=== PATIENT | female | born 1940 ===

== ENCOUNTER → 2018-06-23 09:46 | Outpatient (CLI) | payer MEDICARE, OTHER, SELFPAY | PROVIDERS: Visit Provider Family Medicine | DX: T81.31XA Disruption of external operation (surgical) wound, not elsewhere classified, initial encounter (principal); S91.001A Unspecified open wound, right ankle, initial encounter; S81.802A Unspecified open wound, left lower leg, initial encounter; I73.9 Peripheral vascular disease, unspecified | CPT/HCPCS: 11042; 93922; 99203 ==

== ENCOUNTER → 2018-06-30 09:56 | Outpatient (CLI) | payer MEDICARE, OTHER, SELFPAY | PROVIDERS: PCP Physician Assistant; Visit Provider Family Medicine | DX: S91.001A Unspecified open wound, right ankle, initial encounter (principal); S81.802A Unspecified open wound, left lower leg, initial encounter; I73.9 Peripheral vascular disease, unspecified | CPT/HCPCS: 11042; 87070; 87075; 87077; 87147; 87186; 87205; 97597 ==

== ENCOUNTER → 2018-07-07 10:02 | Outpatient (CLI) | payer MEDICARE, OTHER, SELFPAY | PROVIDERS: PCP Physician Assistant; Visit Provider Family Medicine | DX: S91.001A Unspecified open wound, right ankle, initial encounter (principal); S81.802A Unspecified open wound, left lower leg, initial encounter; I73.9 Peripheral vascular disease, unspecified; L08.9 Local infection of the skin and subcutaneous tissue, unspecified | CPT/HCPCS: 11042; 11043; 87070; 87075; 87077; 87147; 87186; 87205; 99214 ==

== ENCOUNTER → 2018-07-14 10:08 | Outpatient (CLI) | payer MEDICARE, OTHER, SELFPAY | PROVIDERS: PCP Physician Assistant; Visit Provider Family Medicine | DX: S91.001A Unspecified open wound, right ankle, initial encounter (principal); S81.802A Unspecified open wound, left lower leg, initial encounter; I73.9 Peripheral vascular disease, unspecified; L08.9 Local infection of the skin and subcutaneous tissue, unspecified | CPT/HCPCS: 97597; 99213 ==

== ENCOUNTER → 2018-07-28 10:07 | Outpatient (CLI) | payer MEDICARE, OTHER, SELFPAY | PROVIDERS: PCP Physician Assistant; Visit Provider Family Medicine | DX: S91.001A Unspecified open wound, right ankle, initial encounter (principal); S81.802A Unspecified open wound, left lower leg, initial encounter; I73.9 Peripheral vascular disease, unspecified | CPT/HCPCS: 11042 ==

== ENCOUNTER → 2018-08-04 13:30 | Outpatient (CLI) | payer MEDICARE, OTHER, SELFPAY | PROVIDERS: PCP Physician Assistant; Visit Provider Family Medicine | DX: S91.001A Unspecified open wound, right ankle, initial encounter (principal); S81.802D Unspecified open wound, left lower leg, subsequent encounter; I73.9 Peripheral vascular disease, unspecified | CPT/HCPCS: 15271; Q4196 ==

== ENCOUNTER → 2018-08-11 09:04 | Outpatient (CLI) | payer MEDICARE, OTHER, SELFPAY | PROVIDERS: PCP Physician Assistant; Visit Provider Family Medicine | DX: S91.001A Unspecified open wound, right ankle, initial encounter (principal); I73.9 Peripheral vascular disease, unspecified | CPT/HCPCS: 15271; Q4196 ==

== ENCOUNTER → 2018-08-18 09:39 | Outpatient (CLI) | payer MEDICARE, OTHER, SELFPAY | PROVIDERS: PCP Physician Assistant; Visit Provider Family Medicine | DX: S91.001A Unspecified open wound, right ankle, initial encounter (principal); I73.9 Peripheral vascular disease, unspecified | CPT/HCPCS: 15271; Q4196 ==

== ENCOUNTER → 2018-08-25 10:08 | Outpatient (CLI) | payer MEDICARE, OTHER, SELFPAY | PROVIDERS: PCP Physician Assistant; Visit Provider Family Medicine | DX: S91.001A Unspecified open wound, right ankle, initial encounter (principal); I73.9 Peripheral vascular disease, unspecified | CPT/HCPCS: 11042; 87070; 87077; 87186; 87205 ==

== ENCOUNTER → 2018-08-27 09:13 | Outpatient (CLI) | payer MEDICARE, OTHER, SELFPAY | PROVIDERS: PCP Physician Assistant; Visit Provider Family Medicine | DX: L89.613 Pressure ulcer of right heel, stage 3 (principal); S31.40XA Unspecified open wound of vagina and vulva, initial encounter; S71.102A Unspecified open wound, left thigh, initial encounter; B95.62 Methicillin resistant Staphylococcus aureus infection as the cause of diseases classified elsewhere; L08.9 Local infection of the skin and subcutaneous tissue, unspecified; G82.21 Paraplegia, complete; T88.7XXA Unspecified adverse effect of drug or medicament, initial encounter | CPT/HCPCS: 99214 ==

== ENCOUNTER → 2018-09-01 10:04 | Outpatient (CLI) | payer MEDICARE, OTHER, SELFPAY | PROVIDERS: PCP Physician Assistant; Visit Provider Family Medicine | DX: S91.001A Unspecified open wound, right ankle, initial encounter (principal); I73.9 Peripheral vascular disease, unspecified | CPT/HCPCS: 11042 ==

== ENCOUNTER → 2018-09-08 09:19 | Outpatient (CLI) | payer MEDICARE, OTHER, SELFPAY | PROVIDERS: PCP Physician Assistant; Visit Provider Family Medicine | DX: I87.311 Chronic venous hypertension (idiopathic) with ulcer of right lower extremity (principal); L97.812 Non-pressure chronic ulcer of other part of right lower leg with fat layer exposed | CPT/HCPCS: 15271; Q4132 ==

== ENCOUNTER → 2018-09-15 10:26 | Outpatient (CLI) | payer MEDICARE, OTHER, SELFPAY | PROVIDERS: PCP Physician Assistant; Visit Provider Family Medicine | DX: I87.311 Chronic venous hypertension (idiopathic) with ulcer of right lower extremity (principal); L97.812 Non-pressure chronic ulcer of other part of right lower leg with fat layer exposed | CPT/HCPCS: 15271; Q4132 ==

== ENCOUNTER → 2018-09-22 10:21 | Outpatient (CLI) | payer MEDICARE, OTHER, SELFPAY | PROVIDERS: PCP Physician Assistant; Visit Provider Family Medicine | DX: I87.311 Chronic venous hypertension (idiopathic) with ulcer of right lower extremity (principal); L97.312 Non-pressure chronic ulcer of right ankle with fat layer exposed | CPT/HCPCS: 97597 ==

== ENCOUNTER → 2018-09-29 11:41 | Outpatient (CLI) | payer MEDICARE, OTHER, SELFPAY | PROVIDERS: PCP Physician Assistant; Visit Provider Family Medicine | DX: Z48.817 Encounter for surgical aftercare following surgery on the skin and subcutaneous tissue (principal) | CPT/HCPCS: 99212; 99213 ==

== ENCOUNTER → 2021-11-30 09:33 | Outpatient (CLI) | payer MEDICARE, OTHER, SELFPAY | PROVIDERS: Referring Provider Dermatology MOHS-Micrographic Surgery; Visit Provider Nurse Practitioner Family | DX: S81.801A Unspecified open wound, right lower leg, initial encounter (principal) | CPT/HCPCS: 11042; 99203; 99213 ==

== ENCOUNTER → 2021-12-07 10:02 | Outpatient (CLI) | payer MEDICARE, OTHER, SELFPAY | PROVIDERS: PCP Physician Assistant; Referring Provider Dermatology MOHS-Micrographic Surgery; Visit Provider Family Medicine | DX: S81.801A Unspecified open wound, right lower leg, initial encounter (principal) | CPT/HCPCS: 99212 ==

== ENCOUNTER → 2021-12-14 10:55 | Outpatient (CLI) | payer MEDICARE, OTHER, SELFPAY | PROVIDERS: PCP Physician Assistant; Referring Provider Dermatology MOHS-Micrographic Surgery; Visit Provider Nurse Practitioner Family | DX: S81.801A Unspecified open wound, right lower leg, initial encounter (principal) | CPT/HCPCS: 11042 ==

== ENCOUNTER → 2021-12-28 11:15 | Outpatient (CLI) | payer MEDICARE, OTHER, SELFPAY | PROVIDERS: PCP Physician Assistant; Referring Provider Dermatology MOHS-Micrographic Surgery; Visit Provider Nurse Practitioner Family | DX: S81.801A Unspecified open wound, right lower leg, initial encounter (principal) | CPT/HCPCS: 15271; Q4196 ==

== ENCOUNTER → 2022-01-04 10:47 | Outpatient (CLI) | payer MEDICARE, OTHER, SELFPAY | PROVIDERS: PCP Physician Assistant; Referring Provider Dermatology MOHS-Micrographic Surgery; Visit Provider Nurse Practitioner Family | DX: S81.801A Unspecified open wound, right lower leg, initial encounter (principal); C44.722 Squamous cell carcinoma of skin of right lower limb, including hip | CPT/HCPCS: 15271; Q4196 ==

== ENCOUNTER → 2022-01-11 14:05 | Outpatient (CLI) | payer MEDICARE, OTHER, SELFPAY | PROVIDERS: PCP Physician Assistant; Referring Provider Dermatology MOHS-Micrographic Surgery; Visit Provider Nurse Practitioner Family | DX: S81.801A Unspecified open wound, right lower leg, initial encounter (principal) | CPT/HCPCS: 15271; Q4195 ==

== ENCOUNTER → 2022-01-18 13:33 | Outpatient (CLI) | payer MEDICARE, OTHER, SELFPAY | PROVIDERS: PCP Physician Assistant; Referring Provider Dermatology MOHS-Micrographic Surgery; Visit Provider Family Medicine | DX: S81.801A Unspecified open wound, right lower leg, initial encounter (principal) | CPT/HCPCS: 15271; Q4195 ==

== ENCOUNTER → 2022-01-25 13:54 | Outpatient (CLI) | payer MEDICARE, OTHER, SELFPAY | PROVIDERS: PCP Physician Assistant; Referring Provider Physician Assistant; Visit Provider Nurse Practitioner Family | DX: S81.801A Unspecified open wound, right lower leg, initial encounter (principal); T81.89XA Other complications of procedures, not elsewhere classified, initial encounter | CPT/HCPCS: 15271; Q4195 ==

== ENCOUNTER → 2022-03-01 10:32 | Outpatient (CLI) | payer MEDICARE, OTHER, SELFPAY | PROVIDERS: PCP Physician Assistant; Referring Provider Physician Assistant; Visit Provider Nurse Practitioner Family | DX: S81.801D Unspecified open wound, right lower leg, subsequent encounter (principal) | CPT/HCPCS: 99213 ==

== ENCOUNTER 2022-09-19 22:02 | Inpatient (IN) | payer MEDICARE, OTHER, SELFPAY ==
[2022-09-19 22:06] VITALS: BP 204/102; PULSE 97; O2SAT 95
--- NOTE | 2022-09-19 22:08 | DI.RAD.S_ITS ---
PROCEDURE: XR HIP W PEL IF DONE LT 2V INDICATIONS: fall, left hip appears dislocated. TECHNIQUE: AP pelvis with lateral views of the left hip. COMPARISON: None. FINDINGS: Bones: Evaluation is limited by patient position. There is a mildly displaced fracture of the proximal left femoral shaft with marked varus angulation medially. No definite dislocation of the hip joint. Soft tissues: The visualized bowel gas pattern is normal. No suspicious soft tissue calcifications. IMPRESSION: 1. Mildly displaced proximal left femoral shaft fracture with marked varus angulation medially. Dictated by: Karan Gilliland M.D. on 09/19/2022 at 23:06 Approved by: Karan Gilliland M.D. on 09/19/2022 at 23:08
--- NOTE | 2022-09-19 22:08 | DI.RAD.S_ITS ---
PROCEDURE: XR CHEST 1V INDICATIONS: fall, left hip appears dislocated. TECHNIQUE: One view of the chest was acquired. COMPARISON: None. FINDINGS: Surgical changes and devices: None. Lungs and pleura: Evaluation limited by patient rotation. There are confluent left perihilar opacities. No pleural effusions or pneumothorax. Mediastinum: Mediastinal contours appear normal. Heart size is normal. Bones and chest wall: No suspicious bony lesions. Overlying soft tissues appear unremarkable. IMPRESSION: 1. Confluent left perihilar opacities may represent a hilar mass versus adjacent airspace consolidation. Recommend further evaluation with a contrast enhanced CT. Dictated by: Karan Gilliland M.D. on 09/19/2022 at 23:18 Approved by: Karan Gilliland M.D. on 09/19/2022 at 23:20
[2022-09-19 22:09] VITALS: BP 201/102; PULSE 96; RESP 18; TEMP 36.8; O2SAT 97; BMI 25.7
--- NOTE | 2022-09-19 22:14 | ED_ITS ---
HPI - Extremity Injury (Lower) General Chief Complaint: Extremity Injury, Lower Stated Complaint: GLF- left hip pain Time Seen by Provider: 09/19/22 22:08 Source: patient and EMS Mode of arrival: EMS History of Present Illness HPI Narrative: This is an 81-year-old female with history of hypertension, dyslipidemia on metoprolol, atorvastatin and lisinopril. Patient was taking her trash can out walking the trash can down it started to roll away she fell forward and hurt her right hip. Patient was stuck on the ground for about an hour but was warm evening out. Neighbors found her EMS was contacted and patient was transported. Patient has pain and right hip. Despite denies injury elsewhere. Denies hitting her head, states she fell more forward. She denies headache, neck or back pain. No chest pain or shortness of breath. No nausea or vomiting. No loss of bowel or bladder control. Patient states her leg feels a little bit tingling. She can plantar and dorsiflex her foot on the right. Patient states she has never had any prior hip replacements or injuries. No known drug allergies. No tobacco, occasional alcohol, no illicit. Patient's primary care is [facility]. Related Data Home Medications Medication Instructions Recorded Confirmed atorvastatin 10 mg tablet 10 mg PO QAM 09/20/22 09/20/22 lisinopril 20 mg tablet 20 mg PO QAM 09/20/22 09/20/22 metoprolol succinate 50 mg 50 mg PO BID 09/20/22 09/20/22 tablet,extended release 24 hr Allergies Allergy/AdvReac Type Severity Reaction Status Date / Time No Known Drug Allergies Allergy Verified 09/19/22 22:13 Review of Systems Review of Systems ROS Unobtainable: All systems reviewed & are unremarkable except as noted in HPI and below Patient History Medical History (Updated 09/20/22 @ 04:38 by Jacque Haq DO) Dyslipidemia Essential hypertension History of bladder cancer Surgical History (Updated 09/20/22 @ 02:21 by MARIYA Bryant) History of appendectomy Family History (Updated 09/20/22 @ 02:22 by MARIYA Bryant) Father CVA (cerebral vascular accident) Mother Diabetes mellitus Social History (Updated 09/20/22 @ 02:23 by MARIYA Bryant) marital status: household members: none lives independently: Yes (In detention community) caregiver/support person: No Smoking Status: Former smoker Tobacco: How many years used: 40 alcohol intake: current substance use type: does not use additional social history: Daughter lives in [place]. Smoking Status: Never smoker alcohol intake frequency: 0-2 drinks per day Substance Use Type: does not use Exam Narrative Exam Narrative: GEN: Patient appears in mild distress. HEAD: No evidence of trauma, no raccoon/Mcconnell sign. NECK: Nontender, painless range of motion, trachea midline, no midline line tenderness,altered mental status, neuro deficit, recent EtOH. EYES: PERRLA, EOMI ENT: External inspection normal, trachea is midline, TM's are normal no hemotypanum, Nares are clear, no septal hematoma, no dental or oral injury, airway is normal and with normal occlusion, No bony tenderness RESP: Chest is nontender and has symmetric movement, no ecchymosis, breath sounds are normal no crackles, wheezes or rales CVS: Heart sounds are normal, no murmur noted, No JVD. ABG/GI: Nontender, soft, normal bowel sounds, no distention, no organomegaly, pelvic rock is negative but difficulty second to patient deformity at hip. NEURO: Oriented AOx3, neuro is grossly intact, sensation and motor is normal all 4 extremities moving, cranial nerves II through XII are intact, GCS is 15 PSYCH: Normal mood and affect SKIN: Intact, warm and dry, no crepitus and without decubitus BACK: No CVA tenderness, no vertebral tenderness, no step-off's, no crepitus EXT: Patient has obvious deformity at the right hip, patient is lying on her side but right hip is got deformity with from just below the hip the leg being internally rotated. Patient has 2+ dorsalis pedis. She is normal plantar dorsiflexion. She has sensation to light touch throughout the leg. Patient has normal range of motion of all other extremities. No other bony tenderness of the left lower extremity or other extremities. 2+ pulses in all 4 extremities. Initial Vital Signs Initial Vital Signs: Vital Signs Pulse Rate 97 H 09/19/22 22:06 Blood Pressure 204/102 H 09/19/22 22:06 Pulse Oximetry 95 06/08/23 22:06 Oxygen Delivery Method Room Air 09/19/22 22:06 Course Orders Ordered: ED Orders 09/19/22 22:08 Chest [XR chest 1V] Stat XR hip w pel if done LT 2V Stat 09/19/22 22:20 CBC Auto Diff [Complete Blood Count AUTO DIFF] Stat CMP [Comprehensive Metabolic Panel] Stat Lipase Stat Type and Screen Stat Acetaminophen (Acetaminophen 325 Mg Tablet) 650 mg PO Q6H PRN PRN Reason: Fever/Mild Pain (1-3) Last Admin: 09/20/22 02:44 Dose: 650 mg Documented By: CT Calcium Carbonate (Calcium Carbonate 500 Mg Tab) 1,000 mg PO Q4HR PRN PRN Reason: Dyspepsia Dextrose/Sodium Chloride (Dextrose 5%-0.9% Ns) 1,000 mls @ 80 mls/hr IV CONT NUBIA Last Admin: 09/20/22 01:03 Dose: 80 mls/hr Documented By: SB Lisinopril (Lisinopril 20 Mg Tablet) 20 mg PO QAM NUBIA Lorazepam (Lorazepam 2 Mg/Ml Inj) 0.5 mg IV Q4HR PRN PRN Reason: Muscle Spasm Metoprolol Succinate (Metoprolol Er 50 Mg Tablet) 50 mg PO BID NUBIA Morphine Sulfate (Morphine 4 Mg/Ml Inj) 3 mg IV Q4HR PRN PRN Reason: Pain, Severe 5-10 Last Admin: 09/20/22 01:10 Dose: 3 mg Documented By: SB Naloxone HCl (Naloxone 0.4 Mg/Ml Vial) 0.2 mg IV Q2MIN PRN PRN Reason: Opiate Reversal Ondansetron HCl (Ondansetron 4 Mg/2 Ml Inj) 4 mg IV Q8HR PRN PRN Reason: Nausea And Vomiting Sennosides (Sennosides 8.6 Mg Tablet) 17.2 mg PO BEDTIME [facility] Discontinued Medications Lisinopril (Lisinopril 20 Mg Tablet) 20 mg PO NOW ONE Stop: 09/19/22 23:56 Last Admin: 09/20/22 01:04 Dose: Not Given Documented By: SB Metoprolol Tartrate (Metoprolol Tartrate 5 Mg/5 Ml Inj) 5 mg IV Q15M NUBIA Stop: 09/20/22 00:16 Last Admin: 09/20/22 02:48 Dose: Not Given Documented By: Admin: 09/20/22 01:04 Dose: Not Given Documented By: Admin: 09/20/22 00:55 Dose: Not Given Documented By: RAHAT Morphine Sulfate (Morphine 4 Mg/Ml Inj) 4 mg IV Q4HR PRN PRN Reason: Pain, Severe (7-10) Last Admin: 09/19/22 23:28 Dose: 4 mg Documented By: BULMARO Vital Signs Vital signs: Vital Signs - 8 hr 09/19/22 22:09 09/19/22 22:06 09/19/22 22:06 Temperature 98.2 F Pulse Rate 96 H 97 H Respiratory Rate 18 Blood Pressure 201/102 H 204/102 H Pulse Oximetry 97 95 Oxygen Delivery Method Room Air Room Air 09/19/22 22:30 09/19/22 23:00 Temperature Pulse Rate 88 103 H Respiratory Rate Blood Pressure Pulse Oximetry 96 98 Oxygen Delivery Method Room Air MDM - Extremity Injury (Lower) Lab Data 09/19/22 22:20 09/19/22 22:20 Labs: Lab Results 09/19/22 09/19/22 09/19/22 Range/Units 22:20 22:20 22:20 WBC 12.0 H (4.5-11.0) X10^3/uL RBC 3.48 L (4.0-5.2) X10^6/uL Hgb 10.8 L (12.0-16.0) g/dL Hct 31.9 L (36-46) % MCV 91.7 (80-100) fL MCH 31.0 (26-34) PG MCHC 33.8 (30-36) % RDW 13.3 (11.6-14.8) % Plt Count 236 (150-400) X10^3/uL Neut % (Auto) 84.0 H (50-75) % Lymph % (Auto) 8.2 L (25-40) % [place] % (Auto) 6.9 (3-14) % Eos % (Auto) 0.4 L (2-4) % Baso % (Auto) 0.5 (0-2) % Neut # (Auto) 49802 H (8084-6045) /uL Lymph # (Auto) 1000 L (7271-1613) /uL [place] # (Auto) 800 (0-900) /uL Eos # (Auto) 0 (0-450) /uL Baso # (Auto) 100 (0-100) /uL Sodium 137 (137-145) mmol/L Potassium 3.7 (3.4-5.1) mmol/L Chloride 105 (98-107) mmol/L Carbon Dioxide 25 (22-32) mmol/L BUN 18 H (7-17) mg/dL Creatinine 0.50 L (0.52-1.04) mg/dL Estimated GFR > 60 (>60) mL/min BUN/Creatinine Ratio 36.0 H (6-22) Glucose 128 H (80-110) mg/dL Calcium 9.0 (8.4-10.2) mg/dL Magnesium (1.6-2.3) mg/dL Total Bilirubin 0.5 (0.2-1.3) mg/dL AST 32 (14-36) IU/L ALT 17 (<35) IU/L Alkaline Phosphatase 115 (38-126) U/L Troponin I (0.01-0.034) ng/mL Total Protein 6.6 (6.3-8.2) g/dL Albumin 3.6 (3.5-5.0) g/dL Globulin 3.0 (1.7-4.1) g/dL Albumin/Globulin Ratio 1.2 (1.0-2.8) Lipase 114 (23-300) U/L Procalcitonin (<0.5) ng/mL TSH (0.47-4.68) uIU/mL Free T4 (0.78-2.19) ng/dL Blood Type O Negative Antibody Screen Negative 09/19/22 09/19/22 09/19/22 Range/Units 22:20 22:20 22:20 WBC (4.5-11.0) X10^3/uL RBC (4.0-5.2) X10^6/uL Hgb (12.0-16.0) g/dL Hct (36-46) % MCV (80-100) fL MCH (26-34) PG MCHC (30-36) % RDW (11.6-14.8) % Plt Count (150-400) X10^3/uL Neut % (Auto) (50-75) % Lymph % (Auto) (25-40) % [place] % (Auto) (3-14) % Eos % (Auto) (2-4) % Baso % (Auto) (0-2) % Neut # (Auto) (4657-1297) /uL Lymph # (Auto) (5619-3412) /uL [place] # (Auto) (0-900) /uL Eos # (Auto) (0-450) /uL Baso # (Auto) (0-100) /uL Sodium (137-145) mmol/L Potassium (3.4-5.1) mmol/L Chloride (98-107) mmol/L Carbon Dioxide (22-32) mmol/L BUN (7-17) mg/dL Creatinine (0.52-1.04) mg/dL Estimated GFR (>60) mL/min BUN/Creatinine Ratio (6-22) Glucose (80-110) mg/dL Calcium (8.4-10.2) mg/dL Magnesium 1.2 L (1.6-2.3) mg/dL Total Bilirubin (0.2-1.3) mg/dL AST (14-36) IU/L ALT (<35) IU/L Alkaline Phosphatase (38-126) U/L Troponin I 0.025 (0.01-0.034) ng/mL Total Protein (6.3-8.2) g/dL Albumin (3.5-5.0) g/dL Globulin (1.7-4.1) g/dL Albumin/Globulin Ratio (1.0-2.8) Lipase (23-300) U/L Procalcitonin (<0.5) ng/mL TSH 2.09 (0.47-4.68) uIU/mL Free T4 1.18 (0.78-2.19) ng/dL Blood Type Antibody Screen 09/19/22 Range/Units 22:20 WBC (4.5-11.0) X10^3/uL RBC (4.0-5.2) X10^6/uL Hgb (12.0-16.0) g/dL Hct (36-46) % MCV (80-100) fL MCH (26-34) PG MCHC (30-36) % RDW (11.6-14.8) % Plt Count (150-400) X10^3/uL Neut % (Auto) (50-75) % Lymph % (Auto) (25-40) % [place] % (Auto) (3-14) % Eos % (Auto) (2-4) % Baso % (Auto) (0-2) % Neut # (Auto) (6772-9084) /uL Lymph # (Auto) (1142-7421) /uL [place] # (Auto) (0-900) /uL Eos # (Auto) (0-450) /uL Baso # (Auto) (0-100) /uL Sodium (137-145) mmol/L Potassium (3.4-5.1) mmol/L Chloride (98-107) mmol/L Carbon Dioxide (22-32) mmol/L BUN (7-17) mg/dL Creatinine (0.52-1.04) mg/dL Estimated GFR (>60) mL/min BUN/Creatinine Ratio (6-22) Glucose (80-110) mg/dL Calcium (8.4-10.2) mg/dL Magnesium (1.6-2.3) mg/dL Total Bilirubin (0.2-1.3) mg/dL AST (14-36) IU/L ALT (<35) IU/L Alkaline Phosphatase (38-126) U/L Troponin I (0.01-0.034) ng/mL Total Protein (6.3-8.2) g/dL Albumin (3.5-5.0) g/dL Globulin (1.7-4.1) g/dL Albumin/Globulin Ratio (1.0-2.8) Lipase (23-300) U/L Procalcitonin 0.05 (<0.5) ng/mL TSH (0.47-4.68) uIU/mL Free T4 (0.78-2.19) ng/dL Blood Type Antibody Screen Imaging Data Chest x-ray: Radiologist's Impression: Close Hip X-Ray (Signed) Karan Gilliland - 09/19/22 Chest X-Ray (Signed) Karan Gilliland - 09/19/[address] [address] XRay Report Signed Patient: Gini Sylvester MR#: [id number] : 1940 Acct:[id number] Age/Sex: 81 / F Date of Service: 09/19/22 Loc: ED Accession Number: [id number] ?? Procedure: XR chest 1V Ordering Provider: Jacque Haq D.O. PROCEDURE:? XR CHEST 1V ? INDICATIONS:? fall, left hip appears dislocated. ? TECHNIQUE:? One view of the chest was acquired.? ? COMPARISON:? None. ? FINDINGS:? ? Surgical changes and devices:? None.? ? Lungs and pleura:? Evaluation limited by patient rotation.? There are confluent left perihilar opacities.? No pleural effusions or pneumothorax.? ? Mediastinum:? Mediastinal contours appear normal.? Heart size is normal.? ? Bones and chest wall:? No suspicious bony lesions.? Overlying soft tissues appear unremarkable.? ? IMPRESSION:? ? 1. Confluent left perihilar opacities may represent a hilar mass versus adjacent airspace consolidation.? Recommend further evaluation with a contrast enhanced CT. ? ? Dictated by: Karan Gilliland M.D. on 09/19/2022 at 23:18 ? ? Approved by: Karan Gilliland M.D. on 09/19/2022 at 23:20?? pelvic xray: Radiologist's Impression: Gini Sylvester??81??F??1940 ? Allergy/Adv: No Known Drug Allergies Close Hip X-Ray (Signed) Karan Gilliland - 09/19/22 Chest X-Ray 09/19/22 [place] [address] XRay Report Signed Patient: Gini Sylvester MR#: [id number] : 1940 Acct:[id number] Age/Sex: 81 / F Date of Service: 09/19/22 Loc: ED Accession Number: [id number] ?? Procedure: XR hip w pel if done LT 2V Ordering Provider: Jacque Haq D.O. PROCEDURE:? XR HIP W PEL IF DONE LT 2V ? INDICATIONS:? fall, left hip appears dislocated. ? TECHNIQUE:? AP pelvis with lateral views of the left hip. ? COMPARISON:? None. ? FINDINGS:? ? Bones:? Evaluation is limited by patient position.? There is a mildly displaced fracture of the proximal left femoral shaft with marked varus angulation medially.? No definite dislocation of the hip joint. ? Soft tissues:? The visualized bowel gas pattern is normal.? No suspicious soft tissue calcifications.? ? ? IMPRESSION:? ? 1. Mildly displaced proximal left femoral shaft fracture with marked varus angulation medially. ? ? ? Dictated by: Karan Gilliland M.D. on 09/19/2022 at 23:06 ? ? Approved by: Karan Gilliland M.D. on 09/19/2022 at 23:08?? ECG Data Attestation: I personally reviewed and interpreted this ECG as follows: Prior ECG tracings: not available for review Interpretation: Rate of 98, QRS is 74 QTC of 428. Irregular rhythm AFib. Nonspecific change. MDM Narrative Medical decision making narrative: This is an 81-year-old pleasant female with no history anticoagulation with hypertension and dyslipidemia who describes falling while taking out her trash and the can got away from her pulling her forward and down. Patient has obvious deformity at the left hip initially suspected to be dislocated but is actually fractured with significant angulation. Patient is neurovascularly intact she does describe a little bit of numbness and tingling. Chest obvious fracture, some confluent left perihilar opacities show white count 12 hemoglobin of 10, depressed comparison. Normal platelets 236. Electrolytes overall normal BUN 18, creatinine 0.5, glucose 128, troponin LFTs are all negative. Patient denies hitting her head, neck pain or other injuries. Patient is tolerating degree of angulation quite well, she would 150 mcg of fentanyl in route, she did have some additional doses of pain medication here. Case was discussed with Dr. Wyman, orthopedic surgery: He was asked to review images, did so and does ask for patient to be placed in Gross's traction with admission to hospitalist service. Spoke with AISSATOU Rees: Accepts for admission. Patient was placed in Gross's traction here in the department with myself and nursing, patient was given pain medication just prior. She tolerated procedure remarkably well. Patient continued to be neurovascularly intact pre and post placement. Still has some deformity at anterior thigh. Continued to be hemodynamically stable here in the department. No new or worsening neurovascular changes. Patient was type and screened for potential bleeding. Discharge Plan Departure Patient Disposition: Admitted As Inpatient Clinical Impression: Closed left femoral fracture, Fall Admit Date/Time: 09/19/22 23:26 Admit Provider: Lanny Rees
[2022-09-19 22:29] LABS: Add Manual Diff / Slide Review NO; Basophils Absolute Auto 100 /uL (0-100); Basophils Percent Auto 0.5 % (0-2); Eosinophils Absolute Auto 0 /uL (0-450); Eosinophils Percent Auto 0.4 % (2-4); Hematocrit 31.9 % (36-46); Hemoglobin 10.8 g/dL (12.0-16.0); Lymphocytes Absolute Auto 1000 /uL (1100-4500); Lymphocytes Percent Auto 8.2 % (25-40); Mean Corpuscular HGB Conc 33.8 % (30-36); Mean Corpuscular Volume 91.7 fL (80-100); Monocytes Absolute Auto 800 /uL (0-900); Monocytes Percent Auto 6.9 % (3-14); Neutrophils Absolute Auto 10100 /uL (1500-7000); Platelet Count 236 X10^3/uL (150-400); Red Blood Cell Count 3.48 X10^6/uL (4.0-5.2); Red Cell Distribution Width 13.3 % (11.6-14.8)
[2022-09-19 22:30] VITALS: PULSE 88; O2SAT 96
[2022-09-19 22:46] LABS: Alanine Aminotransferase 17 IU/L (<35); Albumin 3.6 g/dL (3.5-5.0); Albumin Globulin Ratio 1.2 (1.0-2.8); Alkaline Phosphatase 115 U/L (38-126); Aspartate Aminotransferase 32 IU/L (14-36); Bilirubin Total 0.5 mg/dL (0.2-1.3); Blood Urea Nitrogen 18 mg/dL (7-17); Carbon Dioxide 25 mmol/L (22-32); Chloride 105 mmol/L (98-107); Estimated Glomerular Filt Rate > 60 mL/min (>60); Glucose 128 mg/dL (80-110); HEMOLYSIS 40 (0-50); Lipase 114 U/L (23-300); Potassium 3.7 mmol/L (3.4-5.1); Sodium 137 mmol/L (137-145); Total Protein 6.6 g/dL (6.3-8.2)
[2022-09-19 23:00] VITALS: PULSE 103; O2SAT 98
[2022-09-19] MEDS: MORPHINE 4 MG/ML INJ IV (23:28)
[2022-09-19 23:30] VITALS: BP 191/106; PULSE 95; O2SAT 97
--- NOTE | 2022-09-19 23:44 | P.HP_ITS ---
History of Present Illness History of Present Illness Date Patient Seen: 09/19/22 Time Patient Seen: 23:44 Chief complaint: GLF- left femur fracture, Afib Narrative: Gini Sylvester is a jam 81-year-old female with history of hypertension, dyslipidemia on metoprolol, atorvastatin and lisinopril.?Presented to the ED for GLF taking out the trash can down the hill of her driveway, she was found down (approx 1 hr) by neighbors brought into the ED via EMS for severe left hip pain notable varus angulation. Denies injury elsewhere, hitting her head, LOC, states she fell more forward.? In the ED patient presented with hypertensive urgency 201/102, and demonstrated atrial fibrillation with a controlled rate of [address] or T-wave changes on EKG. She denies a history of atrial fibrillation. She denies headache, neck or back pain, chest pain, shortness of breath, abd pain, nausea, vomiting.? No loss of bowel or bladder control.? Patient states her left leg feels a little bit tingling.? She can plantar and dorsiflex her foot on the right.? Patient states she has never had any prior hip replacements or injuries, no anticoagulants or ASA, No known drug allergies.? No tobacco, occasional alcohol, no illicit.? Patient's primary care is [facility]. Patient was placed in Gross's traction in ED per ortho recommendation, patient tolerated remarkably well. The time of admit temp 98.2?, 191/106, 95, 18, 97% on room air. WBC 12 with a left shift neutrophils 10,000, lymph 1000. HGB 10/HCT 31, the rest of patient's labs are normal with the exception of glucose 128. Chest x-ray shows confluent left perihilar opacities. Left hip x-ray shows mildly displaced proximal left femur fracture with marked varus angulation medially. Patient admitted for closed left femur fracture, new onset atrial fibrillation. [facility] Medical History (Updated 09/20/22 @ 02:21 by MARIYA Bryant) Dyslipidemia Essential hypertension History of bladder cancer Surgical History (Updated 09/20/22 @ 02:21 by MARIYA Bryant) History of appendectomy Family History (Updated 09/20/22 @ 02:22 by MARIYA Bryant) Father CVA (cerebral vascular accident) Mother Diabetes mellitus Social History (Updated 09/20/22 @ 02:23 by Lanny Rees [facility]) marital status: household members: none lives independently: Yes (In [facility] community) caregiver/support person: No Smoking Status: Former smoker Tobacco: How many years used: 40 alcohol intake: current substance use type: does not use additional social history: Daughter lives in [place]. Meds Home Medications and Allergies Allergies Allergy/AdvReac Type Severity Reaction Status Date / Time No Known Drug Allergies Allergy Verified 09/19/22 22:13 Review of Systems Review of Systems Narrative: All 12 point systems reviewed with the patient and are negative except otherwise documented. Exam Vital Signs (past 8 hours): - 09/19/22 22:09 09/19/22 22:06 09/19/22 22:06 Temperature 98.2 F Pulse Rate 96 H 97 H Respiratory Rate 18 Blood Pressure 201/102 H 204/102 H Pulse Oximetry 97 95 Oxygen Delivery Method Room Air Room Air 09/19/22 22:30 09/19/22 23:00 09/19/22 23:30 Temperature Pulse Rate 88 103 H Respiratory Rate Blood Pressure 191/106 H Pulse Oximetry 96 98 Oxygen Delivery Method Room Air 09/19/22 23:30 Temperature Pulse Rate 95 H Respiratory Rate Blood Pressure Pulse Oximetry 97 Oxygen Delivery Method Room Air Oxygen Delivery Method Room Air Narrative Exam Narrative: General: Patient is a well-developed, well-nourished in no distress at this time. HEENT: Normocephalic, atraumatic, extraocular muscles intact, oral pharynx is clear and mucous membranes are moist. Neck is supple and symmetric, trachea is midline, no adenopathy, no thyroid enlargement, nontender, no masses palpated. Negative for JVD Chest: Normal AP diameter and contour without kyphoscoliosis, Equal chest rise without nasal flaring, retractions, tachypneic or labored breathing. Lungs: Auscultation of all lung cardenas are clear without adventitious sounds, wheezes, rhonchi, or rales. Cardio: regular rate and rhythm without murmur, rubs, or gallops, no carotid bruit, no cardiac pulsations present. Abdomen: Soft nontender, negative for organomegaly, or masses. Bowel sounds are present in all 4 quadrants without guarding or rebound, no CVA tenderness. Musculoskeletal: Right ext & left upper ext:Muscle strength and tone are equal, no effusions, cyanosis, clubbing or edema present. intact radial and pedal pulses are normal. Left Lower Ext:obvious gross deformity at the left hip, from just below the hip the leg being internally rotated.? Patient has 2+ dorsalis pedis.?normal plantar dorsiflexion.sensation to light touch throughout the leg. No other bony tenderness of the left lower extremity or other extremities. Patient placed in Gross's traction in ED-patient tolerated procedure well. Skin: Warm dry and intact without rashes, ulcerations or petechiae. Neuro: Alert and orientated x3, no gross deficits noted of cranial nerves. Psych: Patient has a well-kept appearance, appropriate affect, mental status attitude thought context and judgment are appropriate for age. Objective Labs 09/19/22 22:20 09/19/22 22:20 Labs: Laboratory Results - last 24 hr 09/19/22 09/19/22 09/19/22 22:20 22:20 22:20 WBC 12.0 H RBC 3.48 L Hgb 10.8 L Hct 31.9 L MCV 91.7 MCH 31.0 MCHC 33.8 RDW 13.3 Plt Count 236 Neut % (Auto) 84.0 H Lymph % (Auto) 8.2 L [place] % (Auto) 6.9 Eos % (Auto) 0.4 L Baso % (Auto) 0.5 Neut # (Auto) 82125 H Lymph # (Auto) 1000 L [place] # (Auto) 800 Eos # (Auto) 0 Baso # (Auto) 100 Sodium 137 Potassium 3.7 Chloride 105 Carbon Dioxide 25 BUN 18 H Creatinine 0.50 L Estimated GFR > 60 BUN/Creatinine Ratio 36.0 H Glucose 128 H Calcium 9.0 Total Bilirubin 0.5 AST 32 ALT 17 Alkaline Phosphatase 115 Total Protein 6.6 Albumin 3.6 Globulin 3.0 Albumin/Globulin Ratio 1.2 Lipase 114 Blood Type O Negative Antibody Screen Negative Assessment & Plan Assessment & Plan narrative: Gini Gomezis an 81-year-old female with history of hypertension, dyslipidemia on metoprolol, atorvastatin and lisinopril. Patient admitted for ground level fall resulting in closed left femur fracture, new onset atrial fibrillation. Patient will taken to the OR tomorrow for left femur repair, the following day workup of new onset atrial fibrillation to include echo and initiating Eliquis per surgeon recommendations, monitor and further evaluation of leukocytosis, r/o infection. #GLF resulting in pathologic left femur fracture, closed, acute, present on admission * mildly displaced proximal left femur fracture with marked varus angulation medially * Patient placed in Gross's traction in ED * Dr. Wyman Ortho to consult * Pain management-ice morphine, ativan for muscle spasms * Elkins placed, monitor I&O * NPO at midnight * Holding VTE medication due to pending surgery * D5 NS, VS q.6 hours while NPO # atrial fibrillation, new onset, acute, present on admission * Found on EKG in ED-rate controlled rate 98 * Placed on tele * Unable to initiate Eliquis due to pending surgery-start after surgery per Orthopedic surgeon. * Ordered TSH, T4 * Echo ordered for 09/21 after surg. # hypertensive urgency, in the setting of hypertension, acute on chronic, present on admission * In ED 201/102, admit 196/106, 182/88, repeat 165/84 * IV metoprolol 5 mg Q 15 minutes x3-while NPO Give for SBP>180,DBP>100,HR>110 x 30 min sustained give for one of the above * continue metoprolol & lisinopril # dyslipidemia, chronic, present on admission * Continue atorvastatin following surgery * lipids ordered # leukocytosis with left shift, mild, acute, present on admission * WBC 12, neutrophils 10,000, lymph 1000 * Likely the result of the fall but will rule out infection * Blood cultures, UA, CRP, procalcitonin Code status: Full Surrogate decision maker: Daughter Kathy Chung DVT/VTE prophylaxis: Medication held due to surgery, SCD for right only. Disposition: Patient admitted for surgery and repair of left femur fracture, and new onset atrial fibrillation workup. Expected length of stay to exceed 2 midnights I have utilized all available immediate resources to obtain, update, or review the patient's current medications. I confirmed that the patient's advanced care plan is present, Code status is documented and/or surrogate decision maker is listed in the patient's medical record. I have personally reviewed patient's chart notes from PCP, specialists, diagnostic imaging, and laboratory results. Scores GCS Elvis coma scale eye opening: Spontaneous Elvis coma scale verbal response: Orientated [place] coma scale motor response: Obey commands [place] coma scale total score: 15
[2022-09-20] VITALS (24 sets, daily range): BP systolic 96–182; BP diastolic 52–111; PULSE 67–97; RESP 12–31; TEMP 36.1–37.1; O2SAT 91–98; BMI 25.7
[2022-09-20] LABS: Magnesium 1.2 mg/dL (1.6-2.3)
[2022-09-20 00:13] LABS: Troponin I 0.025 ng/mL (0.01-0.034)
[2022-09-20 00:31] LABS: Thyroid Stimulating Hormone 2.09 uIU/mL (0.47-4.68)
[2022-09-20 01:02] LABS: Procalcitonin 0.05 ng/mL (<0.5)
[2022-09-20] MEDS: DEXTROSE 5%-0.9% NS 1,000 ML 80 ML IV ×2 (01:03→09:39)
[2022-09-20] MEDS: MORPHINE 4 MG/ML INJ 3 MG IV ×2 (01:10→05:08)
[2022-09-20 01:41] LABS: Free T4, Direct Thyroxine 1.18 ng/dL (0.78-2.19)
[2022-09-20] MEDS: ACETAMINOPHEN 325 MG TABLET 650 MG PO ×2 (02:44→16:44)
[2022-09-20] MEDS: MAGNESIUM SULFATE 2 GM/50 ML PIGGYBACK IV (05:15)
[2022-09-20] MEDS: lisinopriL 20 MG TABLET PO (05:15)
[2022-09-20 06:02] LABS: Add Manual Diff / Slide Review NO; Basophils Absolute Auto 0 /uL (0-100); Basophils Percent Auto 0.1 % (0-2); Eosinophils Absolute Auto 0 /uL (0-450); Hematocrit 31.7 % (36-46); Hemoglobin 10.9 g/dL (12.0-16.0); Lymphocytes Absolute Auto 800 /uL (1100-4500); Lymphocytes Percent Auto 8.2 % (25-40); Mean Corpuscular HGB Conc 34.5 % (30-36); Mean Corpuscular Hemoglobin 31.7 PG (26-34); Monocytes Absolute Auto 600 /uL (0-900); Monocytes Percent Auto 6.2 % (3-14); Neutrophils Absolute Auto 7900 /uL (1500-7000); Neutrophils Percent Auto 85.5 % (50-75); Platelet Count 232 X10^3/uL (150-400); Red Blood Cell Count 3.45 X10^6/uL (4.0-5.2); Red Cell Distribution Width 13.2 % (11.6-14.8); White Blood Cell Count 9.3 X10^3/uL (4.5-11.0)
[2022-09-20 06:10] LABS: INR 1.1 (0.9-1.3); Prothrombin Time 12.6 SECONDS (10.1-12.7)
[2022-09-20 06:23] LABS: BUN Creatinine Ratio 34.7 (6-22); Blood Urea Nitrogen 17 mg/dL (7-17); Calcium 9.6 mg/dL (8.4-10.2); Carbon Dioxide 28 mmol/L (22-32); Chloride 103 mmol/L (98-107); Cholesterol 172 mg/dL (140-199); Estimated Glomerular Filt Rate > 60 mL/min (>60); Glucose 136 mg/dL (80-110); HDL Cholesterol 60 mg/dL (40-60); HEMOLYSIS < 15 (0-50); LDL Cholesterol Calculated 99 mg/dL (<100); Sodium 136 mmol/L (137-145); Triglycerides 65 mg/dL (35-150)
[2022-09-20 07:25] LABS: Troponin I 0.128 ng/mL (0.01-0.034)
[2022-09-20 07:27] LABS: Appearance Urine UA CLEAR; Bilirubin Urine UA NEGATIVE (NEGATIVE); Color Urine UA YELLOW; Glucose Urine UA NEGATIVE (Negative); Ketones Urine UA 1+ (NEGATIVE); Leukocyte Esterase Urine UA NEGATIVE (NEGATIVE); Nitrite Urine UA NEGATIVE (Negative); Occult Blood Urine UA NEGATIVE (Negative); Protein Urine UA NEGATIVE (Negative); Specific Gravity Urine UA >=1.030 (1.000-1.035); Urobilinogen Urine UA 0.2 E.U./dL (0.2)
[2022-09-20 07:33] LABS: Bacteria Urine None Seen; Culture Indicated Urine Cult Not Indicated; RBC Urine None Seen (0-5/HPF); Squamous Epithelial Cell Urine None Seen (0-5/HPF); Urine Comments Microscopic Normal; WBC Urine None Seen (0-5/HPF)
[2022-09-20] MEDS: METOPROLOL ER 50 MG TABLET PO ×2 (09:34→21:08)
[2022-09-20 12:37] LABS: Magnesium 1.7 mg/dL (1.6-2.3)
[2022-09-20 12:40] LABS: Troponin I 0.085 ng/mL (0.01-0.034)
--- NOTE | 2022-09-20 12:46 | P.HP_ITS ---
History of Present Illness History of Present Illness Date Patient Seen: 09/20/22 Time Patient Seen: 12:46 Chief complaint: GLF- left femur fracture, Afib Narrative: Gini is a pleasant 81-year-old female with past medical history of AFib and hypertension who presented to the emergency department at [facility] overnight after a ground level fall when she was chasing her garbage can down the alley and she slipped and fell. Imaging in the emergency department demonstrated a displaced subtrochanteric femur fracture. She lives in [place] by herself. She was previously fully ambulatory without assistive devices. Currently denies any distal numbness or tingling. Denies any recent nausea, vomiting, diarrhea, fevers, chills or any other constitutional symptoms. No other musculoskeletal complaints at this time. [facility] Medical History Dyslipidemia Essential hypertension History of bladder cancer Surgical History History of appendectomy Family History Father CVA (cerebral vascular accident) Mother Diabetes mellitus Social History marital status: household members: none lives independently: Yes (In shelter community) caregiver/support person: No Smoking Status: Former smoker Tobacco: How many years used: 40 alcohol intake: current substance use type: does not use additional social history: Daughter lives in [place]. Meds Home Medications and Allergies Home Medications Medication Instructions Recorded Confirmed Type atorvastatin 10 mg tablet 10 mg PO QAM 09/20/22 09/20/22 History lisinopril 20 mg tablet 20 mg PO QAM 09/20/22 09/20/22 History metoprolol succinate 50 mg 50 mg PO BID 09/20/22 09/20/22 History tablet,extended release 24 hr Allergies Allergy/AdvReac Type Severity Reaction Status Date / Time No Known Drug Allergies Allergy Verified 09/19/22 22:13 Review of Systems Review of Systems ROS: Yes All systems reviewed with the patient and are negative except as otherwise documented Exam Vital Signs (past 8 hours): - 09/20/22 05:00 09/20/22 05:15 09/20/22 08:15 Temperature 98.7 F 97.0 F L Pulse Rate 96 H 96 H 77 Respiratory Rate 16 16 Blood Pressure 141/77 H 141/77 H 107/52 L Pulse Oximetry 94 96 Oxygen Delivery Method Oxygen Flow Rate 0 09/20/22 09:34 09/20/22 12:25 Temperature 98 F Pulse Rate 77 77 Respiratory Rate 16 Blood Pressure 107/52 L 142/77 H Pulse Oximetry 98 Oxygen Delivery Method Room Air Oxygen Flow Rate Oxygen Delivery Method Room Air Oxygen Flow Rate 0 Narrative Exam Narrative: HEENT: Head atraumatic eyes anicteric moist mucous membranes Cardiovascular: Palpable peripheral pulses extremities are warm and well perfused Respiratory: Breathing comfortably on room air Psychiatric: Appropriate mood and affect Neuro: No acute deficits Musculoskeletal: Exam of left lower extremity demonstrates an abrasion over her patella, leg is held flexed and internally rotated. Sensation intact to light touch in sural, saphenous, superficial peroneal and deep peroneal nerve distributions. 2+ dorsalis pedis pulse with brisk capillary refill less than 2 seconds. Objective Imaging Left hip: My impression: AP and cross-table lateral left hip demonstrates: Displaced, transverse subtrochanteric femur fracture Labs 09/20/22 05:38 09/20/22 05:38 Labs: Laboratory Results - last 24 hr 09/19/22 09/19/22 09/19/22 22:20 22:20 22:20 WBC 12.0 H RBC 3.48 L Hgb 10.8 L Hct 31.9 L MCV 91.7 MCH 31.0 MCHC 33.8 RDW 13.3 Plt Count 236 Neut % (Auto) 84.0 H Lymph % (Auto) 8.2 L [place] % (Auto) 6.9 Eos % (Auto) 0.4 L Baso % (Auto) 0.5 Neut # (Auto) 11319 H Lymph # (Auto) 1000 L [place] # (Auto) 800 Eos # (Auto) 0 Baso # (Auto) 100 PT INR Sodium 137 Potassium 3.7 Chloride 105 Carbon Dioxide 25 BUN 18 H Creatinine 0.50 L Estimated GFR > 60 BUN/Creatinine Ratio 36.0 H Glucose 128 H Calcium 9.0 Magnesium Total Bilirubin 0.5 AST 32 ALT 17 Alkaline Phosphatase 115 Troponin I Total Protein 6.6 Albumin 3.6 Globulin 3.0 Albumin/Globulin Ratio 1.2 Triglycerides Cholesterol LDL Cholesterol, Calc HDL Cholesterol Lipase 114 Procalcitonin TSH Free T4 Urine Color Urine Appearance Urine pH Ur Specific [place] Urine Protein Urine Glucose (UA) Urine Ketones Urine Occult Blood Urine Nitrate Urine Bilirubin Urine Urobilinogen Ur Leukocyte Esterase Urine RBC Urine WBC Ur Squamous Epith Cells Urine Bacteria Ur Culture Indicated? Micro UA Comment Blood Type O Negative Antibody Screen Negative 09/19/22 09/19/22 09/19/22 22:20 22:20 22:20 WBC RBC Hgb Hct MCV MCH MCHC RDW Plt Count Neut % (Auto) Lymph % (Auto) [place] % (Auto) Eos % (Auto) Baso % (Auto) Neut # (Auto) Lymph # (Auto) [place] # (Auto) Eos # (Auto) Baso # (Auto) PT INR Sodium Potassium Chloride Carbon Dioxide BUN Creatinine Estimated GFR BUN/Creatinine Ratio Glucose Calcium Magnesium 1.2 L Total Bilirubin AST ALT Alkaline Phosphatase Troponin I 0.025 Total Protein Albumin Globulin Albumin/Globulin Ratio Triglycerides Cholesterol LDL Cholesterol, Calc HDL Cholesterol Lipase Procalcitonin TSH 2.09 Free T4 1.18 Urine Color Urine Appearance Urine pH Ur Specific [place] Urine Protein Urine Glucose (UA) Urine Ketones Urine Occult Blood Urine Nitrate Urine Bilirubin Urine Urobilinogen Ur Leukocyte Esterase Urine RBC Urine WBC Ur Squamous Epith Cells Urine Bacteria Ur Culture Indicated? Micro UA Comment Blood Type Antibody Screen 09/19/22 09/19/22 09/20/22 22:20 23:42 05:38 WBC 9.3 RBC 3.45 L Hgb 10.9 L Hct 31.7 L MCV 92.0 MCH 31.7 MCHC 34.5 RDW 13.2 Plt Count 232 Neut % (Auto) 85.5 H Lymph % (Auto) 8.2 L [place] % (Auto) 6.2 Eos % (Auto) 0.0 L Baso % (Auto) 0.1 Neut # (Auto) 7900 H Lymph # (Auto) 800 L [place] # (Auto) 600 Eos # (Auto) 0 Baso # (Auto) 0 PT INR Sodium Potassium Chloride Carbon Dioxide BUN Creatinine Estimated GFR BUN/Creatinine Ratio Glucose Calcium Magnesium Total Bilirubin AST ALT Alkaline Phosphatase Troponin I Total Protein Albumin Globulin Albumin/Globulin Ratio Triglycerides Cholesterol LDL Cholesterol, Calc HDL Cholesterol Lipase Procalcitonin 0.05 TSH Free T4 Urine Color Yellow Urine Appearance Clear Urine pH 5.0 Ur Specific [place] >=1.030 H Urine Protein Negative Urine Glucose (UA) Negative Urine Ketones 1+ H Urine Occult Blood Negative Urine Nitrate Negative Urine Bilirubin Negative Urine Urobilinogen 0.2 Ur Leukocyte Esterase Negative Urine RBC None seen Urine WBC None seen Ur Squamous Epith Cells None seen Urine Bacteria None seen Ur Culture Indicated? Cult not indicated Micro UA Comment Microscopic normal Blood Type Antibody Screen 09/20/22 09/20/22 09/20/22 05:38 05:38 05:38 WBC RBC Hgb Hct MCV MCH MCHC RDW Plt Count Neut % (Auto) Lymph % (Auto) [place] % (Auto) Eos % (Auto) Baso % (Auto) Neut # (Auto) Lymph # (Auto) [place] # (Auto) Eos # (Auto) Baso # (Auto) PT 12.6 INR 1.1 Sodium 136 L Potassium 4.0 Chloride 103 Carbon Dioxide 28 BUN 17 Creatinine 0.49 L Estimated GFR > 60 BUN/Creatinine Ratio 34.7 H Glucose 136 H Calcium 9.6 Magnesium Total Bilirubin AST ALT Alkaline Phosphatase Troponin I 0.128 H* Total Protein Albumin Globulin Albumin/Globulin Ratio Triglycerides Cholesterol LDL Cholesterol, Calc HDL Cholesterol Lipase Procalcitonin TSH Free T4 Urine Color Urine Appearance Urine pH Ur Specific [place] Urine Protein Urine Glucose (UA) Urine Ketones Urine Occult Blood Urine Nitrate Urine Bilirubin Urine Urobilinogen Ur Leukocyte Esterase Urine RBC Urine WBC Ur Squamous Epith Cells Urine Bacteria Ur Culture Indicated? Micro UA Comment Blood Type Antibody Screen 09/20/22 09/20/22 09/20/22 05:38 12:00 12:00 WBC RBC Hgb Hct MCV MCH MCHC RDW Plt Count Neut % (Auto) Lymph % (Auto) [place] % (Auto) Eos % (Auto) Baso % (Auto) Neut # (Auto) Lymph # (Auto) [place] # (Auto) Eos # (Auto) Baso # (Auto) PT INR Sodium Potassium Chloride Carbon Dioxide BUN Creatinine Estimated GFR BUN/Creatinine Ratio Glucose Calcium Magnesium 1.7 Total Bilirubin AST ALT Alkaline Phosphatase Troponin I 0.085 H Total Protein Albumin Globulin Albumin/Globulin Ratio Triglycerides 65 Cholesterol 172 LDL Cholesterol, Calc 99 HDL Cholesterol 60 Lipase Procalcitonin TSH Free T4 Urine Color Urine Appearance Urine pH Ur Specific [place] Urine Protein Urine Glucose (UA) Urine Ketones Urine Occult Blood Urine Nitrate Urine Bilirubin Urine Urobilinogen Ur Leukocyte Esterase Urine RBC Urine WBC Ur Squamous Epith Cells Urine Bacteria Ur Culture Indicated? Micro UA Comment Blood Type Antibody Screen Assessment & Plan Assessment & Plan narrative: Assessment: 81-year-old female with left subtrochanteric femur fracture Plan: Patient was seen preoperatively, we discussed her exam and imaging. Given the fracture displacement she is indicated for intramedullary nail of the left femur. Risks and benefits of surgery were discussed again including the ri sk of infection, damage to internal structures, bleeding, nerve injury, instability, need for revision surgery, blood clots, anesthesia and . No guarantees were made regarding outcomes. Patient expressed understanding and accepted these risks and wished to go forward with surgery and consent was signed. The left lower extremity was then marked with my initials.
[2022-09-20] MEDS: CEFAZOLIN 2 GM/100 ML PREMIX 100 ML IV (13:10)
--- NOTE | 2022-09-20 13:49 | SUR.OPER ---
Supine on padded [place] table with bilateral legs secured in padded positioning boots and suspended in positioning spars, operative leg in traction per surgeon. Head on one pillow. Arm on non-operative side secured on padded armboard <90 degrees abduction. Arm on operative side padded and resting across chest then secured with tape over sheet. Padded perineal post in place per surgeon.
[2022-09-20] MEDS: EPINEPHrine 1 MG/ML 0.15 MG IM (13:59)
[2022-09-20] MEDS: BUPIVACAINE 0.25% (PF) VIAL 30 ML INJ (14:00)
--- NOTE | 2022-09-20 14:00 | DI.RAD.S_ITS ---
PROCEDURE: XR FEMUR LT MIN 2V INDICATIONS: IM NAILING TECHNIQUE: 2 views of the femur were acquired. COMPARISON: None. FINDINGS: Fluoroscopic guidance utilized for a left hip ORIF, with trochanteric screw and intramedullary thomas fixation. IMPRESSION: Fluoroscopic guidance. Dictated by: Ethan Astorga M.D. on 09/20/2022 at 16:07 Approved by: Ethan Astorga M.D. on 09/20/2022 at 16:07
--- NOTE | 2022-09-20 14:08 | CM.DANOTE ---
Addendum entered by ALINA Sauer 09/20/22 15:28: ADD: [facility] [facility] medically ready for [facility] Original Note: Initial DCP Assessment Note Patient is an 81 yo female, resident of [place], used to navigating her home and life independently, fell taking her trash out, with subsequent femur fracture in need of repair Patient in the OR this afternoon w/Dr Wyman for hip repair PCP Denise Figueroa Payer [facility] [employer] able to meet w/patient and her daughter Kathy this morning at bedside. Had lengthy conversation Patient lives alone, completely indp and active. Patient has three adult children that live in the [place] area Reviewed inpatient status and it's implication on Medicare SNF benefit, reviewed [facility] benefit and then reviewed [facility] choice list for SNFs Patient would love to return home w/her family to assist but admits SNF will likely be a safer plan. Patient and daughter ask that [facility] [place] and [facility] [place] be contacted. Joie, admin assist, kindly agreed to send referrals Ally at [facility] accepts this patient for admission when she is medically stable PASRR completed in anticipation of SNF CM team following closely for coordination of DCP. Therapies pending once patient returns from the OR ALINA Morris Discharge Planning/Care Management CM Discharge Assessment Start: 09/20/22 14:04 Freq: Status: Active Protocol: Document 09/20/22 14:04 RAS (Rec: 09/20/22 14:08 RAS [id number]) Discharge Planning Assessment Assigned Electroplating Laborer ALINA Poe DPOA/Assigned Designee Name Kathy Erickson, daughter ( [place]) Contact Information [phone] Advance Directives? Yes Advance Directives on File No History Provided By Patient,Family Member,Medical Record Prior Living Arrangements House Household Members none Type of transporation used prior to Drives own vehicle admit Independent with ADL's Yes Is patient alert and oriented? Yes Patient/Family Preference [facility] Facility Barriers to Discharge Yes Comment Patient will likely need SNF to aid in her recovery, [facility] first choices Discharge Plan [facility] Facility Transportation Arrangement Likely w/c vs BLS depending on distance (?) Referrals Initiated Prison Medicare Choice List Provided Yes Medicare choice list reviewed on patient,family electronic tablet with SNF/HH Preference [facility] and [facility] Has Agency SNF been contacted Yes
--- NOTE | 2022-09-20 15:56 | P.OP_ITS ---
Operative Date/Time/Diagnoses Date of procedure: 09/20/22 Time of procedure: 15:56 Pre-op diagnosis: Left subtrochanteric femur fracture Post-op diagnosis: same Procedure & Clinicians Procedure: Intramedullary nail left femur Same procedure as scheduled: Yes Indications: Indications: This is a 81 year old female with the above diagnosis. We discussed that in order to facilitate mobilization early, as well as proper healing of the fracture, we recommend operative fixation using an intramedullary nail. The risks and benefits and alternatives to the procedure were discussed. The risks include bleeding, infection, damage to internal structures, failure of the implants, and future surgery as well as anesthesia. No guarantees were made regarding outcomes. Patient expressed understanding with these risks and wished to go forth with surgery. Surgeon: Gustabo Wyman Click Yes if Unassisted: Yes Anesthesia Type: General Operative Notes Findings: Operative findings: Subtrochanteric femur fracture, reducible with traction using leverage to the operating table. Closure Type: primary Specimen(s): none sent Prosthetic devices, grafts, tissues, transplants, or devices: Implants: [employer] MAYER nail, size 10 by 36 cm, 2 distal interlocking screws, 2 proximal cephalomedullary screws Estimated Blood Loss (mL): 25 Blood products transfused: none Procedure in detail: Details of operation: The patient's identity was verified. The hip was verified and site of surgery was marked. Prophylactic antibiotics were administered. The patient was taken to the operating room and anesthesia was established. Patient was positioned supine on the operating table. The feet were padded and placed into the traction boots. Anteversion of the contralateral hip was measured using fluoroscopy and was noted to be 25?. The injured hip was then placed in slight adduction and the uninjured hip extended about 30?. The fracture was reduced by applying longitudinal traction and internal rotation and a small amount of adduction. The lateral surface of the hip was sterilely prepped after which a vertical isolation drape was placed. The surgical team paused in the patient's identity, surgical procedure and surgical site were verified. A small incision was made proximal to the greater trochanter through the fascia to the tip of the trochanter could be palpated. A threaded guide pin was then inserted through the tip of the greater trochanter to the level of the lesser tuberosity. Once the wire was appropriately positioned the entry hole was drilled. The entry/channel Reamer was used to enter the cortex and reamed the metaphyseal portion of the canal. A finger motor home electrical foreman as well as a mallet and manual traction was used for reduction. Ball-tip guidewire was passed and the length of the nail was measured. The intramedullary nail was assembled on the insertion handle and the nail was inserted and its depth verified. We then turned our attention to the distal locking of the nail. First we lined up the condyles for a perfect lateral with the nail at perfect circles, thus giving us 12? of built-in anteversion in the nail, then internally rotated the knee 13?. The distal interlocking screws were then placed using perfect [place] technique. The nail was then backslapped to provide compression at the fracture site. Then obtaining a perfect lateral at the femoral neck in line with the implant, A small incision was made laterally over the distal vastus tubercle, through the fascia down to the bone and the targeting jig sleeve was advanced to the bone. Under fluoroscopic control, 2 drill bits were positioned through the lateral cortex of the femoral neck and into the center of the femoral head and measured, a step drill was used followed by placement of the screws thus obtaining 25? of anteversion. Final AP and lateral projections were taken confirming correct nail and screw placement. Our attention was then directed distally to the interlocking of the nail. An incision was made and the guide was used to place the sleeve down to the bone. The bone was then drilled and measured and interlocking screw was placed. The wounds were copiously irrigated. The subcutaneous area was closed with interrupted 2-0 Vicryl. The wound was then infiltrated with 0.5% marcaine with epinephrine. The skin was then closed with juli after which a sterile dressing was applied. Patient was subsequently transferred from the [facility] to the hospital bed. Disposition: The patient was taken to the recovery room in stable condition having tolerated the procedure without difficulty. Complications: none Post-operative Condition: stable Disposition: PACU Plan for aftercare: Postoperative plan: Weightbearing as tolerated with crutches or walker for 4 weeks. After 4 weeks it is okay to ambulate without assistance if stable and strong enough. DVT prophylaxis for 4 weeks (default aspirin 81 mg b.i.d., is unable to take aspirin, and then Lovenox, 40 mg subcutaneous daily). Okay to change dressings to clean dry dressings after 3 days. Okay for dressings to come off completely at 7 days. Okay for warm soap and water to run over the incision and a shower or sponge bath, however no soaking the wound. Follow-up in 2 weeks for staple removal, and follow-up in [address] Wyman with x- rays on arrival
--- NOTE | 2022-09-20 16:04 | SUR.PHASEI ---
denies pain, resting comfortably. taking water. no n/v. Ice pack to hip area.
--- NOTE | 2022-09-20 16:24 | PC.NURSE ---
Patient left for surgery at approximately 1215 this afternoon. She returns from PACU at 1630 A&OX4. VSS, afebrile on RA. X3 incisions to L hip, guaze and tegaderm c/d/i. Pt reports moderate pain level 4/10. Daughter at bedside supportive. She denies n/v, and is tolerating po intake well. Elkins catheter in place draining adequate clear, yellow, urine. Hospitalist at bedside this evening discussing plan for patient to have CT chest, echo in a.m. Discussing plan of new meds with new onset Afib. Patient and daughter acknowledge understanding and agreement. SCD's on. IV saline locked. Call light in place. Continuous monitoring.
[2022-09-20] MEDS: OXYCODONE IR 5 MG TABLET PO (16:43)
--- NOTE | 2022-09-20 16:53 | PM.PN.1 ---
Subjective Subjective Date Patient Seen: 09/20/22 Interval history: 81-year-old female ex-smoker with history of hypertension, dyslipidemia on metoprolol, atorvastatin and lisinopril presented to ED after GLF. Pt had left femur ORIF today. Postop she is feeling fine, denies leg pain, denies CP/palps. Noted to be in afib on admission but back in SR pre-op and post-op. Pt states she was first told she had afib back in May of this year when saw her PCP for routine visit. She was seen by cardiology and ECHO recommended but for some reason cardiology office did not f/u with scheduling (per pt/dtr). Pt had elevated troponin without CP decreasing trop pre-op. Pt noted to left hilar opacities on CXR. She smoked for 1+ ppd for 40 years and quit 10 years ago. Denies cough, fever. Exam Vital Signs (past 8 hours): - 09/20/22 09:34 09/20/22 12:25 09/20/22 12:00 Temperature 98 F Pulse Rate 77 77 77 Respiratory Rate 16 Blood Pressure 107/52 L 142/77 H 144/77 H Pulse Oximetry 98 Oxygen Delivery Method Room Air 09/20/22 15:55 09/20/22 15:54 09/20/22 16:00 Temperature 97.6 F Pulse Rate 75 74 69 Respiratory Rate 15 12 15 Blood Pressure 96/68 100/55 L 101/61 Pulse Oximetry 96 95 91 Oxygen Delivery Method Room Air Room Air Room Air 09/20/22 16:05 09/20/22 16:10 09/20/22 16:18 Temperature 97.6 F Pulse Rate 80 76 74 Respiratory Rate 16 16 15 Blood Pressure 106/57 L 106/57 L 125/74 Pulse Oximetry 92 94 96 Oxygen Delivery Method Room Air Room Air Oxygen Delivery Method Room Air Oxygen Flow Rate 0 Narrative Exam Narrative: Gen: alert, NAD Lungs: clear CV: regular Ext: left hip dressing clean and dry, no distal edema Neuro: mentation intact, nl affect and speech Objective Labs 09/20/22 05:38 09/20/22 05:38 Labs: Laboratory Results - last 24 hr 09/19/22 09/19/22 09/19/22 22:20 22:20 22:20 WBC 12.0 H RBC 3.48 L Hgb 10.8 L Hct 31.9 L MCV 91.7 MCH 31.0 MCHC 33.8 RDW 13.3 Plt Count 236 Neut % (Auto) 84.0 H Lymph % (Auto) 8.2 L [place] % (Auto) 6.9 Eos % (Auto) 0.4 L Baso % (Auto) 0.5 Neut # (Auto) 86555 H Lymph # (Auto) 1000 L [place] # (Auto) 800 Eos # (Auto) 0 Baso # (Auto) 100 PT INR Sodium 137 Potassium 3.7 Chloride 105 Carbon Dioxide 25 BUN 18 H Creatinine 0.50 L Estimated GFR > 60 BUN/Creatinine Ratio 36.0 H Glucose 128 H Calcium 9.0 Magnesium Total Bilirubin 0.5 AST 32 ALT 17 Alkaline Phosphatase 115 Troponin I Total Protein 6.6 Albumin 3.6 Globulin 3.0 Albumin/Globulin Ratio 1.2 Triglycerides Cholesterol LDL Cholesterol, Calc HDL Cholesterol Lipase 114 Procalcitonin TSH Free T4 Urine Color Urine Appearance Urine pH Ur Specific [place] Urine Protein Urine Glucose (UA) Urine Ketones Urine Occult Blood Urine Nitrate Urine Bilirubin Urine Urobilinogen Ur Leukocyte Esterase Urine RBC Urine WBC Ur Squamous Epith Cells Urine Bacteria Ur Culture Indicated? Micro UA Comment Blood Type O Negative Antibody Screen Negative 09/19/22 09/19/22 09/19/22 22:20 22:20 22:20 WBC RBC Hgb Hct MCV MCH MCHC RDW Plt Count Neut % (Auto) Lymph % (Auto) [place] % (Auto) Eos % (Auto) Baso % (Auto) Neut # (Auto) Lymph # (Auto) [place] # (Auto) Eos # (Auto) Baso # (Auto) PT INR Sodium Potassium Chloride Carbon Dioxide BUN Creatinine Estimated GFR BUN/Creatinine Ratio Glucose Calcium Magnesium 1.2 L Total Bilirubin AST ALT Alkaline Phosphatase Troponin I 0.025 Total Protein Albumin Globulin Albumin/Globulin Ratio Triglycerides Cholesterol LDL Cholesterol, Calc HDL Cholesterol Lipase Procalcitonin TSH 2.09 Free T4 1.18 Urine Color Urine Appearance Urine pH Ur Specific [place] Urine Protein Urine Glucose (UA) Urine Ketones Urine Occult Blood Urine Nitrate Urine Bilirubin Urine Urobilinogen Ur Leukocyte Esterase Urine RBC Urine WBC Ur Squamous Epith Cells Urine Bacteria Ur Culture Indicated? Micro UA Comment Blood Type Antibody Screen 09/19/22 09/19/22 09/20/22 22:20 23:42 05:38 WBC 9.3 RBC 3.45 L Hgb 10.9 L Hct 31.7 L MCV 92.0 MCH 31.7 MCHC 34.5 RDW 13.2 Plt Count 232 Neut % (Auto) 85.5 H Lymph % (Auto) 8.2 L [place] % (Auto) 6.2 Eos % (Auto) 0.0 L Baso % (Auto) 0.1 Neut # (Auto) 7900 H Lymph # (Auto) 800 L [place] # (Auto) 600 Eos # (Auto) 0 Baso # (Auto) 0 PT INR Sodium Potassium Chloride Carbon Dioxide BUN Creatinine Estimated GFR BUN/Creatinine Ratio Glucose Calcium Magnesium Total Bilirubin AST ALT Alkaline Phosphatase Troponin I Total Protein Albumin Globulin Albumin/Globulin Ratio Triglycerides Cholesterol LDL Cholesterol, Calc HDL Cholesterol Lipase Procalcitonin 0.05 TSH Free T4 Urine Color Yellow Urine Appearance Clear Urine pH 5.0 Ur Specific [place] >=1.030 H Urine Protein Negative Urine Glucose (UA) Negative Urine Ketones 1+ H Urine Occult Blood Negative Urine Nitrate Negative Urine Bilirubin Negative Urine Urobilinogen 0.2 Ur Leukocyte Esterase Negative Urine RBC None seen Urine WBC None seen Ur Squamous Epith Cells None seen Urine Bacteria None seen Ur Culture Indicated? Cult not indicated Micro UA Comment Microscopic normal Blood Type Antibody Screen 09/20/22 09/20/22 09/20/22 05:38 05:38 05:38 WBC RBC Hgb Hct MCV MCH MCHC RDW Plt Count Neut % (Auto) Lymph % (Auto) [place] % (Auto) Eos % (Auto) Baso % (Auto) Neut # (Auto) Lymph # (Auto) [place] # (Auto) Eos # (Auto) Baso # (Auto) PT 12.6 INR 1.1 Sodium 136 L Potassium 4.0 Chloride 103 Carbon Dioxide 28 BUN 17 Creatinine 0.49 L Estimated GFR > 60 BUN/Creatinine Ratio 34.7 H Glucose 136 H Calcium 9.6 Magnesium Total Bilirubin AST ALT Alkaline Phosphatase Troponin I 0.128 H* Total Protein Albumin Globulin Albumin/Globulin Ratio Triglycerides Cholesterol LDL Cholesterol, Calc HDL Cholesterol Lipase Procalcitonin TSH Free T4 Urine Color Urine Appearance Urine pH Ur Specific [place] Urine Protein Urine Glucose (UA) Urine Ketones Urine Occult Blood Urine Nitrate Urine Bilirubin Urine Urobilinogen Ur Leukocyte Esterase Urine RBC Urine WBC Ur Squamous Epith Cells Urine Bacteria Ur Culture Indicated? Micro UA Comment Blood Type Antibody Screen 09/20/22 09/20/22 09/20/22 05:38 12:00 12:00 WBC RBC Hgb Hct MCV MCH MCHC RDW Plt Count Neut % (Auto) Lymph % (Auto) [place] % (Auto) Eos % (Auto) Baso % (Auto) Neut # (Auto) Lymph # (Auto) [place] # (Auto) Eos # (Auto) Baso # (Auto) PT INR Sodium Potassium Chloride Carbon Dioxide BUN Creatinine Estimated GFR BUN/Creatinine Ratio Glucose Calcium Magnesium 1.7 Total Bilirubin AST ALT Alkaline Phosphatase Troponin I 0.085 H Total Protein Albumin Globulin Albumin/Globulin Ratio Triglycerides 65 Cholesterol 172 LDL Cholesterol, Calc 99 HDL Cholesterol 60 Lipase Procalcitonin TSH Free T4 Urine Color Urine Appearance Urine pH Ur Specific [place] Urine Protein Urine Glucose (UA) Urine Ketones Urine Occult Blood Urine Nitrate Urine Bilirubin Urine Urobilinogen Ur Leukocyte Esterase Urine RBC Urine WBC Ur Squamous Epith Cells Urine Bacteria Ur Culture Indicated? Micro UA Comment Blood Type Antibody Screen [facility] Medical History Dyslipidemia Essential hypertension History of bladder cancer Surgical History History of appendectomy Family History Father CVA (cerebral vascular accident) Mother Diabetes mellitus Social History marital status: household members: none lives independently: Yes (In [facility] community) caregiver/support person: No Smoking Status: Former smoker Tobacco: How many years used: 40 alcohol intake: current substance use type: does not use additional social history: Daughter lives in [place]. Assessment & Plan Assessment & Plan narrative: 1. 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, closed, acute, present on admission -s/p ORIF 09/19/22 -routine postop pain mgmt, PT -SNF rehab vs home 2. Paroxysmal atrial fibrillation -recent outpatient diagnosis but has not had w/u -ECHO ordered for 09/21 -telemetry -agrees to start Eliquis 5 mg bid -already rate controlled on her metoprolol 3.Hypertensive urgency in ED, resolved -initial BP 201/102 in setting of acute pain -cont routine home meds lisinopril, metoprolol and atorvastatin 4. Elevated troponin -acute mycardial strain secondary to elev BP, pain/stress from fall -trop peaked and declining -ECHO ordered 5. Left hilar mass -concerning for malignancy in ex-smoker -chest CT with contrast ordered for 09/21 6. Anemia unknown chronicity -poss chronic dz or malignancy -check B12, iron studies DVT prevention: started on Eliquis
[2022-09-20 16:58] LABS: NT-proBNP (BNP-Adult 18+) 991 pg/mL (<450)
--- NOTE | 2022-09-20 17:17 | DI.ECHO.S_ITS ---
[facility] +---------+ Hospital +---------+ : : [address] : : : : [id number] : : : : Phone: [phone]+ Echocardiogram Report + + :Name: EL RIBERA Study Date: 09/21/2022 Height: 64 in : :[facility] ReadingLocation: Weight: 150 lb : : Gender: Female BSA: 1.7 m2 : :: 1940 Age: 81 yrs BP: 132/69 mmHg: :Reason For Study: ATRIAL FIBRILLATION : :Ordering Physician: JOSE, : :KAMARI Performed By: Lorri White : :Referring: KAMARI GARCIA : + + Interpretation Summary The patient had occasional PACs during the exam. The left ventricular cavity is small. The ejection fraction is estimated to be 55-60%. There is a mild dyssynchronous contraction pattern, consistent with a conduction abnormality. The right ventricle is normal in size and function. No significant valvular pathology seen. Mild atherosclerotic plaque(s) in the aortic arch. Procedure: A two-dimensional transthoracic echocardiogram with color flow and Doppler was performed. The study quality was technically adequate. There is no prior echocardiogram noted for this patient. The heart rate ranged between 59-63 bpm during the study. The patient was in normal sinus rhythm during the exam. The patient had occasional PACs during the exam. The patient had a bundle branch block rhythm during the exam. Left Ventricle: The left ventricular cavity is small. Proximal septal thickening is noted. There is no echo evidence for significant left ventricular outflow tract obstruction. There is no thrombus. The ejection fraction is estimated to be 55-60%. There is a mild dyssynchronous contraction pattern, consistent with a conduction abnormality. Diastolic parameters suggest a relaxation abnormality of the left ventricle, consistent with probable normal filling pressures. Right Ventricle: The right ventricle is normal in size and function. Atria: The left atrial size is normal. The right atrium is borderline dilated. There is no Doppler evidence for an interatrial shunt. Mitral Valve: There is mild mitral annular calcification. There is no mitral regurgitation noted. Aortic Valve: The aortic valve is trileaflet. The aortic valve opens well. The aortic valve is slightly calcified. There is no aortic valve stenosis. No aortic regurgitation is present. Tricuspid Valve: The tricuspid valve is normal in structure and function. There is trace tricuspid regurgitation. Pulmonary artery pressures cannot be estimated because of the lack of a measurable TR jet velocity. Pulmonic Valve: The pulmonic valve is not well seen, but is grossly normal. There is no pulmonic valvular regurgitation. Great Vessels: The aortic root is normal size. The dimensions of the ascending aorta are normal. Mild atherosclerotic plaque(s) in the aortic arch. The IVC is of normal diameter and collapses greater than 50% with a sniff. This suggests a low right atrial pressure of 3 mm Hg. Pericardium/ Pleura There is no pericardial effusion. There is an anterior echo-free space consistent with a fat pad. There is a small loculated pericardial effusion. There are no echocardiographic indications of cardiac tamponade. There is no pleural effusion. MMode/2D Measurements & Calculations LVIDd: 3.9 cm LVOT diam: 2.0 cm LVIDs: 2.8 cm Ao root diam: 3.2 cm FS: 28.8 % asc Aorta Diam: 3.5 cm IVSd: 1.1 cm Ao Arch Diam (Prox Trans): 2.6 cm LVPWd: 0.87 cm LV harmon. diameter/BSA (cm/m^2): 2.3 LV sys. diameter/BSA (cm/m^2): 1.6 LA A2 area: 19.8 cm2 RA long axis: 5.0 cm LA A4 area: 14.2 cm2 RA area: 18.6 cm2 LA length (vol): 5.3 cm RA vol: 59.4 ml LA vol: 44.8 ml RA : 34.3 ml/m2 LA vol index: 25.9 ml/m2 IVC diam: 1.7 cm RVD1 (basal): 3.7 cm TAPSE: 2.4 cm Doppler Measurements & Calculations Ao V2 max: 156.4 cm/sec LVOT Max Abimael: 133.4 cm/sec Ao V2 mean: 108.2 cm/sec LV V1 max P.1 mmHg Ao max P.8 mmHg LV V1 VTI: 23.8 cm Ao mean P.3 mmHg MARIBEL(I,D): 2.5 cm2 Ao V2 VTI: 28.5 cm MARIBEL(V,D): 2.6 cm2 sev ratio: 0.84 MARIBEL indexed to BSA (cm^2/m^2): 1.4 MV E max abimael: 69.3 cm/sec PA V2 max: 83.6 cm/sec MV A max abimael: 92.5 cm/sec PA V2 mean: 61.5 cm/sec MV E/A: 0.75 PA mean P.6 mmHg Med Peak E' Abimael: 7.3 cm/sec E/E' med: 9.5 Lat Peak E' Abimael: 4.8 cm/sec E/E' lat: 14.5 E/e' average: 12.0 MV dec time: 0.27 sec SV(LVOT): 71.3 ml Reading Physician:01:03 PM
[2022-09-20] MEDS: DOCUSATE 100 MG CAPSULE PO (21:08)
[2022-09-20] MEDS: CALCIUM CARBONATE 500 MG TAB PO (21:08)
[2022-09-20] MEDS: SENNOSIDES 8.6 MG TABLET 17.2 MG PO (21:08)
[2022-09-20] MEDS: CEFAZOLIN VIAL 1 GM in SODIUM CHLORIDE 0.9% 100 ML IV (22:09)
[2022-09-20] MEDS: SODIUM CHLORIDE 0.9% FLUSH 10 ML IV (22:10)
[2022-09-21] VITALS (11 sets, daily range): BP systolic 94–132; BP diastolic 44–69; PULSE 59–77; RESP 16–18; TEMP 36.4–36.9; O2SAT 91–98
--- NOTE | 2022-09-21 01:23 | PC.NURSE ---
Addendum entered by Mayela Bourne R.N. 09/21/22 03:52: Found with telemetry completely removed and catheter strapped off. Patient trying to pull catheter out. Initially thought she was in [place]. Reoriented. Telemetry replaced as well as catheter strap. VSS. Denies pain. Original Note: Patient is alert and oriented. Breath sounds CTA with RA sat of 92%; on continuous oximetry. HR irregular and telemetry reading is afib CVR. Denies nausea. BT present but denies passing flatus as yet. Indwelling catheter is patent; urine is clear, alondra. Is able to move herself in bed. Gait not assessed as has not yet been out of bed since only returned from surgery around 1600. Dressings x 3 to lateral left leg/hip all CDI. Allevyn dressings to right LE CDI. Abrasion noted on left knee. Wearing bilateral calf SCD's. Denies pain. Fall risk score is high and bed alarm is activated.
[2022-09-21] MEDS: CEFAZOLIN VIAL 1 GM in SODIUM CHLORIDE 0.9% 100 ML IV (05:40)
[2022-09-21] MEDS: SODIUM CHLORIDE 0.9% FLUSH 10 ML IV ×2 (05:40→09:01)
[2022-09-21 06:53] LABS: Hematocrit 29.3 % (36-46); Mean Corpuscular HGB Conc 34.2 % (30-36); Mean Corpuscular Hemoglobin 31.6 PG (26-34); Mean Corpuscular Volume 92.5 fL (80-100); Platelet Count 259 X10^3/uL (150-400); Red Blood Cell Count 3.17 X10^6/uL (4.0-5.2); Red Cell Distribution Width 13.3 % (11.6-14.8)
[2022-09-21 06:55] LABS: HEMOLYSIS < 15 (0-50)
[2022-09-21 07:01] LABS: Magnesium 1.6 mg/dL (1.6-2.3)
[2022-09-21 07:04] LABS: BUN Creatinine Ratio 19.2 (6-22); Blood Urea Nitrogen 10 mg/dL (7-17); Calcium 9.5 mg/dL (8.4-10.2); Carbon Dioxide 31 mmol/L (22-32); Chloride 101 mmol/L (98-107); Estimated Glomerular Filt Rate > 60 mL/min (>60); Glucose 136 mg/dL (80-110); HEMOLYSIS < 15 (0-50); Iron 21 ug/dL (37-170); Potassium 4.4 mmol/L (3.4-5.1); Sodium 137 mmol/L (137-145)
[2022-09-21 07:15] LABS: Percent Iron Saturation 7 % (15-50); Total Iron Binding Capacity 299 ug/dL (265-497); Transferrin 209 mg/dL (206-381)
[2022-09-21 07:36] LABS: Ferritin 107 ng/mL (11-264)
--- NOTE | 2022-09-21 08:00 | DI.CT.S_ITS ---
PROCEDURE: CT CHEST W CON INDICATIONS: lt hilar mass, ex-smoker TECHNIQUE: After the administration of intravenous contrast, 5 mm thick sections acquired from the pulmonary apices to the posterior costophrenic angles. 1 mm axial lung, 5 mm thick coronal and sagittal reformats and 7 mm axial MIP were acquired. For radiation dose reduction, the following was used: automated exposure control, adjustment of mA and/or kV according to patient size. COMPARISON: [facility], CR, XR CHEST 1V, 09/19/2022, 22:13. FINDINGS: Image quality: Excellent. Lungs and pleura: Left hilar mass measures approximately 6.3 x 4.5 cm (29/2). A few internal calcifications are present. The lesion predominantly involves the left upper lobe with nodular thickening extending along the adjacent pleura as well as invasion of the left mediastinum. Lesion abuts the pericardium without definite invasion. There is obstruction of the left upper lobe bronchus and mass effect on the left lower lobe bronchus. Mass effect is seen on the left upper lobe pulmonary vein without obstruction. The course of the left upper lobe and lingular pulmonary arteries is poorly visualized. Nonspecific tree-in-bud nodularity is seen within the left upper lobe. A 0.8 x 0.7 cm solid nodule is seen in the anterior left upper lobe (109/3). There is a 0 point 7 cm subpleural nodule in the right upper lobe medially (83/3) and a 0.8 cm nodule in the right upper lobe laterally (109/3). A few nodules are seen in the right lower lobe, the largest of which is a 1.1 cm nodule at the right lung base (235/3). Small left and trace right pleural effusions are present. Mediastinum: Bulky conglomerated left prevascular nghia mass is seen. A patient care representative section measures 3.7 x 4.9 cm (24/2). And upper mediastinal pretracheal lymph node measures 1.1 cm in short axis (17/2). Heart size is moderately enlarged. Small amount of nonspecific pericardial fluid. Mild coronary artery calcifications. Thoracic aorta and central pulmonary arteries are normal in size. Esophagus is normal in caliber. No hiatal hernia. Bones and chest wall: A left supraclavicular lymph node measures 1.6 cm in short axis diameter (8/2). Nonspecific calcification is seen projecting into the thecal canal at the T7 level on the right, which is most likely benign but may be calcium mass effect. No gross of osseous lesion is seen. No vertebral body compression fractures. Thyroid is unremarkable. Abdomen: Multiple hypoattenuating lesions are seen in the liver, the largest in the superior right hepatic lobe measures 6.2 x 5.5 cm (50/2). IMPRESSION: 1. Left upper lobe perihilar mass is seen measuring 6.3 x 4.5 cm, which extends into the left hilum and abuts the pericardium. There is probable extension along the left major fissure. The mass obstructs the left upper lobe bronchus and narrows the left lower lobe bronchus with possible involvement of the left upper lobe and lingular pulmonary arteries. 2. Bulky mediastinal lymph nodes and a left supraclavicular lymph node are consistent with nghia metastatic disease. 3. Additional bilateral round pulmonary nodules are suspicious for pulmonary metastatic disease. Small bilateral pleural effusions may be malignant. 4. Small pericardial effusion is nonspecific, but malignant involvement is not excluded. 5. Multiple hypoattenuating hepatic masses are highly suspicious for hepatic metastatic disease. Approved by: Brannon Boswell M.D. on 09/21/2022 at 7:57
--- NOTE | 2022-09-21 08:03 | PM.PN.1 ---
Subjective Subjective Interval history: Patient feeling pretty good today, and able to walk around room without much pain. HR elevated at 110's, EKG ordered. BP soft at 90/52 so given 500cc bolus. Daughter in law at bedside. Exam Vital Signs (past 8 hours): - 09/21/22 00:26 09/21/22 03:51 Temperature 97.8 F 98.4 F Pulse Rate 66 77 Respiratory Rate 18 16 Blood Pressure 103/59 L 132/69 Pulse Oximetry 91 95 Oxygen Flow Rate 0 0 Oxygen Delivery Method Room Air Oxygen Flow Rate 0 Narrative Exam Narrative: Gen: alert, NAD Lungs: clear CV: regular Ext: left hip dressing clean and dry, no distal edema Neuro: mentation intact, nl affect and speech Objective Labs 09/21/22 06:25 09/21/22 06:25 Labs: Laboratory Results - last 24 hr 09/20/22 09/20/22 09/20/22 12:00 12:00 12:00 WBC RBC Hgb Hct MCV MCH MCHC RDW Plt Count Sodium Potassium Chloride Carbon Dioxide BUN Creatinine Estimated GFR BUN/Creatinine Ratio Glucose Calcium Magnesium 1.7 Iron TIBC % Saturation Transferrin Ferritin Troponin I 0.085 H NT-Pro-B Natriuret Pep 991 H 09/21/22 09/21/22 09/21/22 06:25 06:25 06:25 WBC RBC Hgb Hct MCV MCH MCHC RDW Plt Count Sodium 137 Potassium 4.4 Chloride 101 Carbon Dioxide 31 BUN 10 Creatinine 0.52 Estimated GFR > 60 BUN/Creatinine Ratio 19.2 Glucose 136 H Calcium 9.5 Magnesium 1.6 Iron 21 L TIBC 299 % Saturation 7 L Transferrin 209 Ferritin 107 Troponin I NT-Pro-B Natriuret Pep 09/21/22 06:25 WBC 9.0 RBC 3.17 L Hgb 10.0 L Hct 29.3 L MCV 92.5 MCH 31.6 MCHC 34.2 RDW 13.3 Plt Count 259 Sodium Potassium Chloride Carbon Dioxide BUN Creatinine Estimated GFR BUN/Creatinine Ratio Glucose Calcium Magnesium Iron TIBC % Saturation Transferrin Ferritin Troponin I NT-Pro-B Natriuret Pep [facility] Medical History Dyslipidemia Essential hypertension History of bladder cancer Surgical History History of appendectomy Family History Father CVA (cerebral vascular accident) Mother Diabetes mellitus Social History marital status: household members: none lives independently: Yes (In jail community) caregiver/support person: No Smoking Status: Former smoker Tobacco: How many years used: 40 alcohol intake: current substance use type: does not use additional social history: Daughter lives in [place]. 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, closed, acute, present on admission -s/p ORIF 09/19/22 -routine postop pain mgmt, PT -SNF rehab vs home # Paroxysmal atrial fibrillation -recent outpatient diagnosis but has not had w/u -ECHO shows EF 55-60%, mild dyssynchronous contraction pattern, no valvular pathology -telemetry -agrees to start Eliquis 5 mg bid -rate elevated into 110's, obtaining EKG -holding metoprolol for now due to hypotension # Probable lung cancer, incidentally found -possible left hilar mass intially seen on CXR, concerning for malignancy in ex-smoker -chest CT with contrast ordered for 09/21 and shows likely lung cancer with metastasis to liver -awaiting family to be present to deliver the news # Hypertensive urgency in ED, resolved, now with hypotension -initial BP 201/102 in setting of acute pain in ED -BP on 09/21 dipped to 90s/50s -held home meds lisinopril, metoprolol -give 500cc bolus # Elevated troponin -secondary to demand ischemia from elevated blood pressure, pain/stress from fall -trop peaked and declining -echo as above # Iron deficiency anemia -iron studies show normal ferritin but low transferrin sat at 7% -B12 pending -will give dose of IV iron and should dc on po iron supplementation # HLD -continue statin DVT prevention: started on Eliquis Dispo: SNF in 1-2 days.
[2022-09-21] MEDS: lisinopriL 20 MG TABLET PO (08:55)
[2022-09-21] MEDS: APIXABAN 5 MG TABLET PO ×2 (08:55→21:06)
[2022-09-21] MEDS: DOCUSATE 100 MG CAPSULE PO ×2 (08:55→21:06)
[2022-09-21] MEDS: METOPROLOL ER 50 MG TABLET PO (08:58)
[2022-09-21] MEDS: ACETAMINOPHEN 325 MG TABLET 650 MG PO ×2 (08:59→17:30)
[2022-09-21] MEDS: CHOLECALCIFEROL (VITAMIN D3) 1,000 UNIT TABLET 2000 UNIT PO (09:00)
[2022-09-21] MEDS: polyethylene glycoL 3350 17 GM POWD.PACK PO (09:00)
[2022-09-21] MEDS: OXYCODONE IR 5 MG TABLET PO ×4 (09:00→22:04)
[2022-09-21] MEDS: MAGNESIUM CHLORIDE 64 MG TABLET 128 MG PO (09:02)
--- NOTE | 2022-09-21 09:38 | CM.DPC ---
Addendum entered by ALINA Domínguez 09/21/22 12:20: DCP Continued: TECHNOLOGY DEVELOPMENT INTERN spoke with Madeleine at [facility] ([phone]) to let her know that [facility] is patient's preference and it is possible for d/c tomorrow, 6.10. Waiting on PT/OT recommendation for transportation. Madeleine said they could accept patient tomorrow. TECHNOLOGY DEVELOPMENT INTERN told Madeleine she'd likely be working with [facility] tomorrow for d/c planning logistics. Per Madeleine, they can accept on Friday but CM team will need to set up transport via [facility] and [facility] will cover cost. Or will transport with private vehicle. Plan: potential d/c tomorrow pending if patient is medically stable to [facility]. Transport pending PT/OT recommendation. CM team will continue to follow closely. TRACY Original Note: DCP Continued: TECHNOLOGY DEVELOPMENT INTERN team reviewed EMR. TECHNOLOGY DEVELOPMENT INTERN teamed entered room and introduced selves and roles. Patient accompanied by daughter Kathy ([phone]) and DHEERAJ White ([phone]), who is also an RN. Patient appeared A/Ox4, and was sitting up watching TV eating breakfast. Patient and family reported their preference is [facility] for SNF. Patient's daughter Kathy had some concerns for transport. ALINA Dean informed patient and family that transportation will follow PT/OT recommendation. Kathy requested that upon d/c she be notified. Kathy stopped TECHNOLOGY DEVELOPMENT INTERN team in [place] to reported that patient's baseline cognitive level is a tad confused. ALINA Jeffers called Madeleine at [facility] and [facility] with update. CM team will continue to attempt to get ahold of her to update her on patient's preference. From rounds, provider reported lung tumor and potential cancerous cells in liver. Provider will inform family and patient. Plan: Either tomorrow or Friday transport to [facility]. CM team will get ahold of Madeleine at [facility]. PASRR already complete. CM team or facility will arrange transportation pending PT/OT recommendation. ALINA Domínguez
--- NOTE | 2022-09-21 10:30 | PT.IIE ---
Current Diagnoses Unspecified fracture of left femur, initial encounter for closed fracture (09/19/22) Surgery Performed Operation Date: 09/20/22 13:15 Actual Procedures p Intramedullary Nailing Femur - Gustabo Wyman MD Surgical History (Last Reviewed 09/21/22 @ 10:33 by Leroy Ybarra PA-C) History of appendectomy Medical History (Last Reviewed 09/21/22 @ 10:33 by Leroy Ybarra PA-C) Dyslipidemia Essential hypertension History of bladder cancer Physical Therapy Inpatient Evaluation/Re-Eval M1 PT/OT-IP Prior Functional Status Start: 09/21/22 12:11 Freq: NEEDED Status: Active Protocol: Document 09/21/22 10:30 AB (Rec: 09/21/22 12:23 AB [id number]) Medical Review Prior Functional Status Medical History Reviewed Yes Communication able to make needs known Mobility and Gait pt stated that she is modified independent with all mobilities and ambulation using a tripod cane but only started using SPC ~ 6 weeks ago due to L hip pain Social History Household Members none Living Arrangements House Number of Floors (Floors) One Floor Number of Stairs To Enter/Railing? 1 step to enter Home Environment Walk in Shower,Built-In Shower Seat Home Equipment Front Wheel Walker,Quad Cane, Straight Cane,Hand Held Shower ,Grab Bars Near Toilet,Grab Bars In Shower M2 PT-IP Current Condition Start: 09/21/22 12:11 Freq: NEEDED Status: Active Protocol: Document 09/21/22 10:30 AB (Rec: 09/21/22 12:23 AB [email or web address]) Physical Therapy Current Condition Current Condition Evaluation Date 09/21/22 Treatment Diagnosis GLF; L femur fx s/p IM nailing ; difficulty in walking Onset Date 09/19/22 M3 PT-IP Subjective Start: 09/21/22 12:11 Freq: NEEDED Status: Active Protocol: Document 09/21/22 10:30 AB (Rec: 09/21/22 12:23 AB [email or web address]) Subjective Physical Therapy Visit Type Type Initial Evaluation Visit Start Time 10:30 Visit Stop Time 11:53 Total Visit Minutes 35 Notes pt seen for split visits due to ECHO procedure: seen 1030 am to 1040 am and 1128 am to 1153am. Number of DIVINE HEALER Visits 0 Physical Therapy Visit Comments Patient Comments agreeable to do PT Therapy Pain Assessment Pain When Pain Assessed During Mobility Pain Present Pain Present Pain Reported Location Left Hip Intensity 5 Scale Used Numeric (0 - 10) Pain Management Techniques Apply Cold,Distraction, Modification of Treatment,Re- positioning,Timing of Activity with Medications M4 PT-IP Mobility and Gait Start: 09/21/22 12:11 Freq: NEEDED Status: Active Protocol: Document 09/21/22 10:30 AB (Rec: 09/21/22 12:23 AB [email or web address]) PT-Bed Mobility Assessment Supine to Sit Supine to Sit Standby Assistance,1 Person Assistance,Bedrails Scooting Scooting to Edge of Bed Minimal Assistance PT-Transfer Assessment Sit to and From Stand Sit to and from Stand Moderate Assistance,Maximum Assistance,1 Person Assistance ,Use of Upper Extremities Equipment Transfer Assistive Device Gait Belt,Front Wheeled Walker Orthotic/Prosthetic Devices or Brace: No Transfers Transfer Destination Chair Transfer Technique ambulated Transfer Ability Level of Assist Moderate Assistance,Maximum Assistance,1 Person Assistance ,Use of Upper Extremities Comments Mobility Comments daughter in room with pt. pt agreed to do PT. completed supine to sit SBA with cues. pt requires increase time to complete task . able to sit on EOB SBA. min A for scooting to EOB. completed sit to stand x 2 attempts mod to max A and max cues. pt can be impulsive. required initial mod A to stand but required max A to get to upright position. pt with retroleaning and posterior legs leaning against the bed. cued to correct requiring max A for positioning and standing balance. ambulated towards the chair using FWW mod to max A and max cues for techniques and for L quads activation. pt agreed to sit on the chair and positioned for lunch. call light and table placed within reach. Gait Assessment Gait Gait Assistance Required: Moderate Assistance,Maximum Assistance Distance (Feet) 12 Able to Maintain Weight Bearing Status Yes During Gait Assistive Devices Assistive Device Gait Belt,Front Wheeled Walker Orthotic/Prosthetic Devices or Brace: No Gait Deviations General Gait Pattern Antalgic,Decreased Stride Length,Decreased Feet Clearance,Step-to Gait Factors Limiting Gait Function Factors Limiting Gait Function Limited Range of Motion,Pain, Poor Balance,Poor Safety Awareness PT-Balance Assessment Sitting Balance and Reactions Static Sitting Balance Ability Good Dynamic Sitting Balance Ability Good Standing Balance and Reactions Static Standing Balance Ability Poor Dynamic Standing Balance Ability Poor Device Used FWW M5 PT-IP Objective Assessments Start: 09/21/22 12:11 Freq: NEEDED Status: Active Protocol: Document 09/21/22 10:30 AB (Rec: 09/21/22 12:23 AB [id number]) Orientation Orientation/Cognition Level of Alertness Alert Orientation Name,Place,Situation Language Function Ability No Deficits Noted Safety Awareness Decreased Safety Awareness Memory Description No Deficits Noted Gross Range of Motion Lower Extremity ROM Impairments pt has B ankle tighness with decrease DF Strength Lower Extremity Strength Assessment Left Impaired Hip 3+/5 Knee 3+/5 Coordination Assessment Gross Coordination Gross Coordination WNL Sensation Assessment Sensation Gross Sensation WNL Muscle Tone Muscle Tone WNL Yes M6 PT-IP Treatment Start: 09/21/22 12:11 Freq: NEEDED Status: Active Protocol: Document 09/21/22 10:30 AB (Rec: 09/21/22 12:23 AB [id number]) Physical Therapy Treatment Education Education Provided Precautions,Weight Bearing Status,Post-Op Packet,Safety M7 PT-IP Assessment and Plan Start: 09/21/22 12:11 Freq: NEEDED Status: Active Protocol: Document 09/21/22 10:30 AB (Rec: 09/21/22 12:23 AB [email or web address]) PT Summary Assessment and Plan Potential Rehabilitation Potential Fair Status of Condition at Evaluation Evolving Summary Impairments Pain,ROM,Strength,Balance, Coordination,Sensation,Tone, Cognition,Bed Mobility, Transfers,Gait,Activity Tolerance Assessment Summary pt with GLF and sustained a L femur fx and underwent IM nailing ORIF POD 1. pt is WBAT on LLE. pt requiring mod to max A for transfers and ambulation using FWW and will require SNF rehab to improve stregnth and mobility independence. Goals Bed Mobility Goal Independent Transfer Goal Standby Assistance,Front Wheeled Walker Gait Goal Standby Assistance,Front Wheel Walker Gait Distance 150 Other Goals up/down 1 step using FWW SBA Days to Meet Goals 10 Frequency of Treatment Frequency Of Treatment Twice a Day Treatment Plan Physical Therapy Treatment Plan Bed Mobility Training,Transfer Training,Gait Training, Therapeutic Exercise,Balance Retraining,Post Op Education, Discharge Planning,Hot or Cold Pack,Neuromuscular Re-ed, Coordination Retraining,Manual Therapy Weight Bearing Status Weight Bearing Status Weight Bear as Tolerated Allowed Weight Bearing Amount (enter % LLE WBAT or #) (%) Recommendations To Nursing Amount of Assist Needed 1 Person Assist Discharge Recommendations PT Discharge Recommendations SNF Rehab Transportation Needs at Discharge Private Vehicle,Wheelchair/ Cabulance
--- NOTE | 2022-09-21 10:32 | PM.PNPO.1 ---
Subjective Subjective Date Patient Seen: 09/21/22 Time Patient Seen: 10:32 Interval history: Patient's left leg pain is mild. Denies fever/ chills. No nausea or vomiting. Patient lives alone. Her [id number] is here who is a nurse. She works in [employer]. [id number] informed me that patient has started physical therapy for some left hip pain a few weeks ago. She is otherwise without complaints this morning. Exam Vital Signs (past 8 hours): - 09/21/22 03:51 09/21/22 08:55 09/21/22 08:58 Temperature 98.4 F Pulse Rate 77 77 77 Respiratory Rate 16 Blood Pressure 132/69 132/69 132/69 Pulse Oximetry 95 Oxygen Flow Rate 0 09/21/22 08:00 Temperature 98 F Pulse Rate 66 Respiratory Rate 18 Blood Pressure 113/61 Pulse Oximetry 98 Oxygen Flow Rate 0 Oxygen Delivery Method Room Air Oxygen Flow Rate 0 Narrative Exam Narrative: 81-year-old female resting comfortably in bed in no apparent distress. Dressing is Clean, dry, intact.. Motor functions intact bilateral lower extremities. Sensation grossly intact to light touch bilateral lower extremities. Const General: cooperative and comfortable Nutritional Appearance: average body habitus Orientation: alert Resp Effort & Inspection: normal respiratory effort and able to speak in complete sentences Objective Labs 09/21/22 06:25 09/21/22 06:25 Labs: Laboratory Results - last 24 hr 09/20/22 09/20/22 09/20/22 12:00 12:00 12:00 WBC RBC Hgb Hct MCV MCH MCHC RDW Plt Count Sodium Potassium Chloride Carbon Dioxide BUN Creatinine Estimated GFR BUN/Creatinine Ratio Glucose Calcium Magnesium 1.7 Iron TIBC % Saturation Transferrin Ferritin Troponin I 0.085 H NT-Pro-B Natriuret Pep 991 H 09/21/22 09/21/22 09/21/22 06:25 06:25 06:25 WBC RBC Hgb Hct MCV MCH MCHC RDW Plt Count Sodium 137 Potassium 4.4 Chloride 101 Carbon Dioxide 31 BUN 10 Creatinine 0.52 Estimated GFR > 60 BUN/Creatinine Ratio 19.2 Glucose 136 H Calcium 9.5 Magnesium 1.6 Iron 21 L TIBC 299 % Saturation 7 L Transferrin 209 Ferritin 107 Troponin I NT-Pro-B Natriuret Pep 09/21/22 06:25 WBC 9.0 RBC 3.17 L Hgb 10.0 L Hct 29.3 L MCV 92.5 MCH 31.6 MCHC 34.2 RDW 13.3 Plt Count 259 Sodium Potassium Chloride Carbon Dioxide BUN Creatinine Estimated GFR BUN/Creatinine Ratio Glucose Calcium Magnesium Iron TIBC % Saturation Transferrin Ferritin Troponin I NT-Pro-B Natriuret Pep [facility] Medical History Dyslipidemia Essential hypertension History of bladder cancer Surgical History History of appendectomy Family History Father CVA (cerebral vascular accident) Mother Diabetes mellitus Social History marital status: household members: none lives independently: Yes (In longterm community) caregiver/support person: No Smoking Status: Former smoker Tobacco: How many years used: 40 alcohol intake: current substance use type: does not use additional social history: Daughter lives in [place]. Assessment & Plan Post-op Postoperative Procedures: Procedures Operation Date: 09/20/22 13:15 Actual Procedure Side Surgeon p Intramedullary Nailing Femur Gustabo Wyman MD Postoperative day: 1 Postoperative status: doing well Postoperative plan narrative: Patient progressing as expected status post intramedullary nail left femur Weightbearing as tolerated with crutches or walker for 4 weeks, after 4 weeks it is okay to ambulate without assistance is stable and strong enough Okay to remove dressing at 7 days, no soaking the wound until completely healed Follow-up in 2 weeks for staple removal and follow-up [address] Wyman for x-rays Disposition likely snf facility when stable per hospitalist
[2022-09-21] MEDS: SODIUM CHLORIDE 0.9% 500 ML IV (13:37)
--- NOTE | 2022-09-21 14:25 | PT.IPTN ---
Current Diagnoses Unspecified fracture of left femur, initial encounter for closed fracture (09/19/22) Surgery Performed Operation Date: 09/20/22 13:15 Actual Procedures p Intramedullary Nailing Femur - Gustabo Wyman MD Physical Therapy Treatment Note M2 PT-IP Current Condition Start: 09/21/22 12:11 Freq: NEEDED Status: Active Protocol: Document 09/21/22 10:30 AB (Rec: 09/21/22 12:23 AB [id number]) Physical Therapy Current Condition Current Condition Evaluation Date 09/21/22 Treatment Diagnosis GLF; L femur fx s/p IM nailing ; difficulty in walking Onset Date 09/19/22 M3 PT-IP Subjective Start: 09/21/22 12:11 Freq: NEEDED Status: Active Protocol: Document 09/21/22 14:55 TS (Rec: 09/21/22 15:15 TS [id number]) Subjective Physical Therapy Visit Type Type Treatment Note Visit Start Time 14:25 Visit Stop Time 14:44 Total Visit Minutes 19 Notes DIL present. BP: 112/70 sitting. Number of MANAGER LEADERSHIP DEVELOPMENT Visits 1 Physical Therapy Visit Comments Patient Comments agreeable to do PT Therapy Pain Assessment Pain When Pain Assessed During Mobility Pain Present Pain Present Pain Reported Location Left Hip Pain Management Techniques Apply Cold,Distraction, Modification of Treatment,Re- positioning,Timing of Activity with Medications M4 PT-IP Mobility and Gait Start: 09/21/22 12:11 Freq: NEEDED Status: Active Protocol: Document 09/21/22 14:55 TS (Rec: 09/21/22 15:15 TS [id number]) PT-Bed Mobility Assessment Supine to Sit Supine to Sit Standby Assistance,1 Person Assistance,Bedrails Scooting Scooting to Edge of Bed Standby Assistance PT-Transfer Assessment Sit to and From Stand Sit to and from Stand Minimal Assistance,1 Person Assistance,Use of Upper Extremities Equipment Transfer Assistive Device Gait Belt,Front Wheeled Walker Orthotic/Prosthetic Devices or Brace: No Comments Mobility Comments Pt found resting in bed, agreeable to PT. Supine to sit with HOB elevated 15D SBA with BUE support on bed. Pt scooted to EOB with increase time to get feet flat on floor . Sit to stand Leonela w/FWW slight retrolean initially in standing. She ambulated in room CGA ~50' with emerging step thru gait, reports some weakness in LLE, no buckling or LOB noted. Stand to sit to chair Leonela for eccentric control and cues provided for reaching back for arms of chair. Pt was left in room with DIL, ice pack for leg and RN in room. Gait Assessment Gait Gait Assistance Required: Contact Guard Assist Distance (Feet) 50 Able to Maintain Weight Bearing Status Yes During Gait Assistive Devices Assistive Device Gait Belt,Front Wheeled Walker Orthotic/Prosthetic Devices or Brace: No Gait Deviations General Gait Pattern Antalgic,Decreased Stride Length,Decreased Feet Clearance,Step-to Gait Factors Limiting Gait Function Factors Limiting Gait Function Limited Range of Motion,Pain, Poor Balance,Poor Safety Awareness Comments Gait Comments See mobility comments. PT-Balance Assessment Sitting Balance and Reactions Static Sitting Balance Ability Good Dynamic Sitting Balance Ability Good Standing Balance and Reactions Static Standing Balance Ability Good Dynamic Standing Balance Ability Fair Device Used FWW M5 PT-IP Objective Assessments Start: 09/21/22 12:11 Freq: NEEDED Status: Active Protocol: Document 09/21/22 10:30 AB (Rec: 09/21/22 12:23 AB [id number]) Orientation Orientation/Cognition Level of Alertness Alert Orientation Name,Place,Situation Language Function Ability No Deficits Noted Safety Awareness Decreased Safety Awareness Memory Description No Deficits Noted Gross Range of Motion Lower Extremity ROM Impairments pt has B ankle tighness with decrease DF Strength Lower Extremity Strength Assessment Left Impaired Hip 3+/5 Knee 3+/5 Coordination Assessment Gross Coordination Gross Coordination WNL Sensation Assessment Sensation Gross Sensation WNL Muscle Tone Muscle Tone WNL Yes M6 PT-IP Treatment Start: 09/21/22 12:11 Freq: NEEDED Status: Active Protocol: Document 09/21/22 14:55 TS (Rec: 09/21/22 15:15 TS [id number]) Physical Therapy Treatment Education Education Provided Precautions,Weight Bearing Status,Post-Op Packet,Safety M7 PT-IP Assessment and Plan Start: 09/21/22 12:11 Freq: NEEDED Status: Active Protocol: Document 09/21/22 14:55 TS (Rec: 09/21/22 15:15 TS [id number]) PT Summary Assessment and Plan Potential Rehabilitation Potential Good Summary Impairments Pain,ROM,Strength,Balance, Coordination,Sensation,Tone, Cognition,Bed Mobility, Transfers,Gait,Activity Tolerance Progress Towards Goals Progressing Toward Goals Assessment Summary Pt is progressing well with her mobility this session. She is SBA for all bed mobility from slightly elevated bed. She required decreased assist for sit to stands to Leonela x1. She progressed her gait to CGA with FWW to ~50' in room, no buckling or LOB but some unsteadiness in FWW, she remains a falls risk. PT is recommending SNF rehab to progress transfers, gait and activity tolerance. Goals Bed Mobility Goal Independent Transfer Goal Standby Assistance,Front Wheeled Walker Gait Goal Standby Assistance,Front Wheel Walker Gait Distance 150 Other Goals up/down 1 step using FWW SBA Days to Meet Goals 10 Frequency of Treatment Frequency Of Treatment Twice a Day Treatment Plan Physical Therapy Treatment Plan Bed Mobility Training,Transfer Training,Gait Training, Therapeutic Exercise,Balance Retraining,Post Op Education, Discharge Planning,Hot or Cold Pack,Neuromuscular Re-ed, Coordination Retraining,Manual Therapy Other Recommendations and Next Treatment Progress gait. Focus Weight Bearing Status Weight Bearing Status Weight Bear as Tolerated Allowed Weight Bearing Amount (enter % LLE WBAT or #) (%) Recommendations To Nursing Amount of Assist Needed 1 Person Assist Discharge Recommendations PT Discharge Recommendations SNF Rehab Transportation Needs at Discharge Private Vehicle,Wheelchair/ Cabulance
--- NOTE | 2022-09-21 17:56 | PC.NURSE ---
Day shift: Pt experienced hypotension while sitting in the chair for lunch. SBP 70s. Pt did not have any hypotensive symptoms. Notified MD Brar who ordered 500mL NS bolus. 1/[address] through bolus, IV infiltrated. Unable to get IV access - 2 nurses tried. MD Brar ok'ed to stop bolus since BP has improved and ok'ed no IV access for now. EKG done for assessment of afib. Per MD Brar, EKG showed sinus rylie. Elkins d/c'ed at 1500. Due to void by 2300. As of 1800, patient does not feel the urge to void. Will continue to monitor.
[2022-09-21] MEDS: SENNOSIDES 8.6 MG TABLET 17.2 MG PO (21:06)
[2022-09-21] MEDS: CALCIUM CARBONATE 500 MG TAB PO (21:06)
--- NOTE | 2022-09-21 23:19 | PC.NURSE ---
Patient is alert and oriented. Breath sounds with crackles at bilateral bases w/RA sat of 93%; denies SOB. HR irregular w/telemetry reading of afib CVR. BP initially low at 95/44 but on recheck was 104/55 and is asymptomatic. Denies nausea. Has not had BM since 09/18 and denies flatus but does have active BT in all quads. Had catheter removed at 1500 today and had not yet voided. Gotten up to bathroom at 2300 and voided approx 30cc with bladder scan showing 154cc so will continue to monitor. Is able to turn herself in bed. Up in room with walker and SBA but is weak on left LE. Did complain of 4/10 pain earlier and was medicated with oxycodone and when up to bathroom stated she had no pain. Dressings to left lateral upper leg intact with small amount sanguinous drainage on middle dressing. Allevyn dressings to right LE are CDI. CMS is intact and able to lift left leg off bed but decreased ROM. Declines use of SCD's so reminded to ankle wave. US guided IV placed by CUST[employer]S COMPLIANCE MANAGER as patient is still on telemetry. Fall risk score is high and bed alarm is activated.
[2022-09-22] VITALS (7 sets, daily range): BP systolic 87–132; BP diastolic 43–75; PULSE 60–84; RESP 16–18; TEMP 36.6–36.8; O2SAT 93–97
[2022-09-22] MEDS: OXYCODONE IR 5 MG TABLET PO ×4 (04:38→23:51)
[2022-09-22 06:18] LABS: Magnesium 1.4 mg/dL (1.6-2.3)
[2022-09-22] MEDS: MAGNESIUM SULFATE 4 GM/100 ML PIGGYBACK IV (08:35)
[2022-09-22] MEDS: DOCUSATE 100 MG CAPSULE PO ×2 (08:42→20:31)
[2022-09-22] MEDS: APIXABAN 5 MG TABLET PO ×2 (08:42→20:32)
[2022-09-22] MEDS: CHOLECALCIFEROL (VITAMIN D3) 1,000 UNIT TABLET 2000 UNIT PO (08:42)
[2022-09-22] MEDS: polyethylene glycoL 3350 17 GM POWD.PACK PO (08:43)
[2022-09-22] MEDS: SODIUM CHLORIDE 0.9% FLUSH 10 ML IV (08:43)
[2022-09-22] MEDS: ACETAMINOPHEN 325 MG TABLET 650 MG PO ×2 (08:46→15:23)
--- NOTE | 2022-09-22 10:59 | CM.DPC ---
Addendum entered by Luna Prasad R.N. 09/22/22 14:48: Did not hear back from [facility]. Nurse, Mavis, noted that patient had some decreased BP readings, had to give IV bolus fluids, family concerned about her leaving today. Hospitalist will keep another day. Called Madeleine at [facility] and updated her, she does have transportation for tomorrow, she gave an estimate time of picking belt operator for tomorrow at 1230. Have updated patient and son of time, and have written on her white board. Madeleine will call tomorrow if time needs to be adjusted. PASSR is completed. Patient is pleasant, alert and oriented, is pleased that she will be going to [facility]. Original Note: DCP Cont: Dr. Brar indicated that patient is not yet aware of her metastasis, plans a goals of care conference with patient and family today. [id number], who is a nurse, is aware. Dr. Brar indicated that patient could potentially go today to [facility] after discussion, unsure if plans will change after conversation. Called Madeleine at [facility], can accept today, as long as it is before 5:00pm. They have no transportation, [facility], would have to be set up, and they bill their facility. Did call [facility], left a message, unsure if they are open today. Other option is for family to transport. P: DCP to follow closely. Will see how conversation goes with patient today, and if family is able to transport to [facility] as well, as long as this is still the plan. Will see if PASSR is completed. Luna Prasad RN/[place]
--- NOTE | 2022-09-22 11:09 | PT.IPTN ---
Current Diagnoses Unspecified fracture of left femur, initial encounter for closed fracture (09/19/22) Surgery Performed Operation Date: 09/20/22 13:15 Actual Procedures p Intramedullary Nailing Femur - Gustabo Wyman MD Physical Therapy Treatment Note M2 PT-IP Current Condition Start: 09/21/22 12:11 Freq: NEEDED Status: Active Protocol: Document 09/21/22 10:30 AB (Rec: 09/21/22 12:23 AB [id number]) Physical Therapy Current Condition Current Condition Evaluation Date 09/21/22 Treatment Diagnosis GLF; L femur fx s/p IM nailing ; difficulty in walking Onset Date 09/19/22 M3 PT-IP Subjective Start: 09/21/22 12:11 Freq: NEEDED Status: Active Protocol: Document 09/22/22 10:50 KS (Rec: 09/22/22 13:03 KS [id number]) Subjective Physical Therapy Visit Type Type Treatment Note Visit Start Time 10:50 Visit Stop Time 11:09 Total Visit Minutes 19 Number of COMMUNITY SERVICE REPRESENTATIVE Visits 2 Physical Therapy Visit Comments Patient Comments agreeable to do PT Therapy Pain Assessment Pain When Pain Assessed During Mobility Pain Present Pain Present Pain Reported Location Left Hip Scale Used not quantified Pain Management Techniques Elevation,Re-positioning, Timing of Activity with Medications M4 PT-IP Mobility and Gait Start: 09/21/22 12:11 Freq: NEEDED Status: Active Protocol: Document 09/22/22 10:50 KS (Rec: 09/22/22 13:03 KS [id number]) PT-Bed Mobility Assessment Supine to Sit Supine to Sit Standby Assistance,1 Person Assistance,Bedrails Scooting Scooting to Edge of Bed Standby Assistance PT-Transfer Assessment Sit to and From Stand Sit to and from Stand Minimal Assistance,Moderate Assistance,1 Person Assistance ,Use of Upper Extremities Equipment Transfer Assistive Device Gait Belt,Front Wheeled Walker Orthotic/Prosthetic Devices or Brace: No Transfers Transfer Destination Chair,Toilet Transfer Technique ambulated Transfer Ability Level of Assist Moderate Assistance,1 Person Assistance,Use of Upper Extremities Comments Mobility Comments Pt in bed upon arrival, agreeable to ambulate. SBA for bed mobility, Min A for sit<> stand w/ FWW and ambulation to bathroom. Pt c/o increased pain when ambulating, but was able to tolerate. She required Mod A for sit<>Stand from toilet. Reveiwed LE stregnthening exercises and pt left in chair w/ all needs in reach. Gait Assessment Gait Gait Assistance Required: Contact Guard Assist Distance (Feet) 30 Able to Maintain Weight Bearing Status Yes During Gait Assistive Devices Assistive Device Gait Belt,Front Wheeled Walker Orthotic/Prosthetic Devices or Brace: No Gait Deviations General Gait Pattern Antalgic,Decreased Stride Length,Decreased Feet Clearance,Step-to Gait Factors Limiting Gait Function Factors Limiting Gait Function Limited Range of Motion,Pain, Poor Balance,Poor Safety Awareness Comments Gait Comments See mobility comments. PT-Balance Assessment Sitting Balance and Reactions Static Sitting Balance Ability Good Dynamic Sitting Balance Ability Good Standing Balance and Reactions Static Standing Balance Ability Good Dynamic Standing Balance Ability Fair Device Used FWW M5 PT-IP Objective Assessments Start: 09/21/22 12:11 Freq: NEEDED Status: Active Protocol: Document 09/21/22 10:30 AB (Rec: 09/21/22 12:23 AB [id number]) Orientation Orientation/Cognition Level of Alertness Alert Orientation Name,Place,Situation Language Function Ability No Deficits Noted Safety Awareness Decreased Safety Awareness Memory Description No Deficits Noted Gross Range of Motion Lower Extremity ROM Impairments pt has B ankle tighness with decrease DF Strength Lower Extremity Strength Assessment Left Impaired Hip 3+/5 Knee 3+/5 Coordination Assessment Gross Coordination Gross Coordination WNL Sensation Assessment Sensation Gross Sensation WNL Muscle Tone Muscle Tone WNL Yes M6 PT-IP Treatment Start: 09/21/22 12:11 Freq: NEEDED Status: Active Protocol: Document 09/22/22 10:50 KS (Rec: 09/22/22 13:03 KS [id number]) Physical Therapy Treatment Exercises Exercises Ankle Pumps,Gluteal Sets,Quad Sets Education Education Provided Precautions,Weight Bearing Status,Post-Op Packet,Safety M7 PT-IP Assessment and Plan Start: 09/21/22 12:11 Freq: NEEDED Status: Active Protocol: Document 09/22/22 10:50 KS (Rec: 09/22/22 13:03 KS [id number]) PT Summary Assessment and Plan Potential Rehabilitation Potential Good Summary Impairments Pain,ROM,Strength,Balance, Coordination,Sensation,Tone, Cognition,Bed Mobility, Transfers,Gait,Activity Tolerance Progress Towards Goals Progressing Toward Goals Assessment Summary Pt continues to make slow progress towards goals and demonstrates good effort. She is limited by weakness and pain and requires Min to Mod A for sit<>Stands and Min A for ambulation. Cont to recommned SNF to decrease fall risk and increase strength and functional mobility independence. Goals Bed Mobility Goal Independent Transfer Goal Standby Assistance,Front Wheeled Walker Gait Goal Standby Assistance,Front Wheel Walker Gait Distance 150 Other Goals up/down 1 step using FWW SBA Days to Meet Goals 10 Frequency of Treatment Frequency Of Treatment Twice a Day Treatment Plan Physical Therapy Treatment Plan Bed Mobility Training,Transfer Training,Gait Training, Therapeutic Exercise,Balance Retraining,Post Op Education, Discharge Planning,Hot or Cold Pack,Neuromuscular Re-ed, Coordination Retraining,Manual Therapy Other Recommendations and Next Treatment Progress gait. Focus Weight Bearing Status Weight Bearing Status Weight Bear as Tolerated Allowed Weight Bearing Amount (enter % LLE WBAT or #) (%) Recommendations To Nursing Amount of Assist Needed 1 Person Assist Discharge Recommendations PT Discharge Recommendations SNF Rehab Transportation Needs at Discharge Private Vehicle,Wheelchair/ Cabulance
[2022-09-22] MEDS: SODIUM CHLORIDE 0.9% 500 ML IV (12:45)
--- NOTE | 2022-09-22 14:32 | PM.PN.1 ---
Subjective Subjective Date Patient Seen: 09/22/22 Time Patient Seen: 14:32 Interval history: Patient is seen 2 days postop from her left intramedullary nail for a left subtrochanteric femur fracture. Her son is in the room. She is doing well. Plan is for her to go to a longterm facility in [facility] Today or tomorrow. She is been up with a walker with assistance and has been able to put weight on her leg. Tiny bit of tingling in her toes otherwise no numbness or tingling. No other complaints at this time Exam Vital Signs (past 8 hours): - 09/22/22 08:00 09/22/22 11:56 Temperature 97.8 F 97.9 F Pulse Rate 60 61 Respiratory Rate 18 18 Blood Pressure 129/60 87/43 L Pulse Oximetry 93 94 Oxygen Flow Rate 0 0 Oxygen Delivery Method Room Air Oxygen Flow Rate 0 Narrative Exam Narrative: HEENT: Head atraumatic eyes anicteric moist mucous membranes Cardiovascular: Palpable peripheral pulses extremities are warm and well perfused Respiratory: Breathing comfortably on room air Psychiatric: Appropriate mood and affect Neuro: No acute deficits Musculoskeletal: incision sites are clean dry and intact without any breakthrough bleeding. Able to fire EHL, FHL, tib ant and gastrocs. 2+ dorsalis pedis pulse with brisk capillary refill less than 2 seconds. Sensation intact to light touch in sural, saphenous, superficial peroneal, deep peroneal and tibial nerve distributions. Objective Labs 09/21/22 06:25 09/21/22 06:25 Labs: Laboratory Results - last 24 hr 09/21/22 09/22/22 06:25 05:55 Sodium 137 Potassium 4.4 Chloride 101 Carbon Dioxide 31 BUN 10 Creatinine 0.52 Estimated GFR > 60 BUN/Creatinine Ratio 19.2 Glucose 136 H Calcium 9.5 Magnesium 1.4 L Ferritin 107 PFSH Medical History Dyslipidemia Essential hypertension History of bladder cancer Surgical History History of appendectomy Family History Father CVA (cerebral vascular accident) Mother Diabetes mellitus Social History marital status: household members: none lives independently: Yes ([place] [facility]) caregiver/support person: No Smoking Status: Former smoker Tobacco: How many years used: 40 alcohol intake: current substance use type: does not use additional social history: Daughter lives in [place]. Assessment & Plan Assessment & Plan narrative: Assessment: 81-year-old female 2 days status post left intramedullary nail for subtrochanteric femur fracture progressing as expected postoperative course Plan: Continue to weightbear as tolerated with assistance. She did have preoperative AFib and so should continue on anticoagulation (minimum of 4 weeks per my protocol even if she did not have AFib) otherwise come to be managed by her primary care. Currently on Eliquis in the hospital. We discussed limiting narcotic medications which she already has been doing. Ice 30 minutes every hour if needed. For the dressings, she can remove postoperative day 3, shower with warm soap and water and then placed Band-Aids over her incisions. I will plan to see her 2 weeks postop and then 6 weeks postop with x-rays on the 6 week postoperative visit.
--- NOTE | 2022-09-22 14:58 | PT-IP ANOTE ---
Per RN, pt awaiting care conference for new cancer diagnosis. Hold PT this PM.
--- NOTE | 2022-09-22 17:12 | PM.PN.1 ---
Subjective Subjective Interval history: Patient's hip feeling well. Family present in room to discuss CT chest findings. ACP note below details discussion. ACP Note Active Diagnoses: Newly diagnosed metastatic lung cancer These active diagnoses are of sufficient risk that focused discussion on advance care planning is indicated in order to allow the patient to thoughtfully consider personal goals of care; and, if situations arise that prevent the ability to personally give input, to ensure appropriate representation of their personal desires through documentation or informed surrogate decision makers. Persons present and participating in discussion: Myself, patient, 2 sons, daughter and [id number] Discussion: I began by explaining that can had a chest x-ray on admission which showed a suspicious left hilar opacity. Due to this a CT chest was done which returned showing a large with multiple metastatic nodules, bulky hilar lymphadenopathy concerning for metastasis and a large liver lesion consistent with metastasis. I relayed that primary lung cancer was the likely diagnosis with metastatic disease. Patient understood and noted that ?I did smoke for 40 years?. She expressed interest in obtaining a referral from her PCP to Oncology to determine next steps in treatment. Family expressed interest in [facility] in [place]. I will call her PCP tomorrow morning to have her placed an urgent referral there. Patient had no further questions was thankful for straight forward news about her incidentally found lung cancer. Time Spent: Total time spent [id number] in education and discussion directly related to Advance Care Plannin minutes Asa Brar, DO at 1430 on 09/22 Exam Vital Signs (past 8 hours): - 09/22/22 11:56 09/22/22 15:47 09/22/22 13:10 Temperature 97.9 F 98.2 F Pulse Rate 61 64 66 Respiratory Rate 18 18 Blood Pressure 87/43 L 119/68 114/62 Pulse Oximetry 94 97 Oxygen Flow Rate 0 0 09/22/22 13:00 Temperature Pulse Rate 68 Respiratory Rate Blood Pressure 112/60 Pulse Oximetry Oxygen Flow Rate Oxygen Delivery Method Room Air Oxygen Flow Rate 0 Narrative Exam Narrative: HEENT: Head atraumatic eyes anicteric moist mucous membranes Cardiovascular: Palpable peripheral pulses extremities are warm and well perfused Respiratory: Breathing comfortably on room air Psychiatric: Appropriate mood and affect Neuro: No acute deficits Musculoskeletal: incision sites are clean dry and intact without any breakthrough bleeding. Able to fire EHL, FHL, tib ant and gastrocs. 2+ dorsalis pedis pulse with brisk capillary refill less than 2 seconds. Sensation intact to light touch in sural, saphenous, superficial peroneal, deep peroneal and tibial nerve distributions. Objective Labs 09/21/22 06:25 09/21/22 06:25 Labs: Laboratory Results - last 24 hr 09/21/22 09/22/22 06:25 05:55 Sodium 137 Potassium 4.4 Chloride 101 Carbon Dioxide 31 BUN 10 Creatinine 0.52 Estimated GFR > 60 BUN/Creatinine Ratio 19.2 Glucose 136 H Calcium 9.5 Magnesium 1.4 L Ferritin 107 PFSH Medical History Dyslipidemia Essential hypertension History of bladder cancer Surgical History History of appendectomy Family History Father CVA (cerebral vascular accident) Mother Diabetes mellitus Social History marital status: household members: none lives independently: Yes (In senior care community) caregiver/support person: No Smoking Status: Former smoker Tobacco: How many years used: 40 alcohol intake: current substance use type: does not use additional social history: Daughter lives in [place]. 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, closed, acute, present on admission -s/p ORIF 09/19/22 -routine postop pain mgmt, PT -SNF rehab planned for 09/23 # Paroxysmal atrial fibrillation -recent outpatient diagnosis but has not had w/u -ECHO shows EF 55-60%, mild dyssynchronous contraction pattern, no valvular pathology -telemetry -agrees to start Eliquis 5 mg bid -restart home metop succ but at 25mg daily due to hypotension # Probable lung cancer, incidentally found -possible left hilar mass intially seen on CXR, concerning for malignancy in ex-smoker -chest CT with contrast ordered for 09/21 and shows likely lung cancer with metastasis to liver -had family conference on 09/22 with all patient's children present in room to deliver the news that she has newly diagnosed cancer, see ACP note in HPI # Hypertensive urgency in ED, resolved, now with hypotension -initial BP 201/102 in setting of acute pain in ED -BP on 09/21 dipped to 90s/50s -held home meds lisinopril, metoprolol -given 500cc bolus with improvement # Elevated troponin -secondary to demand ischemia from elevated blood pressure, pain/stress from fall -trop peaked and declining -echo as above # Iron deficiency anemia -iron studies show normal ferritin but low transferrin sat at 7% -B12 pending -should dc on po iron supplementation # HLD -continue statin DVT prevention: started on Eliquis Dispo: SNF on 09/23.
[2022-09-22] MEDS: SENNOSIDES 8.6 MG TABLET 17.2 MG PO (20:31)
[2022-09-22] MEDS: CALCIUM CARBONATE 500 MG TAB PO (20:32)
[2022-09-23 00:28] VITALS: BP 133/80; PULSE 69; RESP 18; TEMP 36.4; O2SAT 94
[2022-09-23 06:15] VITALS: BP 150/73; PULSE 72; RESP 20; TEMP 36.8; O2SAT 94
--- NOTE | 2022-09-23 07:56 | PM.DS.1 ---
History of Present Illness History of Present Illness Date Patient Seen: 09/20/22 Time Patient Seen: 12:46 Chief complaint: GLF- left femur fracture, Afib Narrative: Gini is a pleasant 81-year-old female with past medical history of AFib and hypertension who presented to the emergency department at [facility] overnight after a ground level fall when she was chasing her garbage can down the alley and she slipped and fell. Imaging in the emergency department demonstrated a displaced subtrochanteric femur fracture. She lives in [place] by herself. She was previously fully ambulatory without assistive devices. Currently denies any distal numbness or tingling. Denies any recent nausea, vomiting, diarrhea, fevers, chills or any other constitutional symptoms. No other musculoskeletal complaints at this time. Discharge Providers Provider Date of admission: 09/19/22 23:26 Discharge Date: 09/23/22 Primary care physician: Denise Figueroa PA-C Consults: 09/19/22 23:42 Consult to Physician Routine Comment: Consulting Provider: Gustabo Wyman Reason for consultation: Left femur fx Has provider been notified: Yes 09/20/22 04:29 Consult to MASTER OCEAN - General Manager In Training Routine Comment: pt lives alone, will need plan for care support 09/20/22 16:10 Consult to Discharge Planning Routine Comment: Consult to Physical Therapy Evaluate & Treat Comment: Physician Instructions: Evaluate and Treat 09/21/22 08:05 Consult to Occupational Therapy Evaluate & Treat Comment: Physician Instructions: Evaluate and treat Discharge provider: Asa Brar DO Summary Hospital Course Discharge Diagnosis: # 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, closed, acute, present on admission -s/p ORIF 09/19/22 -routine postop pain mgmt, PT -SNF rehab dc on 09/23 -continue eliquis # Paroxysmal atrial fibrillation -recent outpatient diagnosis but has not had w/u -ECHO shows EF 55-60%, mild dyssynchronous contraction pattern, no valvular pathology -telemetry -agrees to start Eliquis 5 mg bid -restart home metop succ but at 25mg daily due to hypotension # Newly diagnosed metastatic lung cancer, incidentally found -possible left hilar mass intially seen on CXR, concerning for malignancy in ex-smoker -chest CT with contrast ordered for 09/21 and shows likely lung cancer with metastasis to liver -had family conference on 09/22 with all patient's children present in room to deliver the news that she has newly diagnosed cancer, see ACP note below -referral placed to [facility] at [phone] per patient's family request, records and imaging faxed to [phone] # Hypertensive urgency in ED, resolved, now with hypotension -initial BP 201/102 in setting of acute pain in ED -BP on 09/21 dipped to 90s/50s -held home lisinopril, metoprolol dose lowered -given 500cc bolus with improvement # Elevated troponin -secondary to demand ischemia from elevated blood pressure, pain/stress from fall -trop peaked and declining -echo as above # Iron deficiency anemia -iron studies show normal ferritin but low transferrin sat at 7% -B12 pending -should dc on po iron supplementation # HLD -continue statin ACP Note Active Diagnoses:? Newly diagnosed metastatic lung cancer These active diagnoses are of sufficient risk that focused discussion on advance care planning is indicated in order to allow the patient to thoughtfully consider personal goals of care; and, if situations arise that prevent the ability to personally give input, to ensure appropriate representation of their personal desires through documentation or informed surrogate decision makers. Persons present and participating in discussion:? Myself, patient, 2 sons, daughter and [id number] Discussion:? I began by explaining that can had a chest x-ray on admission which showed a suspicious left hilar opacity.? Due to this a CT chest was done which returned showing a large with multiple metastatic nodules, bulky hilar lymphadenopathy concerning for metastasis and a large liver lesion consistent with metastasis.? I relayed that primary lung cancer was the likely diagnosis with metastatic disease.? Patient understood and noted that ?I did smoke for 40 years?.? She expressed interest in obtaining a referral from her PCP to Oncology to determine next steps in treatment.? Family expressed interest in [facility] in [place].? I will call her PCP tomorrow morning to have her placed an urgent referral there.? Patient had no further questions was thankful for straight forward news about her incidentally found lung cancer. Time Spent: Total time spent [id number] in education and discussion directly related to Advance Care Planning:? 32 minutes Hospital Course: Admitted for GLF while chasing trashcan than rolled down the hill resulting in left femur fracture. Underwent ORIF with ortho and did well post-op. Had A-fib on tele which had recently been diagnosed as outpatient. Started on eliquis 5mg BID for this. Had some hypotensive episodes which improved with fluid boluses so her home lisinopril was held and metoprolol XL was lowered to 25mg daily. CXR done on admission showed suspicious lung mass so CT chest with contrast done which confirmed a large left hilar lung mass with mets to liver. Family conference held with patient to share the new diagnosis and she expressed interest in seeking oncological treatment at [facility]. A referral was made there and medical records were faxed over along with CT imaging. Time Spent with Patient Time spent: Greater than 30 minutes Exam Vital Signs (past 8 hours): - 09/23/22 00:28 09/23/22 06:15 Temperature 97.6 F 98.3 F Pulse Rate 69 72 Respiratory Rate 18 20 Blood Pressure 133/80 150/73 H Pulse Oximetry 94 94 Oxygen Flow Rate 0 0 Oxygen Delivery Method Room Air Oxygen Flow Rate 0 Narrative Exam Narrative: Gen: alert, NAD Lungs: clear CV: regular Ext: left hip dressing clean and dry, no distal edema Neuro: mentation intact, nl affect and speech Objective Labs 09/21/22 06:25 09/21/22 06:25 Labs: Laboratory Results - last 24 hr 09/21/22 06:25 Sodium 137 Potassium 4.4 Chloride 101 Carbon Dioxide 31 BUN 10 Creatinine 0.52 Estimated GFR > 60 BUN/Creatinine Ratio 19.2 Glucose 136 H Calcium 9.5 Ferritin 107 PFSH Medical History Dyslipidemia Essential hypertension History of bladder cancer Surgical History History of appendectomy Family History Father CVA (cerebral vascular accident) Mother Diabetes mellitus Social History marital status: household members: none lives independently: Yes (In penitentiary community) caregiver/support person: No Smoking Status: Former smoker Tobacco: How many years used: 40 alcohol intake: current substance use type: does not use additional social history: Daughter lives in [place]. Discharge Plan Discharge Plan Patient Disposition: SNF Discharge orders & Medications Prescriptions: New Eliquis 5 mg Tablet 5 mg PO BID Qty: 60 0RF metoprolol succinate 25 mg Tablet Extended Release 24 Hr 25 mg PO DAILY Qty: 30 0RF oxycodone 5 mg Tablet 5 mg PO Q3HR PRN (Reason: Pain, Mild (1-3)) Qty: 30 0RF Continued atorvastatin 10 mg tablet 10 mg PO QAM Patient Comments: take 1 tablet by mouth once daily Discontinued lisinopril 20 mg tablet 20 mg PO QAM Patient Comments: take 1 tablet by mouth once daily metoprolol succinate 50 mg tablet extended release 24 hr 50 mg PO BID Patient Comments: take 1 tablet by mouth twice a day Follow up/Referrals: Denise Figueroa PA-C [Primary Care Provider] - Visit Report/Discharge Packet Stand Alone Forms: Patient Portal/API Discharge Data Primary Care Provider: Denise Figueroa
[2022-09-23 08:15] VITALS: BP 148/78; PULSE 102; RESP 18; TEMP 36.8; O2SAT 96
[2022-09-23 08:22] VITALS: BP 148/78; PULSE 99
[2022-09-23] MEDS: METOPROLOL ER 25 MG TABLET PO (08:22)
[2022-09-23] MEDS: DOCUSATE 100 MG CAPSULE PO (08:22)
[2022-09-23] MEDS: APIXABAN 5 MG TABLET PO (08:22)
[2022-09-23] MEDS: CHOLECALCIFEROL (VITAMIN D3) 1,000 UNIT TABLET 2000 UNIT PO (08:22)
[2022-09-23] MEDS: CALCIUM CARBONATE 500 MG TAB PO (08:22)
[2022-09-23] MEDS: polyethylene glycoL 3350 17 GM POWD.PACK PO (08:23)
[2022-09-23] MEDS: SODIUM CHLORIDE 0.9% FLUSH 10 ML IV (08:23)
[2022-09-23] MEDS: OXYCODONE IR 5 MG TABLET PO ×2 (08:24→13:37)
[2022-09-23 08:50] VITALS: PULSE 78
--- NOTE | 2022-09-23 08:51 | CM.DPC ---
Addendum entered by AILNA Morfin 09/23/22 11:57: ADD: Per Madeleine at [facility], wanted to make sure pt knew that Onc Tx could not start during SNF stay. NADINE met bedside with pt and adult Dtr and updated that referral sent to [facility] in [place] [facility] and they will receive a call for first appointment/establish care but that if medications recommended or tx that it could not happen until after SNF rehab and they acknowledged understanding and remain agreeable to d/c to [facility] today around 1430 now via [facility] as facility van was not available. NADINE updated RN and FIELD APPLICATION ENGINEER getting pt in the shower now. SW provided Dtr with the contact to call Medical Records as family was wanting her imaging to provide to medical providers. BF Original Note: DCP Discharge SNF Per MD, pt is medically stable to d/c to SNF today and no identified barriers to d/c and completed d/c pwk. Pt and family aware as plan had been set up yesterday for today and were bedside and agreeable with plan. LOIS Salter updated [facility] on discharge and faxed d/c packet PASRR, signed med list, scripts, orders to [facility] to review and confirmed no COVID swab needed. Facility van for transport at around 1230 today. LOIS Salter kindly updated RN, sales support advisor and [facility]. Plan: Patient to d/c to [facility] for rehab today via facility van at 1230 before safe return home. ALINA Morfin
--- NOTE | 2022-09-23 10:47 | CM.DPNOTE ---
Called Manjit Banda per Madeleine at [facility], because their transporters could not accommodate the 1230 transport. Spoke to Rafa to bring wheelchair, and he said soonest they could picking machine operator was 1430. I took that slot and told Gauri. Joie Murray, JOS Assist.
[2022-09-23] MEDS: ACETAMINOPHEN 325 MG TABLET 650 MG PO (10:49)
--- NOTE | 2022-09-23 10:50 | OT.IP.EVAL ---
Current Diagnoses Unspecified fracture of left femur, initial encounter for closed fracture (09/19/22) Surgery Performed Operation Date: 09/20/22 13:15 Actual Procedures p Intramedullary Nailing Femur - Gustabo Wyman MD Past Medical History (Last Reviewed 09/21/22 @ 10:33 by Leroy Ybarra PA-C) Dyslipidemia Essential hypertension History of bladder cancer Surgical History (Last Reviewed 09/21/22 @ 10:33 by Leroy Ybarra PA-C) History of appendectomy Occupational Therapy Inpatient Evaluation/Re-Eval M1 PT/OT-IP Prior Functional Status Start: 09/21/22 12:11 Freq: NEEDED Status: Active Protocol: Document 09/23/22 11:33 CGR (Rec: 09/23/22 11:43 CGR [id number]) Medical Review Prior Functional Status Medical History Reviewed Yes Communication able to make needs known Mobility and Gait pt stated that she is modified independent with all mobilities and ambulation using a tripod cane but only started using SPC ~ 6 weeks ago due to L hip pain Activities of Daily Living and IADL's Pt was IND in all ADLs at baseline. Pt drives and performs all IADLs without assist. Social History Household Members none Living Arrangements House Number of Floors (Floors) One Floor Number of Stairs To Enter/Railing? 1 step to enter Home Environment Walk in Shower,Built-In Shower Seat Home Equipment Front Wheel Walker,Quad Cane, Straight Cane,Hand Held Shower ,Business Ethics Professor,Sock Aid,Grab Bars In Shower Employment Status Retired Additional Social History Comment Pt has a flat bed M2 OT-IP Current Condition Start: 09/23/22 11:33 Freq: Status: Active Protocol: Document 09/23/22 11:33 CGR (Rec: 09/23/22 11:43 CGR [id number]) Occupational Therapy Current Condition Current Condition Evaluation Date 09/23/22 Treatment Diagnosis Fall w L pathologic femur fx. 09/19 IM nailing WBAT, lung CA new dx Diagnosis Onset Date 09/19/22 Weight Bearing Status Weight Bearing Status Weight Bear as Tolerated M3 OT- IP Subjective and Pain Start: 09/23/22 11:33 Freq: Status: Active Protocol: Document 09/23/22 11:33 CGR (Rec: 09/23/22 11:43 CGR [id number]) OT- Subjective Occupational Therapy Visit Type Type Initial Evaluation Visit Start Time 10:09 Visit Stop Time 10:50 Total Visit Minutes 41 Notes Pt's daughter persent throughout session. OT Pain Assessment Pain When Pain Assessed During Mobility Pain Present Pain Present Pain Reported Location Left Hip Intensity 4 Scale Used Numeric (0 - 10) Management Techniques Distraction,Modification of Treatment,Re-positioning, Timing of Activity with Medications M4 OT- IP ADL's Start: 09/23/22 11:33 Freq: Status: Active Protocol: Document 09/23/22 11:33 CGR (Rec: 09/23/22 11:43 CGR [id number]) OT [id number] Comments OT Self-Feeding Comments not meal time OT ADL-Grooming General Evaluation Grooming Ability Standby Assistance Areas Needing Assistance Combing/Brushing Hair,Face Washing Comments OT Grooming Comments standing at sink OT ADL-Oral Care Comments Oral Care Comments pt states already performed OT ADL-Dressing Comments OT Dressing Comments Educated pt on LB dressing with DME and demonstrated for pt but pt declined to practice at this time. OT ADL-Toileting General Evaluation Toileting Ability Standby Assistance Comments OT Toileting Comments Pt urinated seated on toielt. OT ADL-Bathing Comments OT Bathing Comments not performed M5 OT- IP IADL's Start: 09/23/22 11:33 Freq: Status: Active Protocol: Document 09/23/22 11:33 CGR (Rec: 09/23/22 11:43 CGR [id number]) OT-Instrumental Activities of Daily Living Deficits IADL Deficits Identified No Deficits Home Safety Awareness Awareness of Need for Assistance at Home Good Awareness Ability to Problem Solve Emergency Able to Problem Solve Situations Medication Management Medication Management No Deficits Identified Money Management Money Management No Deficits Identified Meal Preparation Meal Preparation Caregiver Provides Assist Engineering Production Liaison Engineering Production Liaison Caregiver Provides Assist Driving Driving Comments Pt's daughter states pt will have assist. M6 OT- IP Functional Cognition Start: 09/23/22 11:33 Freq: Status: Active Protocol: Document 09/23/22 11:33 CGR (Rec: 09/23/22 11:43 CGR [id number]) Cognitive Factors Limiting Selfcare Function Cognitive Ability Level of Alertness Alert Patient Orientation Name,Age,Birthday,Month,Date, Year,Day of Week,Place, Situation Attention Span Ability Capable of Focused Attention, Capable of Sustained Attention Ability to Follow Commands Able to Follow One Step Commands with Increased Time, Able to Follow One Step Commands with Repetition Safety Awareness No Deficits Noted OT- Vision and Hearing OT- Hearing Assessment OT- Hearing Assessment WFL OT- Vision Assessment Vision History Cataracts Visual Acuity Glasses For Reading Visual Attentiveness WFL Occular Pursuits WFL Visual Convergence WFL M7 OT- IP Mobility and Balance Start: 09/23/22 11:33 Freq: Status: Active Protocol: Document 09/23/22 11:33 CGR (Rec: 09/23/22 11:43 CGR [id number]) OT-Transfer Assessment Sit to and From Stand Sit to and from Stand Contact Guard Assistance Transfers Transfer Ability Contact Guard Assistance Technique Transfer Destination Chair,Toilet Transfer Technique Stand Step Pivot Devices Transfer Assistive Devices Gait Belt,Front Wheeled Walker Comments Mobility Comments Pt needed extra time for sit to stand from toilet but was able to perform using grab bar once positioned. OT- Balance Assessment Sitting Balance and Reactions Static Sitting Balance Ability Good Dynamic Sitting Balance Ability Good M8 OT- IP Objective Assessments Start: 09/23/22 11:33 Freq: Status: Active Protocol: Document 09/23/22 11:33 CGR (Rec: 09/23/22 11:43 CGR [id number]) OT Gross Range of Motion Upper Extremity Range of Motion Assessment Within Functional Limits OT Strength Upper Extremity Strength Assessment Within Functional Limits Comments Strength Comments grossly 4+/5 OT- Coordination Assessment Upper Extremity Finger to Nose Test Within Functional Limits Finger Tapping Test Within Functional Limits OT-Muscle Tone Assessment Muscle Tone WNL Yes OT Sensation Assessment Edema Edema Absent M9 OT- IP Assessment and Plan Start: 09/23/22 11:33 Freq: Status: Active Protocol: Document 09/23/22 11:33 CGR (Rec: 09/23/22 11:43 CGR [id number]) OT Summary Assessment and Plan Potential Rehabilitation Potential Excellent Analytic Complexity at Evaluation Moderate Summary OT Impairments Pain,Balance,Functional Mobility,Dressing,Toileting, Bathing,Toilet Transfers, Shower Transfers,Activity Tolerance Progress Towards Goals Progressing Toward Goals Assessment Summary Pt presents as a moderate complexity evaluation s/p admit for fall with L pathologic fx. Pt underwent 09/19/22 IM nailing and is WBAT. Pt was found to have lung CA during this visit. Pt mobilized well in the room reporting a 4/10 pain. Pt with fair- endurance. Pt will benefit from SNF upon discharge. Goals Grooming Goal Independent Dressing Goal Independent Toileting Goal Independent Bathing Goal Independent Toilet Transfer Goal Independent Shower Transfer Goal Independent Days to Meet Goals 30 Frequency of Treatment Frequency Of Treatment Once a Day Treatment Plan OT Treatment Plan ADL Training,Functional Mobility,Patient/Family Education,Discharge Planning Other Treatment Recommendations and Next shower, LB dressing Treatment Focus Discharge Recommendations OT Discharge Recommendations SNF Rehab Transportation Needs at Discharge Private Vehicle
[2022-09-23 15:02] LABS: Vitamin B12 513 pg/mL (239-931)
== END 2022-09-23 13:40 | DRG 481 ==
LOC: ED 23:05 → AC 23:27
PROVIDERS: Internal Medicine; Orthopaedic Surgery; Admitting Provider Nurse Practitioner Family; Emergency Provider Emergency Medicine; PCP Physician Assistant; Referring Provider Emergency Medicine; Visit Provider Nurse Practitioner Family
PROC: 0QS906Z Reposition Left Femoral Shaft with Intramedullary Internal Fixation Device, Open Approach (ICD-10-PCS; principal; 2022-09-20 13:15)
DX: M84.452A Pathological fracture, left femur, initial encounter for fracture (principal); C34.92 Malignant neoplasm of unspecified part of left bronchus or lung; I24.8 Other forms of acute ischemic heart disease; C78.7 Secondary malignant neoplasm of liver and intrahepatic bile duct; I16.0 Hypertensive urgency; I10 Essential (primary) hypertension; E78.5 Hyperlipidemia, unspecified; D50.9 Iron deficiency anemia, unspecified; I48.0 Paroxysmal atrial fibrillation; I95.9 Hypotension, unspecified; Z87.891 Personal history of nicotine dependence; Z20.822 Contact with and (suspected) exposure to COVID-19
CPT/HCPCS: 36415; 71045; 71260; 73502; 73552; 76000; 80048; 80053; 80061; 81001; 82607; 82728; 82962; 83540; 83550; 83690; 83735; 83880; 84145; 84439; 84443; 84484; 85025; 85027; 85610; 86850; 86900; 86901; 87040; 93005; 93010; 93306; 96374; 97116; 97162; 97166; 97535; 99284; J0171; J0690; J1100; J2270; J2405; J2704; J3010; J3475; J3490; Q9967

== ENCOUNTER 2022-11-26 12:59 | Inpatient (IN) | payer MEDICARE, OTHER, SELFPAY ==
[2022-09-20 02:40] VITALS: BMI 25.7
[2022-11-26] VITALS (13 sets, daily range): BP systolic 131–188; BP diastolic 64–97; PULSE 55–65; RESP 17–33; TEMP 36.1–36.4; O2SAT 93–98; BMI 21.7
--- NOTE | 2022-11-26 13:56 | DI.RAD.S_ITS ---
PROCEDURE: XR CHEST 1V INDICATIONS: CHEST PAIN TECHNIQUE: One view of the chest was acquired. COMPARISON: None. FINDINGS: Surgical changes and devices: None. Lungs and pleura: Lungs are clear. Probable 4.5 cm left perihilar region mass. No pleural effusions or pneumothorax. . Mediastinum: Mediastinal contours appear normal. Mild cardiomegaly. Bones and chest wall: No suspicious bony lesions. Overlying soft tissues appear unremarkable. IMPRESSION: Probable 4.5 cm left perihilar region mass. Recommend CT chest with contrast. Comment: Findings were discussed with Dr. Haq on 11.26.22 at 15:29 hours Dictated by: Yusef Tate M.D. on 11/26/2022 at 15:28 Approved by: Yusef Tate M.D. on 11/26/2022 at 15:31
[2022-11-26 14:46] LABS: Add Manual Diff / Slide Review NO; Basophils Absolute Auto 100 /uL (0-100); Basophils Percent Auto 0.5 % (0-2); Eosinophils Absolute Auto 0 /uL (0-450); Eosinophils Percent Auto 0.3 % (2-4); Hematocrit 30.9 % (36-46); Hemoglobin 10.4 g/dL (12.0-16.0); Lymphocytes Absolute Auto 1000 /uL (1100-4500); Lymphocytes Percent Auto 8.6 % (25-40); Mean Corpuscular HGB Conc 33.7 % (30-36); Mean Corpuscular Hemoglobin 28.6 PG (26-34); Mean Corpuscular Volume 84.9 fL (80-100); Monocytes Absolute Auto 1000 /uL (0-900); Monocytes Percent Auto 8.2 % (3-14); Neutrophils Absolute Auto 9900 /uL (1500-7000); Neutrophils Percent Auto 82.4 % (50-75); Platelet Count 364 X10^3/uL (150-400); Red Blood Cell Count 3.64 X10^6/uL (4.0-5.2); Red Cell Distribution Width 14.3 % (11.6-14.8)
[2022-11-26 14:53] LABS: INR 1.4 (0.9-1.3); Prothrombin Time 16.3 SECONDS (10.1-12.7)
[2022-11-26 14:55] LABS: PTT Partial Thromboplastin Tim 34 SECONDS (26-36)
[2022-11-26 14:58] LABS: Alanine Aminotransferase 20 IU/L (<35); Albumin 3.5 g/dL (3.5-5.0); Albumin Globulin Ratio 1.1 (1.0-2.8); Alkaline Phosphatase 280 U/L (38-126); Aspartate Aminotransferase 42 IU/L (14-36); BUN Creatinine Ratio 29.1 (6-22); Bilirubin Total 0.3 mg/dL (0.2-1.3); Blood Urea Nitrogen 16 mg/dL (7-17); Carbon Dioxide 36 mmol/L (22-32); Chloride 96 mmol/L (98-107); Creatine Kinase < 20 U/L (30-135); Estimated Glomerular Filt Rate > 60 mL/min (>60); Globulin 3.1 g/dL (1.7-4.1); Glucose 104 mg/dL (80-110); HEMOLYSIS < 15 (0-50); Lipase 76 U/L (23-300); Magnesium 1.2 mg/dL (1.6-2.3); Potassium 3.6 mmol/L (3.4-5.1); Sodium 134 mmol/L (137-145); Total Protein 6.6 g/dL (6.3-8.2)
[2022-11-26 15:08] LABS: Troponin I < 0.012 ng/mL (0.01-0.034)
--- NOTE | 2022-11-26 15:12 | ED.WEAKNESS ---
HPI - Weakness General Chief complaint: Weakness Stated complaint: weakness Time Seen by Provider: 11/26/22 15:02 Source: patient and EMS Mode of arrival: EMS History of Present Illness HPI Narrative: 82-year-old female with recent diagnosis of stage IV lung cancer, anticoagulated on apixaban, dyslipidemia, hypertension, atrial fibrillation history. Patient is present with her family. Patient has no complaints but has been increasingly weak over the past 7 days. They were trying to go to the hospital for a lab draw and patient was unable to get into the car. Daughter states it has been increasingly difficult for her to get in and out of chairs, not of bed. EMS was contacted patient was brought here. Patient's temperature is 99? F are maximum temperature at home, she denies headache, neck pain, no chest pain or shortness of breath. Daughter knows little increased work of breathing when she exerts herself. No nausea or vomiting she has had decreased appetite, she is drinking fluids but not taking solids. No diarrhea or constipation today. She has had some constipation is taking medication for this. She is got some chronic urinary incontinence usually can make it to the bathroom during the daytime but has not been noticing that she needs to urinate during the daytime lately. No new swelling of extremities. Patient diagnosis occurred after breaking her femur, having additional workup and being found to have lung cancer. She is in process of getting set up for treatment at [facility], they have not started actual treatments. Patient denies any recent surgeries. Reported allergy to sulfa. No tobacco, alcohol or illicit. Patient's primary care was [facility] but they are changing over to [facility] and Romy Roth. Patient is accompanied by her daughter. Patient has been living at home but requiring increasing assistance. Related Data Home Medications Medication Instructions Recorded Confirmed atorvastatin 10 mg tablet 10 mg PO QAM 09/20/22 11/26/22 apixaban 5 mg tablet (Eliquis) 2.5 mg PO BID 11/26/22 11/26/22 lisinopril 20 mg tablet 20 mg PO DAILY 11/26/22 11/26/22 metoprolol succinate 50 mg 50 mg PO BID 11/26/22 11/26/22 tablet,extended release 24 hr Allergies Allergy/AdvReac Type Severity Reaction Status Date / Time Sulfa (Sulfonamide Allergy Verified 08/15/23 13:09 Antibiotics) Review of Systems Review of Systems ROS Unobtainable: All systems reviewed & are unremarkable except as noted in HPI and below Patient History Medical History Dyslipidemia Essential hypertension History of bladder cancer Surgical History History of appendectomy Family History Father CVA (cerebral vascular accident) Mother Diabetes mellitus Social History marital status: household members: family lives independently: Yes (In senior care community) caregiver/support person: No Smoking Status: Former smoker Tobacco: How many years used: 40 alcohol intake: former substance use type: does not use additional social history: Daughter lives in [place]. Smoking Status: Former smoker alcohol intake frequency: 0-2 drinks per day Alcohol type: wine Substance Use Type: does not use Exam Narrative Exam Narrative: GEN: well nourished, well appearing female, alert and oriented x 3, patient appears to be in mild distress. HEENT: Atraumatic, pupils are equal round reactive to light, extraocular movements are intact, nares are clear, there is no conjunctival pallor. Throat is clear without any exudates, erythema, tonsillar enlargement or uvular deviation HEART: Regular rate and rhythm without murmur, clicks, rubs. LUNGS:Lungs clear to auscultation, no wheezes, rales, crackles, chest moves symmetrically ABD:bowel sounds normal, soft, non-tender, no guarding, rebound, rigidity, no masses noted, no hepatosplenomegaly :No CVA tenderness MSCL: Non-tender, no muscle atrophy, general global weakness, equal movement bilaterally NEURO:CN 2-12 intact, sensation normal SKIN: No rash, erythema or other changes appreciated. Initial Vital Signs Initial Vital Signs: Vital Signs Pulse Rate 58 L 11/26/22 13:07 Respiratory Rate 29 H 11/26/22 13:07 Blood Pressure 157/97 H 11/26/22 13:07 Pulse Oximetry 95 11/26/22 13:07 Course Orders Ordered: Acetaminophen (Acetaminophen 325 Mg Tablet) 650 mg PO Q6H NUBIA Last Admin: 11/27/22 05:57 Dose: 650 mg Documented By: Admin: 11/27/22 00:05 Dose: Not Given Documented By: Admin: 11/26/22 17:25 Dose: 650 mg Documented By: BT Apixaban (Apixaban 5 Mg Tablet) 2.5 mg PO BID [facility] Last Admin: 11/26/22 20:27 Dose: 2.5 mg Documented By: TLS Sodium Chloride (Normal Saline 0.9%) 1,000 mls @ 150 mls/hr IV CONT [facility] Last Admin: 11/27/22 06:05 Dose: 150 mls/hr Documented By: Infusion: 11/27/22 06:05 Dose: 150 mls/hr Documented By: Admin: 11/26/22 23:54 Dose: 150 mls/hr Documented By: Infusion: 11/26/22 23:54 Dose: 150 mls/hr Documented By: Admin: 11/26/22 17:26 Dose: 150 mls/hr Documented By: BT Metoprolol Succinate (Metoprolol Er 50 Mg Tablet) 50 mg PO BID [facility] Last Admin: 11/26/22 20:27 Dose: 50 mg Documented By: TLS Naloxone HCl (Naloxone 0.4 Mg/Ml Vial) 0.2 mg IV Q2MIN PRN PRN Reason: Opiate Reversal Ondansetron HCl (Ondansetron 4 Mg/2 Ml Inj) 4 mg IV Q8HR PRN PRN Reason: Nausea And Vomiting Discontinued Medications Furosemide (Furosemide 40 Mg/4 Ml Vial) 40 mg IV NOW ONE Stop: 11/26/22 15:44 Last Admin: 11/26/22 16:24 Dose: 40 mg Documented By: NR Heparin Sodium (Porcine) (Heparin 5,000 Unit/Ml Vial) 5,000 unit SUBCUT BID [facility] Sodium Chloride (Normal Saline 0.9%) 1,000 mls @ 1,000 mls/hr IV BOLUS ONE Stop: 11/26/22 16:08 Last Admin: 11/26/22 15:21 Dose: 1,000 mls/hr Documented By: NR Magnesium Sulfate (Magnesium Sulfate) 2 gm in 50 mls @ 25 mls/hr IV NOW ONE Stop: 11/26/22 19:05 Last Infusion: 11/26/22 19:26 Dose: 0 mls/hr Documented By: CT Co-signed By: TLS Admin: 11/26/22 17:25 Dose: 25 mls/hr Documented By: [email or web address] Co-signed By: COURTNEY Vital Signs Vital signs: Vital Signs - 8 hr 11/26/22 13:09 Temperature 97.6 F Pulse Rate 59 L Respiratory Rate 25 H Blood Pressure 157/97 H Pulse Oximetry 95 Oxygen Delivery Method Room Air MDM - Weakness Lab Data 11/27/22 05:28 11/27/22 05:28 Labs: Lab Results 11/26/22 11/26/22 11/26/22 Range/Units 14:30 14:30 14:30 WBC 12.0 H (4.5-11.0) X10^3/uL RBC 3.64 L (4.0-5.2) X10^6/uL Hgb 10.4 L (12.0-16.0) g/dL Hct 30.9 L (36-46) % MCV 84.9 (80-100) fL MCH 28.6 (26-34) PG MCHC 33.7 (30-36) % RDW 14.3 (11.6-14.8) % Plt Count 364 (150-400) X10^3/uL Neut % (Auto) 82.4 H (50-75) % Lymph % (Auto) 8.6 L (25-40) % [place] % (Auto) 8.2 (3-14) % Eos % (Auto) 0.3 L (2-4) % Baso % (Auto) 0.5 (0-2) % Neut # (Auto) 9900 H (8019-5797) /uL Lymph # (Auto) 1000 L (9729-7138) /uL [place] # (Auto) 1000 H (0-900) /uL Eos # (Auto) 0 (0-450) /uL Baso # (Auto) 100 (0-100) /uL PT 16.3 H (10.1-12.7) SECONDS INR 1.4 H (0.9-1.3) APTT 34 (26-36) SECONDS Sodium 134 L (137-145) mmol/L Potassium 3.6 (3.4-5.1) mmol/L Chloride 96 L (98-107) mmol/L Carbon Dioxide 36 H (22-32) mmol/L BUN 16 (7-17) mg/dL Creatinine 0.55 (0.52-1.04) mg/dL Estimated GFR > 60 (>60) mL/min BUN/Creatinine Ratio 29.1 H (6-22) Glucose 104 (80-110) mg/dL Calcium 12.8 H* (8.4-10.2) mg/dL Phosphorus (2.8-4.1) mg/dL Magnesium 1.2 L (1.6-2.3) mg/dL Total Bilirubin 0.3 (0.2-1.3) mg/dL AST 42 H (14-36) IU/L ALT 20 (<35) IU/L Alkaline Phosphatase 280 H (38-126) U/L Total Creatine Kinase < 20 L (30-135) U/L Troponin I < 0.012 (0.01-0.034) ng/mL Total Protein 6.6 (6.3-8.2) g/dL Albumin 3.5 (3.5-5.0) g/dL Globulin 3.1 (1.7-4.1) g/dL Albumin/Globulin Ratio 1.1 (1.0-2.8) Lipase 76 (23-300) U/L 11/26/22 Range/Units 14:30 WBC (4.5-11.0) X10^3/uL RBC (4.0-5.2) X10^6/uL Hgb (12.0-16.0) g/dL Hct (36-46) % MCV (80-100) fL MCH (26-34) PG MCHC (30-36) % RDW (11.6-14.8) % Plt Count (150-400) X10^3/uL Neut % (Auto) (50-75) % Lymph % (Auto) (25-40) % [place] % (Auto) (3-14) % Eos % (Auto) (2-4) % Baso % (Auto) (0-2) % Neut # (Auto) (0081-8855) /uL Lymph # (Auto) (5536-5016) /uL [place] # (Auto) (0-900) /uL Eos # (Auto) (0-450) /uL Baso # (Auto) (0-100) /uL PT (10.1-12.7) SECONDS INR (0.9-1.3) APTT (26-36) SECONDS Sodium (137-145) mmol/L Potassium (3.4-5.1) mmol/L Chloride (98-107) mmol/L Carbon Dioxide (22-32) mmol/L BUN (7-17) mg/dL Creatinine (0.52-1.04) mg/dL Estimated GFR (>60) mL/min BUN/Creatinine Ratio (6-22) Glucose (80-110) mg/dL Calcium (8.4-10.2) mg/dL Phosphorus 2.5 L (2.8-4.1) mg/dL Magnesium (1.6-2.3) mg/dL Total Bilirubin (0.2-1.3) mg/dL AST (14-36) IU/L ALT (<35) IU/L Alkaline Phosphatase (38-126) U/L Total Creatine Kinase (30-135) U/L Troponin I (0.01-0.034) ng/mL Total Protein (6.3-8.2) g/dL Albumin (3.5-5.0) g/dL Globulin (1.7-4.1) g/dL Albumin/Globulin Ratio (1.0-2.8) Lipase (23-300) U/L Imaging Data Chest x-ray: Radiologist Impression: Dr. Sandhu called patient has suspected lung cancer on x-ray. ECG Data Attestation: I personally reviewed and interpreted this ECG as follows: Interpretation: Sinus bradycardia premature atrial complexes rate of 56 [place] 160 QRS 86 QTC 384. No acute ST elevation depression noted. MDM Narrative Medical decision making narrative: This is an 82-year-old female who presents with complaint of generalized weakness, patient herself does not have 100 complaints but daughter notes change. Patient has not had any other infectious symptoms, possible UTI she is had some increasing incontinence during the daytime. She has known lung cancer which is present, white cells are 12 today hemoglobin is 10 which appears consistent with priors, platelets are appropriate. Leftward shift. No bandemia. INR is 1.4, sodium is 134 CO2 is 36 with normal BUN and creatinine, calcium is 12.8, eggs at 1.2, AST is 42 with an ALT 20 alk-phos 280, normal troponin. Patient's symptoms do seem consistent with hypercalcemia still attempting to obtain urine sample. Patient was given fluids, Lasix for hypercalcemia. Case was discussed with Dr. Burnett, hospitalist: Accept for inpatient admission. Discharge Plan Departure Patient Disposition: Admitted As Inpatient Clinical Impression: Hypercalcemia, Weakness Admit Date/Time: 11/26/22 16:00 Admit Provider: Bunny Burnett
[2022-11-26 15:14] LABS: Calcium 12.8 mg/dL (8.4-10.2)
[2022-11-26] MEDS: SODIUM CHLORIDE 0.9% 1,000 ML 1000 ML IV (15:21)
--- NOTE | 2022-11-26 16:19 | PC.NURSE ---
AIRPLANE PILOT CHIEF NOTE: burt tsai pt education provided
[2022-11-26 16:20] LABS: Phosphorous 2.5 mg/dL (2.8-4.1)
[2022-11-26] MEDS: FUROSEMIDE 40 MG/4 ML VIAL IV (16:24)
[2022-11-26] MEDS: ACETAMINOPHEN 325 MG TABLET 650 MG PO (17:25)
[2022-11-26] MEDS: MAGNESIUM SULFATE 2 GM/50 ML PIGGYBACK IV (17:25)
[2022-11-26] MEDS: SODIUM CHLORIDE 0.9% 1,000 ML 150 ML IV ×2 (17:26→23:54)
--- NOTE | 2022-11-26 18:21 | P.HP_ITS ---
History of Present Illness History of Present Illness Date Patient Seen: 11/26/22 Time Patient Seen: 18:00 Chief complaint: weakness Narrative: Ms. Sylvester is an 82W with PMH metastatic lung cancer, afib on eliquis, htn, recent fall and pathologic left femur fracture who presents with confusion and weakness. She had been sent to rehab after last admission a couple months ago. She was back at home with family. Over the last few days especially they have noted she is weaker, poor appetite, and disoriented. The patient tries to provide history, but according to family she is not completely coherent currently. She has some left leg pain in the quad that has worsened over the last few days. No worsening shortness of breath. No fevers. She does have a consistent mild cough. In the ED workup was done, vitals notable for afebrile, heart rate 50s, respiratory rate 20s, blood pressure 150s/90s. Labs reviewed by me and notable for WBC 12.0, hgb 10.4, plts 364. Na 134, creatinine 0.55. Ca 12.8. trop negative. Ca 12.8. UA showed no acute abnormality. Chest xray showed known lung cancer. She was ordered for IV fluids and lasix and admitted for further treatment. [facility] Medical History Dyslipidemia Essential hypertension History of bladder cancer Surgical History History of appendectomy Family History Father CVA (cerebral vascular accident) Mother Diabetes mellitus Social History marital status: household members: family lives independently: Yes (In senior care community) caregiver/support person: No Smoking Status: Former smoker Tobacco: How many years used: 40 alcohol intake: former substance use type: does not use additional social history: Daughter lives in [place]. Meds Home Medications and Allergies Home Medications Medication Instructions Recorded Confirmed Type atorvastatin 10 mg tablet 10 mg PO QAM 09/20/22 11/26/22 History apixaban 5 mg tablet (Eliquis) 2.5 mg PO BID 11/26/22 11/26/22 History lisinopril 20 mg tablet 20 mg PO DAILY 11/26/22 11/26/22 History metoprolol succinate 50 mg 50 mg PO BID 11/26/22 11/26/22 History tablet,extended release 24 hr Allergies Allergy/AdvReac Type Severity Reaction Status Date / Time Sulfa (Sulfonamide Allergy Verified 11/26/22 13:09 Antibiotics) Review of Systems Review of Systems Narrative: 14 systems reviewed and negative aside from what is noted in HPI Exam Vital Signs (past 8 hours): - 11/26/22 13:09 11/26/22 13:07 11/26/22 13:07 Temperature 97.6 F Pulse Rate 59 L 58 L Respiratory Rate 25 H 29 H Blood Pressure 157/97 H 157/97 H Pulse Oximetry 95 95 Oxygen Delivery Method Room Air Oxygen Flow Rate 11/26/22 13:30 11/26/22 14:00 11/26/22 14:00 Temperature Pulse Rate 57 L 60 Respiratory Rate 24 23 Blood Pressure 147/74 H Pulse Oximetry 94 Oxygen Delivery Method Oxygen Flow Rate 11/26/22 14:30 11/26/22 15:00 11/26/22 15:00 Temperature Pulse Rate 64 60 Respiratory Rate 33 H 24 Blood Pressure 181/81 H Pulse Oximetry 94 93 Oxygen Delivery Method Oxygen Flow Rate 11/26/22 15:30 11/26/22 15:30 11/26/22 16:00 Temperature Pulse Rate 65 Respiratory Rate 22 Blood Pressure 170/84 H 188/86 H Pulse Oximetry 94 Oxygen Delivery Method Oxygen Flow Rate 11/26/22 16:00 11/26/22 16:30 11/26/22 16:30 Temperature Pulse Rate 61 62 Respiratory Rate 21 27 H Blood Pressure 174/87 H Pulse Oximetry 94 95 Oxygen Delivery Method Oxygen Flow Rate 11/26/22 17:30 11/26/22 18:00 Temperature 97.1 F L Pulse Rate 65 Respiratory Rate 18 Blood Pressure 172/67 H Pulse Oximetry 98 Oxygen Delivery Method Room Air Oxygen Flow Rate 0 Oxygen Delivery Method Room Air Oxygen Flow Rate 0 Narrative Exam Narrative: GEN: no acute distress CV: regular rate and rhythm, no murmurs PULM: clear bilaterally ABD: soft, nontender, nondistended EXT: warm and well perfused, stiffened ankles, pain in left quad region of leg NEURO: slow speech, slight confusion, trembling jaw Objective Labs 11/26/22 14:30 08/15/23 14:30 Labs: Laboratory Results - last 24 hr 11/26/22 11/26/22 11/26/22 14:30 14:30 14:30 WBC 12.0 H RBC 3.64 L Hgb 10.4 L Hct 30.9 L MCV 84.9 MCH 28.6 MCHC 33.7 RDW 14.3 Plt Count 364 Neut % (Auto) 82.4 H Lymph % (Auto) 8.6 L [place] % (Auto) 8.2 Eos % (Auto) 0.3 L Baso % (Auto) 0.5 Neut # (Auto) 9900 H Lymph # (Auto) 1000 L [place] # (Auto) 1000 H Eos # (Auto) 0 Baso # (Auto) 100 PT 16.3 H INR 1.4 H APTT 34 Sodium 134 L Potassium 3.6 Chloride 96 L Carbon Dioxide 36 H BUN 16 Creatinine 0.55 Estimated GFR > 60 BUN/Creatinine Ratio 29.1 H Glucose 104 Calcium 12.8 H* Phosphorus Magnesium 1.2 L Total Bilirubin 0.3 AST 42 H ALT 20 Alkaline Phosphatase 280 H Total Creatine Kinase < 20 L Troponin I < 0.012 Total Protein 6.6 Albumin 3.5 Globulin 3.1 Albumin/Globulin Ratio 1.1 Lipase 76 11/26/22 14:30 WBC RBC Hgb Hct MCV MCH MCHC RDW Plt Count Neut % (Auto) Lymph % (Auto) [place] % (Auto) Eos % (Auto) Baso % (Auto) Neut # (Auto) Lymph # (Auto) [place] # (Auto) Eos # (Auto) Baso # (Auto) PT INR APTT Sodium Potassium Chloride Carbon Dioxide BUN Creatinine Estimated GFR BUN/Creatinine Ratio Glucose Calcium Phosphorus 2.5 L Magnesium Total Bilirubin AST ALT Alkaline Phosphatase Total Creatine Kinase Troponin I Total Protein Albumin Globulin Albumin/Globulin Ratio Lipase Assessment & Plan Assessment & Plan narrative: 1. Acute weakness and encephalopathy suspect from hypercalcemia -initial calcium 12.8, with albumin 3.2 -suspect hypercalcemia secondary to lung malignancy -check PTH -repeat calcium in AM -for now will try lowering with IV fluids -on discharge may need calcium lowering medication given that lung cancer is not yet treated 2. Hypomagmesemia -suspect secondary to poor oral intake -replete with mag riders -consider supplement on discharge 3. Atrial fibrillation -rate controlled -continue metoprolol, and apixaban 4. Recent femur fracture -PT consult 5. Metastatic lung cancer -following at [facility] -plan is to start treatment within next couple weeks I have obtained history and discussed plan with patient and family. I have discussed plan of care with ED physician and bedside nurse. I have reviewed labs, imaging CODE: Full Proxy: Kathy Leal, daughter Quality VTE Deep Vein Thrombosis/Pulmonary Embolism Present on Admission: No MIPS - Meds 'Current medications' to include all prescriptions, [id number] products, herbals, cannabis/cannabidiol products, and vitamin/mineral/dietary (nutritional) supplements. I have utilized all available resources to obtain, update, or review the patient?s current medications. [If Yes, STOP here]: Yes
[2022-11-26] MEDS: METOPROLOL ER 50 MG TABLET PO (20:27)
[2022-11-26] MEDS: APIXABAN 5 MG TABLET 2.5 MG PO (20:27)
[2022-11-27] VITALS (7 sets, daily range): BP systolic 147–175; BP diastolic 72–98; PULSE 57–64; RESP 16–20; TEMP 36.3–37.3; O2SAT 93–96
[2022-11-27] MEDS: ACETAMINOPHEN 325 MG TABLET 650 MG PO ×2 (05:57→16:58)
[2022-11-27] MEDS: SODIUM CHLORIDE 0.9% 1,000 ML 150 ML IV ×3 (06:05→23:00)
[2022-11-27 06:08] LABS: Add Manual Diff / Slide Review NO; Basophils Absolute Auto 0 /uL (0-100); Basophils Percent Auto 0.5 % (0-2); Eosinophils Absolute Auto 100 /uL (0-450); Eosinophils Percent Auto 0.5 % (2-4); Hematocrit 34.5 % (36-46); Hemoglobin 11.4 g/dL (12.0-16.0); Lymphocytes Absolute Auto 900 /uL (1100-4500); Lymphocytes Percent Auto 8.9 % (25-40); Mean Corpuscular HGB Conc 33.2 % (30-36); Mean Corpuscular Hemoglobin 28.2 PG (26-34); Monocytes Absolute Auto 800 /uL (0-900); Monocytes Percent Auto 7.8 % (3-14); Neutrophils Absolute Auto 8500 /uL (1500-7000); Neutrophils Percent Auto 82.3 % (50-75); Platelet Count 376 X10^3/uL (150-400); Red Blood Cell Count 4.06 X10^6/uL (4.0-5.2); Red Cell Distribution Width 13.7 % (11.6-14.8); White Blood Cell Count 10.3 X10^3/uL (4.5-11.0)
[2022-11-27 06:25] LABS: BUN Creatinine Ratio 27.7 (6-22); Blood Urea Nitrogen 13 mg/dL (7-17); Calcium 12.1 mg/dL (8.4-10.2); Carbon Dioxide 33 mmol/L (22-32); Chloride 99 mmol/L (98-107); Estimated Glomerular Filt Rate > 60 mL/min (>60); Glucose 96 mg/dL (80-110); HEMOLYSIS < 15 (0-50); Magnesium 1.4 mg/dL (1.6-2.3); Potassium 3.4 mmol/L (3.4-5.1); Sodium 137 mmol/L (137-145)
[2022-11-27] MEDS: METOPROLOL ER 50 MG TABLET PO ×2 (10:43→21:59)
[2022-11-27] MEDS: POTASSIUM CHLORIDE 20 MEQ TAB 40 MEQ PO (10:43)
[2022-11-27] MEDS: APIXABAN 5 MG TABLET 2.5 MG PO ×2 (10:43→22:00)
[2022-11-27] MEDS: MAGNESIUM CHLORIDE 64 MG TABLET 128 MG PO (10:47)
--- NOTE | 2022-11-27 12:42 | PT.IIE ---
Current Diagnoses Hypercalcemia (11/26/22) Surgical History (Last Reviewed 11/26/22 @ 18:21 by Bnuny Burnett MD) History of appendectomy Medical History (Last Reviewed 11/26/22 @ 18:21 by Bunny Burnett MD) Dyslipidemia Essential hypertension History of bladder cancer Physical Therapy Inpatient Evaluation/Re-Eval M1 PT/OT-IP Prior Functional Status Start: 11/27/22 08:02 Freq: NEEDED Status: Active Protocol: Document 11/27/22 11:40 MB (Rec: 11/27/22 12:42 MB [id number]) Medical Review Prior Functional Status Medical History Reviewed Yes Communication Unsure what diet she had SUPERVISOR FELLING BUCKING Mobility and Gait Daughter reports up with RW and assistance up to a block distance of gait since d/c SNF but recently has required heavier assistance Activities of Daily Living and IADL's Assistance from family for ADLs Social History Household Members family Living Arrangements House Number of Floors (Floors) One Floor Number of Stairs To Enter/Railing? No steps to enter Home Environment High Toilet Home Equipment Front Wheel Walker,Quad Cane, Straight Cane,Raised Toilet Seat w/Armrests Employment Status Retired Additional Social History Comment Daughter states that pt is to get started with immunotherapy treatment at the [facility] in [place] and they do not know where her d/c should be from the hospital. Options are back to patient's home with family assistance in [place] or to facility or daughter's house in [place]. M2 PT-IP Current Condition Start: 11/27/22 08:02 Freq: NEEDED Status: Active Protocol: Document 11/27/22 11:40 MB (Rec: 11/27/22 12:42 MB [id number]) Physical Therapy Current Condition Current Condition Evaluation Date 11/27/22 Treatment Diagnosis Weakness M3 PT-IP Subjective Start: 11/27/22 08:02 Freq: NEEDED Status: Active Protocol: Document 11/27/22 11:40 MB (Rec: 11/27/22 12:42 MB [id number]) Subjective Physical Therapy Visit Type Type Initial Evaluation Visit Start Time 11:40 Visit Stop Time 12:24 Total Visit Minutes 44 Number of SUPERVISOR FELLING BUCKING Visits 0 Physical Therapy Visit Comments Patient Comments Pt states that she does not have any pain in bed and daughter reports that pt often has pain and does not report it to providers. Patient Goals They are unsure of goal except that daughter wishes pt to start treatment at the [facility]. Therapy Pain Assessment Pain When Pain Assessed During Mobility Pain Present Pain Present Pain Reported Location Left Hip Intensity 8 Scale Used Malone-Johnson (Faces) Pain Behaviors Facial Grimacing,Guarding Pain Management Techniques Re-positioning M4 PT-IP Mobility and Gait Start: 11/27/22 08:02 Freq: NEEDED Status: Active Protocol: Document 11/27/22 11:40 MB (Rec: 11/27/22 12:42 MB [id number]) PT-Bed Mobility Assessment Supine to Sit Supine to Sit Minimal Assistance,1 Person Assistance,Head of Bed Elevated,Bedrails Scooting Scooting to Edge of Bed Minimal Assistance Scooting Up and Down in Bed Minimal Assistance PT-Transfer Assessment Sit to and From Stand Sit to and from Stand Maximum Assistance,1 Person Assistance,Use of Upper Extremities Equipment Transfer Assistive Device Gait Belt,Front Wheeled Walker Orthotic/Prosthetic Devices or Brace: No Comments Mobility Comments Heavy posterior lean with legs against the bed and pt requires max A for transfer and standing balance and use of RW Gait Assessment Gait Gait Assistance Required: Maximum Assistance,1 Person Assist Distance (Feet) 1 Able to Maintain Weight Bearing Status Yes During Gait Assistive Devices Assistive Device Gait Belt,Front Wheeled Walker Orthotic/Prosthetic Devices or Brace: No Gait Deviations General Gait Pattern Antalgic,Decreased Stride Length,Decreased Feet Clearance,Flexed Trunk,Lateral Trunk Lean,Step-to Gait Factors Limiting Gait Function Factors Limiting Gait Function Decreased Activity Tolerance, Decreased Strength,Limited Range of Motion,Pain,Poor Balance,Poor Safety Awareness Comments Gait Comments Pt has trouble tolerating WB on LLE and her ankle is inverted and she has increased PF tension/tone on left greater than right foot. PT attempts to check for clonus and this is difficult d/t tone . Daughter shows PT most recent CT report and pt has metastatic changes to thoracic spine, T4 and many other positive findings in chest, lungs and around heart. PT-Balance Assessment Sitting Balance and Reactions Static Sitting Balance Ability Poor Dynamic Sitting Balance Ability Poor Standing Balance and Reactions Static Standing Balance Ability Poor Dynamic Standing Balance Ability Poor Device Used RW M5 PT-IP Objective Assessments Start: 11/27/22 08:02 Freq: NEEDED Status: Active Protocol: Document 11/27/22 11:40 MB (Rec: 11/27/22 12:42 MB [id number]) Orientation Orientation/Cognition Level of Alertness Alert Orientation Name Safety Awareness Decreased Safety Awareness Memory Description Short Term Impaired,Weather Strip Installer Impaired Comments Pt does not answer many questions with PT and daughter tends to answer questions Gross Range of Motion Upper Extremity ROM Impairments Defer to OT Lower Extremity ROM Assessment Bilaterally Impaired Impairments Pt cannot tolerate range or MMT either leg and has more changes in LLE Strength Lower Extremity Strength Assessment Bilaterally Impaired Comments Strength Comments Inversion and PF contracture left ankle and increased tone right PFs as well. Grossly moves right LE WFLs and pt has limited range and strength in LLE. Spoke with MD and he to consider another diagnostic of LLE given mobility changes after daugther states that pt bothered her LLE with hitting it against the end of the bed recently. Sensation Assessment Comments Sensation Comments Pt cannot respond to sensory commands M7 PT-IP Assessment and Plan Start: 11/27/22 08:02 Freq: NEEDED Status: Active Protocol: Document 11/27/22 11:40 MB (Rec: 11/27/22 12:42 MB [id number]) PT Summary Assessment and Plan Potential Rehabilitation Potential Poor Status of Condition at Evaluation Unstable Summary Impairments Pain,ROM,Strength,Balance,Tone ,Cognition,Bed Mobility, Transfers,Gait,Activity Tolerance Progress Towards Goals Slow Progress due to Medical Issues Assessment Summary Pt is an 82 y/o female with metastatic lung cancer to heart and thoracic spine at least per CT chest report PT reads from daughter's phone results from the [facility] today. Pt presents with left greater than right LE tone in ankle and poor positioning of left ankle and she might have changes in leg strength and tone from her thoracic spine as well as from decreased mobility. She requires increased time and min A for bed mobility and heavy max A for transfer and to take steps from bed to chair today. Overall, pt is frail appearing and has decreased activity tolerance with pain with WB on LLE and being upright. PT spoke with doctor about findings. Pain could be a combination of cancer pain, bony mets to thoracic spine and issues with LLE. Pt and daughter are not clear about disposition goal but daughter planned for pt to start immunotherapy at the [facility] in [place]. Goals Bed Mobility Goal Contact Guard Assistance Transfer Goal Minimal Assistance,Front Wheeled Walker Gait Goal Minimal Assistance,Front Wheel Walker Gait Distance 15 Days to Meet Goals 5 Frequency of Treatment Frequency Of Treatment Once a Day Treatment Plan Physical Therapy Treatment Plan Bed Mobility Training,Transfer Training,Gait Training, Therapeutic Exercise,Balance Retraining,Neuromuscular Re-ed Weight Bearing Status Weight Bearing Status Weight Bear as Tolerated Recommendations To Nursing Amount of Assist Needed Mechanical Lift Discharge Recommendations PT Discharge Recommendations Home with 04/11 Assist Available,Home vs SNF Transportation Needs at Discharge Wheelchair/Cabulance
--- NOTE | 2022-11-27 12:49 | DI.RAD.S_ITS ---
PROCEDURE: XR FEMUR LT MIN 2V INDICATIONS: thigh pain TECHNIQUE: 2 views of the femur were acquired. COMPARISON: [facility], CR, XR HIP W PEL IF DONE LT 2V, 09/19/2022, 22:02. [facility], CR, XR FEMUR LT MIN 2V, 09/20/2022, 15:22. FINDINGS: Bones: Intramedullary thomas and screw fixation of the femur, without hardware complication. There is reactive bony formation about the proximal shaft fracture, with bony lucency. Soft tissues: No suspicious soft tissue calcifications or masses. IMPRESSION: Bony lucency of the mid femur shaft, with reactive bone formation. Underlying bone mass is not entirely excluded based on this appearance. Consider CT or MRI with contrast. Dictated by: Ethan Astorga M.D. on 11/27/2022 at 14:28 Approved by: Ethan Astorga M.D. on 11/27/2022 at 14:30
--- NOTE | 2022-11-27 12:49 | PM.PN.1 ---
Subjective Subjective Interval history: Pain in the left thigh. No chest pain or dyspnea. She is more mentally clear today. She has had a functional decline over 2-3 weeks. Exam Vital Signs (past 8 hours): - 11/27/22 09:27 11/27/22 10:43 Temperature 98.3 F Pulse Rate 58 L 64 Respiratory Rate 16 Blood Pressure 156/88 H 147/72 H Pulse Oximetry 94 Oxygen Flow Rate 0 Oxygen Delivery Method Room Air Oxygen Flow Rate 0 Narrative Exam Narrative: NAD Lungs clear CV regular without murmur. Abdomen non-distended. No leg edema. Thigh (left) tender mid thigh. Objective Labs 11/27/22 05:28 11/27/22 05:28 Labs: Laboratory Results - last 24 hr 11/26/22 11/26/22 11/26/22 14:30 14:30 14:30 WBC 12.0 H RBC 3.64 L Hgb 10.4 L Hct 30.9 L MCV 84.9 MCH 28.6 MCHC 33.7 RDW 14.3 Plt Count 364 Neut % (Auto) 82.4 H Lymph % (Auto) 8.6 L Wharton % (Auto) 8.2 Eos % (Auto) 0.3 L Baso % (Auto) 0.5 Neut # (Auto) 9900 H Lymph # (Auto) 1000 L Wharton # (Auto) 1000 H Eos # (Auto) 0 Baso # (Auto) 100 PT 16.3 H INR 1.4 H APTT 34 Sodium 134 L Potassium 3.6 Chloride 96 L Carbon Dioxide 36 H BUN 16 Creatinine 0.55 Estimated GFR > 60 BUN/Creatinine Ratio 29.1 H Glucose 104 Calcium 12.8 H* Phosphorus Magnesium 1.2 L Total Bilirubin 0.3 AST 42 H ALT 20 Alkaline Phosphatase 280 H Total Creatine Kinase < 20 L Troponin I < 0.012 Total Protein 6.6 Albumin 3.5 Globulin 3.1 Albumin/Globulin Ratio 1.1 Lipase 76 11/26/22 11/27/22 11/27/22 14:30 05:28 05:28 WBC 10.3 RBC 4.06 Hgb 11.4 L Hct 34.5 L MCV 85.0 MCH 28.2 MCHC 33.2 RDW 13.7 Plt Count 376 Neut % (Auto) 82.3 H Lymph % (Auto) 8.9 L Wharton % (Auto) 7.8 Eos % (Auto) 0.5 L Baso % (Auto) 0.5 Neut # (Auto) 8500 H Lymph # (Auto) 900 L Wharton # (Auto) 800 Eos # (Auto) 100 Baso # (Auto) 0 PT INR APTT Sodium 137 Potassium 3.4 Chloride 99 Carbon Dioxide 33 H BUN 13 Creatinine 0.47 L Estimated GFR > 60 BUN/Creatinine Ratio 27.7 H Glucose 96 Calcium 12.1 H Phosphorus 2.5 L Magnesium 1.4 L Total Bilirubin AST ALT Alkaline Phosphatase Total Creatine Kinase Troponin I Total Protein Albumin Globulin Albumin/Globulin Ratio Lipase PFSH Medical History Dyslipidemia Essential hypertension History of bladder cancer Surgical History History of appendectomy Family History Father CVA (cerebral vascular accident) Mother Diabetes mellitus Social History marital status: household members: family lives independently: Yes (In nursing home community) caregiver/support person: No Smoking Status: Former smoker Tobacco: How many years used: 40 alcohol intake: former substance use type: does not use additional social history: Daughter lives in [place]. Assessment & Plan Assessment & Plan narrative: 1. Acute weakness and encephalopathy suspect from hypercalcemia and metastatic cancer, POA. -initial calcium 12.8, with albumin 3.2 -suspect hypercalcemia secondary to lung malignancy -check PTH -repeat calcium in AM -for now will try lowering with IV fluids -on discharge may need calcium lowering medication given that lung cancer is not yet treated -will add calcitonin today. 2. Hypomagmesemia, POA and improved. -suspect secondary to poor oral intake -replete with mag riders -consider supplement on discharge 3. Hypovolemic hyponatremia, POA. -IVF (saline) and follow. 4. Left acute mid thigh pain, POA. - Xray left femur. 5. Atrial fibrillation, chronic. POA and stable. -rate controlled -continue metoprolol, and apixaban 6. Recent femur fracture, POA and stable. -PT consult 7. Metastatic lung cancer, POA. -following at [facility] -plan is to start treatment within next couple weeks -treatment is palliative. She lives in [place] and all children in [place]. [facility] is where she is getting care. Discussed options of no treatment and hospice as possibilities. Time Spent With Patient Time with patient: 30 to 49 minutes with 50% spent counseling/coordinating care Quality VTE Deep Vein Thrombosis/Pulmonary Embolism Present on Admission: No
--- NOTE | 2022-11-27 13:24 | OT.IPNOTE ---
Pt back in bed and getting a hip x-ray, hold OT eval until after results from hip x-ray, to see pt tomorrow.
[2022-11-27] MEDS: MAGNESIUM SULFATE 2 GM/50 ML PIGGYBACK IV (14:16)
--- NOTE | 2022-11-27 16:12 | CM.DANOTE ---
DCP Assessment Note: Patient is a 82yo Female here under inpatient status for weakness/hypercalcemia. PCP Denise Figueroa Payer Medicare and for life DIRECTOR SUMMER SESSIONS reviewed EMR. Per PT palliative care may be appropriate. Per provider, patient likely to be here for a few more days. DIRECTOR SUMMER SESSIONS entered room and introduced self and role. Patient was resting in bed and appeared A/Ox4, however, was not a super active participant in the d/c plan. Primary informant was daughter, Kathy ([phone]). Patient was d/c from [facility] to home with [facility] not too long ago. Daughter and patient's other children, who live in the [place] area, are attempting to create a fdc plan. Cancer treatment starting at [facility] in [place]. Family interested in SNF in [place]/HH in [place] if patient d/c to stay with children. Daughter reports being interested in [facility](?), SNF/ASSISTED in [place]. DIRECTOR SUMMER SESSIONS consulted ALINA Lynch for further information on SNF coordination outside of local areas. DIRECTOR SUMMER SESSIONS gave daughter senior resources booklet for caregivers in [facility] if patient were to d/c home to [place]. Plan: patient family is going to look into caregiver/ASSISTED/SNF/HH options in [place] and report back to this author tomorrow on their preference. CM team will continue to follow closely. ALINA Domínguez Discharge Planning/Care Management Advanced directive, confirm from FAMILY Start: 11/26/22 17:13 Freq: Q24H Status: Active Protocol: Document 11/26/22 17:30 BT (Rec: 11/26/22 17:59 BT [id number]) Co-signed By Lily Cain RN Advance Directive, confirm on record Time 17:59 Person contacted Pt Copy received No CM Discharge Assessment Start: 11/27/22 16:06 Freq: Status: Active Protocol: Document 11/27/22 16:06 SL (Rec: 11/27/22 16:12 SL [id number]) Discharge Planning Assessment Assigned Engineering Geologist ALINA Jeffers DPOA/Assigned Designee Name Kathy (daughter) Contact Information [phone] Advance Directives? Yes Advance Directives on File No History Provided By Patient,Family Member,Medical Record Prior Living Arrangements House Comment at [facility] for about a month and then d/c home Household Members family Type of transporation used prior to Relies on Others admit Independent with ADL's No Needs Assistance With Grooming,Meal Prep,Managing Medications,Home Chores / Shopping DME Already Rented / Owned Elevated Toilet Seat,FWW / Walker,Cane Patient/Family Preference Half-Way Facility Comment Family trying to figure out intermediate school teacher plan at this time. Patient about to start cancer treatment in [place]. Considering home with family versus SNF in [place] versus home with HH. At this time, patient and family appear to want home with caregivers Discharge Plan Home Transportation Arrangement PT rec wheelchair/cabulance. Pending family decision. SNF/HH Preference Utilizes [facility] currently Whiteboard Updated in Patient Room with Yes name and ext. # of Engineering Geologist Review Status In Process Next Review Type Continued Stay Review
[2022-11-27] MEDS: ZOLEDRONIC ACID 4 MG in SODIUM CHLORIDE 0.9% 100 ML 315 MG IV (16:58)
[2022-11-28 02:06] VITALS: BP 180/79; PULSE 59; RESP 18; TEMP 36.7; O2SAT 95
[2022-11-28 04:10] VITALS: BP 167/82; PULSE 62; RESP 20; TEMP 36; O2SAT 93
[2022-11-28] MEDS: ACETAMINOPHEN 325 MG TABLET 650 MG PO (06:05)
[2022-11-28] MEDS: SODIUM CHLORIDE 0.9% 1,000 ML 150 ML IV (06:09)
[2022-11-28 06:37] LABS: BUN Creatinine Ratio 17.6 (6-22); Blood Urea Nitrogen 9 mg/dL (7-17); Calcium 11.1 mg/dL (8.4-10.2); Carbon Dioxide 30 mmol/L (22-32); Chloride 100 mmol/L (98-107); Estimated Glomerular Filt Rate > 60 mL/min (>60); Glucose 104 mg/dL (80-110); HEMOLYSIS < 15 (0-50); Magnesium 1.3 mg/dL (1.6-2.3); Potassium 3.3 mmol/L (3.4-5.1); Sodium 135 mmol/L (137-145)
[2022-11-28 07:40] VITALS: BP 146/60; PULSE 77; TEMP 36.7; O2SAT 96
[2022-11-28 08:47] VITALS: BP 146/60; PULSE 77
[2022-11-28] MEDS: METOPROLOL ER 50 MG TABLET PO (08:47)
[2022-11-28] MEDS: APIXABAN 5 MG TABLET 2.5 MG PO (08:48)
[2022-11-28] MEDS: POTASSIUM CHLORIDE 20 MEQ TAB 40 MEQ PO (08:48)
[2022-11-28] MEDS: MAGNESIUM SULFATE 4 GM/100 ML PIGGYBACK IV (08:49)
--- NOTE | 2022-11-28 11:50 | OT.IPNOTE ---
Per Dr. Brar, pt to go on Hospice, therefore discharge OT eval orders.
[2022-11-28 12:00] LABS: Add Manual Diff / Slide Review NO; Basophils Absolute Auto 0 /uL (0-100); Basophils Percent Auto 0.2 % (0-2); Eosinophils Absolute Auto 0 /uL (0-450); Eosinophils Percent Auto 0.2 % (2-4); Hematocrit 33.5 % (36-46); Lymphocytes Absolute Auto 300 /uL (1100-4500); Lymphocytes Percent Auto 2.7 % (25-40); Mean Corpuscular Hemoglobin 28.1 PG (26-34); Mean Corpuscular Volume 85.2 fL (80-100); Monocytes Absolute Auto 300 /uL (0-900); Monocytes Percent Auto 2.3 % (3-14); Neutrophils Absolute Auto 11600 /uL (1500-7000); Neutrophils Percent Auto 94.6 % (50-75); Platelet Count 387 X10^3/uL (150-400); Red Blood Cell Count 3.93 X10^6/uL (4.0-5.2); Red Cell Distribution Width 14.3 % (11.6-14.8); White Blood Cell Count 12.2 X10^3/uL (4.5-11.0)
[2022-11-28 12:09] LABS: Alanine Aminotransferase 19 IU/L (<35); Albumin 3.3 g/dL (3.5-5.0); Albumin Globulin Ratio 1.1 (1.0-2.8); Alkaline Phosphatase 340 U/L (38-126); Aspartate Aminotransferase 38 IU/L (14-36); BUN Creatinine Ratio 16.7 (6-22); Bilirubin Total 0.4 mg/dL (0.2-1.3); Blood Urea Nitrogen 9 mg/dL (7-17); Calcium 10.8 mg/dL (8.4-10.2); Carbon Dioxide 29 mmol/L (22-32); Chloride 103 mmol/L (98-107); Estimated Glomerular Filt Rate > 60 mL/min (>60); Globulin 3.1 g/dL (1.7-4.1); Glucose 111 mg/dL (80-110); HEMOLYSIS < 15 (0-50); Magnesium 2.4 mg/dL (1.6-2.3); Potassium 3.9 mmol/L (3.4-5.1); Sodium 136 mmol/L (137-145); Total Protein 6.4 g/dL (6.3-8.2)
--- NOTE | 2022-11-28 12:22 | PT-IP ANOTE ---
Pt is being discharged to hospice care, no longer requires PT services.
[2022-11-28] MEDS: MORPHINE 2 MG/ML INJ IV ×4 (13:32→23:31)
--- NOTE | 2022-11-28 14:04 | CM.DPC ---
Addendum entered by ALINA Domínguez 11/28/22 15:42: Sarah from can accept. Attempted to call Kathy but no answer. Can do equipment delivery tomorrow or Friday. HIDE INSPECTOR AND SORTER gave Kathy Sarah's number to set up equipment. Kathy reported she would call Sarah and set up equipment. SL Original Note: DCP Continued: HIDE INSPECTOR AND SORTER reviewed EMR. Per provider, patient is hospice appropriate and family is open to hospice. HIDE INSPECTOR AND SORTER entered room and reintroduced self and role. Patient was accompanied by daughter Kathy and son Sheng(?). Family open to [facility]. reported needing a hospital bed and bedside commode. Unsure of what other equipment they may need. HIDE INSPECTOR AND SORTER spoke with Sarah at [facility]. They have availability as soon as tomorrow to open. HIDE INSPECTOR AND SORTER faxed initial clinical information . HIDE INSPECTOR AND SORTER updated provider and family. Plan: pending Hospice set up. Currently waiting to hear back from . Likely will need transport with S. CM team will continue to follow closely. ALINA Domínguez
[2022-11-28] MEDS: LORazepam 2 MG/ML INJ 1 MG IV ×4 (14:27→23:30)
--- NOTE | 2022-11-28 16:26 | PC.NURSE ---
Status change Pt. alert and oriented x1 this AM, able to converse and take pills w/o difficulty. Pt. noted to have a change in mental status approx. 1100 including unwilling/unable to open eyes, intermittment and mumbled speech, and minimal response to noxious stimuli. Received notification from ICU that pt. had run of [place] at that time which was reported to physician along with change in mental status. VSS, repeat labs ordered with minimal change from AM labs. Physician talked with family and patient code status changed to DNR/DNI with comfort care. Tele removed, IVF stopped. Pt. given Morphine and Ativan per orders for generalized discomfort (history of chronic back and arthritic pain). Family at bedside.
--- NOTE | 2022-11-28 16:48 | PM.PN.1 ---
Subjective Subjective Interval history: Patient's family present and goals of care discussion was held for 17 minutes and comfort care was decided. PLASTIC HOSPITAL PRODUCTS ASSEMBLER consulted for hospice. Exam Vital Signs (past 8 hours): Oxygen Delivery Method Room Air Oxygen Flow Rate 0 Narrative Exam Narrative: Appears uncomfortable. Not opening eyes. Lungs clear CV regular without murmur. Abdomen non-distended. No leg edema. Objective Labs 11/28/22 11:50 11/28/22 11:50 Labs: Laboratory Results - last 24 hr 11/28/22 11/28/22 11/28/22 06:06 11:50 11:50 WBC 12.2 H RBC 3.93 L Hgb 11.0 L Hct 33.5 L MCV 85.2 MCH 28.1 MCHC 33.0 RDW 14.3 Plt Count 387 Neut % (Auto) 94.6 H Lymph % (Auto) 2.7 L Mclennan % (Auto) 2.3 L Eos % (Auto) 0.2 L Baso % (Auto) 0.2 Neut # (Auto) 27546 H Lymph # (Auto) 300 L Mclennan # (Auto) 300 Eos # (Auto) 0 Baso # (Auto) 0 Sodium 135 L 136 L Potassium 3.3 L 3.9 Chloride 100 103 Carbon Dioxide 30 29 BUN 9 9 Creatinine 0.51 L 0.54 Estimated GFR > 60 > 60 BUN/Creatinine Ratio 17.6 16.7 Glucose 104 111 H Calcium 11.1 H 10.8 H Magnesium 1.3 L 2.4 H Total Bilirubin 0.4 AST 38 H ALT 19 Alkaline Phosphatase 340 H Total Protein 6.4 Albumin 3.3 L Globulin 3.1 Albumin/Globulin Ratio 1.1 PFSH Medical History Dyslipidemia Essential hypertension History of bladder cancer Surgical History History of appendectomy Family History Father CVA (cerebral vascular accident) Mother Diabetes mellitus Social History marital status: household members: family lives independently: Yes (In assisted community) caregiver/support person: No Smoking Status: Former smoker Tobacco: How many years used: 40 alcohol intake: former substance use type: does not use additional social history: Daughter lives in [place]. Assessment & Plan Assessment & Plan narrative: 1. Acute weakness and encephalopathy suspect from hypercalcemia and metastatic cancer, POA. -initial calcium 12.8, with albumin 3.2 -suspect hypercalcemia secondary to lung malignancy -Ca down to 11.6 -goals of care discussion with daughter KELSY and son due to worsening metastatin lung cancer, and it was decided to place patient on comfort measures and enroll in hospice. Now DNR. 2. Hypomagmesemia, POA and improved. -suspect secondary to poor oral intake 3. Hypovolemic hyponatremia, POA. -improved with IVF 4. Left acute mid thigh pain, POA. - Xray left femur with possible lytic lesion from mets 5. Atrial fibrillation, chronic. POA and stable. -rate controlled -stopped metop and eliquis due to comfort measures 6. Recent femur fracture, POA and stable. 7. Metastatic lung cancer, POA. -following at [facility] -now comfort care and hospice being arranged Dispo: Home with family to [place] once hospice arranged. Time Spent With Patient Time with patient: 30 to 49 minutes with 50% spent counseling/coordinating care Quality VTE Deep Vein Thrombosis/Pulmonary Embolism Present on Admission: No
[2022-11-28 17:16] VITALS: BP 157/80; PULSE 71; RESP 20; TEMP 37.6; O2SAT 88
[2022-11-29] MEDS: MORPHINE 2 MG/ML INJ IV ×10 (02:40→23:25)
[2022-11-29] MEDS: LORazepam 2 MG/ML INJ 1 MG IV ×8 (02:40→23:25)
[2022-11-29 07:00] VITALS: BP 124/63; PULSE 78; RESP 17; TEMP 37; O2SAT 88
[2022-11-29 09:09] LABS: Parathyroid Hormone, Intact 5 pg/mL (15-65)
--- NOTE | 2022-11-29 15:06 | CM.DPC ---
DCP Hospice Planning: Per MD and RN, pt now nonresponsive and on comfort morphine and oxygen for comfort as well but still producing urine and currently does not appear to be actively expiring. SW spoke to Sarah at [facility] who states Dtr declined DME delivery today as she feels she needs to be bedside with pt who seems to be dying right now and not agreeable to pt discharge yet today. Sarah confirmed with Dtr that if pt remains stable through the weekend ([facility] does not have openings for intake this ) then Dtr is agreeable to DME delivery 12/02 and [facility] likely can open Friday as well. Sarah placed order for DME delivery Friday. Plan; SW to follow to determine if pt is imminent over the and if pt remains stable then plan of d/c with family and [facility] DME delivery Friday morning and [facility] to open Friday afternoon. ALINA Morfin
--- NOTE | 2022-11-29 16:40 | P.PN_ITS ---
Subjective Subjective Interval history: Patient declining rapidly. No longer eating or drinking. is likely imminent. Exam Vital Signs (past 8 hours): Oxygen Delivery Method Room Air Oxygen Flow Rate 0 Narrative Exam Narrative: Obtunded. Lungs clear CV regular without murmur. Abdomen non-distended. No leg edema. Objective Labs 11/28/22 11:50 11/28/22 11:50 Labs: Laboratory Results - last 24 hr 11/27/22 05:28 PTH Intact 5 L Calcium (PTH Intact) 12.0 H PTH Intact Intraop Comment PFSH Medical History Dyslipidemia Essential hypertension History of bladder cancer Surgical History History of appendectomy Family History Father CVA (cerebral vascular accident) Mother Diabetes mellitus Social History marital status: household members: family lives independently: Yes (In assisted community) caregiver/support person: No Smoking Status: Former smoker Tobacco: How many years used: 40 alcohol intake: former substance use type: does not use additional social history: Daughter lives in [place]. Assessment & Plan Assessment & Plan narrative: 1. Acute weakness and encephalopathy suspect from hypercalcemia and metastatic cancer, POA. -initial calcium 12.8, with albumin 3.2 -suspect hypercalcemia secondary to lung malignancy -Ca down to 11.6 -now full comfort care 2. Hypomagmesemia, POA and improved. -suspect secondary to poor oral intake 3. Hypovolemic hyponatremia, POA. -improved with IVF 4. Left acute mid thigh pain, POA. - Xray left femur with possible lytic lesion from mets 5. Atrial fibrillation, chronic. POA and stable. -rate controlled -stopped metop and eliquis due to comfort measures 6. Recent femur fracture, POA and stable. 7. Metastatic lung cancer, POA. -following at [facility] -now comfort care and hospice being arranged Dispo: Will likely pass in hospital. Hospice being arranged just in case. Time Spent With Patient Time with patient: 30 to 49 minutes with 50% spent counseling/coordinating care Quality VTE Deep Vein Thrombosis/Pulmonary Embolism Present on Admission: No
--- NOTE | 2022-11-29 16:41 | PT.IPTN ---
Current Diagnoses Hypercalcemia (11/26/22) Physical Therapy Treatment Note M2 PT-IP Current Condition Start: 11/27/22 08:02 Freq: NEEDED Status: Active Protocol: Document 11/27/22 11:40 MB (Rec: 11/27/22 12:42 MB [id number]) Physical Therapy Current Condition Current Condition Evaluation Date 11/27/22 Treatment Diagnosis Weakness M3 PT-IP Subjective Start: 11/27/22 08:02 Freq: NEEDED Status: Active Protocol: Document 11/29/22 16:40 AB (Rec: 11/29/22 16:41 AB [id number]) Subjective Physical Therapy Visit Type Type Administrative Note Notes pt going on hospice care. no further PT needed. M7 PT-IP Assessment and Plan Start: 11/27/22 08:02 Freq: NEEDED Status: Active Protocol: Document 11/29/22 16:40 AB (Rec: 11/29/22 16:41 AB [id number]) PT Summary Assessment and Plan Frequency of Treatment Frequency Of Treatment Discharge
[2022-11-30] MEDS: SCOPOLAMINE 1 PATCH TOP (00:45)
[2022-11-30] MEDS: MORPHINE 2 MG/ML INJ IV ×16 (01:00→22:02)
[2022-11-30] MEDS: LORazepam 2 MG/ML INJ 1 MG IV ×15 (01:00→21:04)
[2022-11-30 05:58] VITALS: TEMP 37; O2SAT 85
[2022-11-30] MEDS: ATROPINE 1% OPHTH 2 DROPS SL ×2 (08:35→11:29)
[2022-11-30] MEDS: SODIUM CHLORIDE 0.9% FLUSH 10 ML IV ×2 (13:01→20:14)
--- NOTE | 2022-11-30 16:40 | PM.PN.1 ---
Subjective Subjective Date Patient Seen: 11/30/22 Time Patient Seen: 08:00 Interval history: Patient is comfort care. Has been comfortable per nursing. Exam Vital Signs (past 8 hours): Oxygen Delivery Method Room Air Oxygen Flow Rate 0 Narrative Exam Narrative: GEN: comfortable, not responsive Objective Labs 11/28/22 11:50 11/28/22 11:50 [facility] Medical History Dyslipidemia Essential hypertension History of bladder cancer Surgical History History of appendectomy Family History Father CVA (cerebral vascular accident) Mother Diabetes mellitus Social History marital status: household members: family lives independently: Yes (In residential community) caregiver/support person: No Smoking Status: Former smoker Tobacco: How many years used: 40 alcohol intake: former substance use type: does not use additional social history: Daughter lives in [place]. Assessment & Plan Assessment & Plan narrative: 1. Acute weakness and encephalopathy suspect from hypercalcemia and metastatic cancer, POA. -initial calcium 12.8, with albumin 3.2 -suspect hypercalcemia secondary to lung malignancy -Ca down to 11.6 -now full comfort care 2. Hypomagmesemia, POA and improved. -suspect secondary to poor oral intake 3. Hypovolemic hyponatremia, POA. -improved with IVF 4. Left acute mid thigh pain, POA. - Xray left femur with possible lytic lesion from mets 5. Atrial fibrillation, chronic. POA and stable. -rate controlled -stopped metop and eliquis due to comfort measures 6. Recent femur fracture, POA and stable. 7. Metastatic lung cancer, POA. -following at [facility] -now comfort care and hospice being arranged Time Spent With Patient Time with patient: 30 to 49 minutes with 50% spent counseling/coordinating care Quality VTE Deep Vein Thrombosis/Pulmonary Embolism Present on Admission: No
--- NOTE | 2022-12-01 09:08 | CM.DPC ---
DCP Continued: Per chart, patient last night in hospital late last night. VOLLEYBALL COMMENTATOR called [facility] to cancel referral. Intake accepted information and said he would report it to his team. CM team will continue to follow as needed. ALINA Domínguez
--- NOTE | 2022-12-01 14:43 | PM.DDS.1 ---
Discharge Summary History of Illness Chief Complaint: Weakness Narrative: Ms. Sylvester is an 82W with PMH metastatic lung cancer, afib on eliquis, htn, recent fall and pathologic left femur fracture who presents with confusion and weakness. She had been sent to rehab after last admission a couple months ago. She was back at home with family. Over the last few days especially they have noted she is weaker, poor appetite, and disoriented. The patient tries to provide history, but according to family she is not completely coherent currently. She has some left leg pain in the quad that has worsened over the last few days. No worsening shortness of breath. No fevers. She does have a consistent mild cough. In the ED workup was done, vitals notable for afebrile, heart rate 50s, respiratory rate 20s, blood pressure 150s/90s. Labs reviewed by me and notable for WBC 12.0, hgb 10.4, plts 364. Na 134, creatinine 0.55. Ca 12.8. trop negative. Ca 12.8. UA showed no acute abnormality. Chest xray showed known lung cancer. She was ordered for IV fluids and lasix and admitted for further treatment. Hospital Course Date of Admission: 11/26/22 16:00 Primary care provider: Denise Figueroa PA-C Consults: 11/26/22 17:06 Consult to Occupational Therapy Evaluate & Treat Comment: Physician Instructions: Evaluate and treat Consult to Physical Therapy Evaluate & Treat Comment: Physician Instructions: Evaluate and Treat 11/26/22 18:19 Consult to Physical Therapy Evaluate & Treat Comment: Physician Instructions: Evaluate and Treat 11/28/22 13:10 Consult to [facility] [place] - Measurement Technician Routine Comment: hospice [facility]29[facility]22 08:[facility]: end stage cancer now going on hospice Discharge provider: Dr. Burnett Discharge Diagnosis: 1. Acute hypercalcemia 2. Metastatic lung cancer 3. Atrial fibrillation 4. Acute encephalopathy secondary to hypercalcemia Hospital Course: Ms. Sylvester was admitted with hypercalcemia and metastatic lung cancer. She was treated with fluids and her calcium lowered. She was encephalopathic due to hypercalcemia. With discussion with multpile members of the family goals of care were clear that the patient would be on comfort care. She in the hospital with family at bedside on 11/30 at 22:20 Objective Labs 11/28/22 11:50 11/28/22 11:50
== END 2022-11-30 22:20 | disposition expired | DRG 640 ==
LOC: ED 16:00 → AC 16:01
PROVIDERS: Student in an Organized Health Care Education/Training Program; Admitting Provider Internal Medicine; Emergency Provider Emergency Medicine; PCP Physician Assistant; Referring Provider Emergency Medicine; Visit Provider Internal Medicine
DX: E83.52 Hypercalcemia (principal); G93.41 Metabolic encephalopathy; C34.90 Malignant neoplasm of unspecified part of unspecified bronchus or lung; E87.1 Hypo-osmolality and hyponatremia; C79.9 Secondary malignant neoplasm of unspecified site; E83.42 Hypomagnesemia; I48.91 Unspecified atrial fibrillation; E86.1 Hypovolemia; I10 Essential (primary) hypertension; Z87.311 Personal history of (healed) other pathological fracture; Z79.01 Long term (current) use of anticoagulants; Z51.5 Encounter for palliative care; Z66 Do not resuscitate; Z87.891 Personal history of nicotine dependence
CPT/HCPCS: 36415; 71045; 73552; 80048; 80053; 81003; 82310; 82550; 83690; 83735; 83970; 84100; 84484; 85025; 85610; 85730; 93005; 96374; 97162; 99284; J1940; J2060; J2270; J3475; J3489